=== PATIENT | male | born 1935 | race Caucasian/White ===

== ENCOUNTER → 2016-06-14 | Outpatient (CLI) | payer MEDICARE ==
--- NOTE | 2016-06-14 15:26 | CT ---
EXAMINATION TYPE: CT chest w con DATE OF EXAM: 06/14/2016 2:55 PM COMPARISON: CT chest March 08, 2016 HISTORY: Recheck RUL lung tumor s/p radiation. CT DLP: 657.00 mGycm. Automated Exposure Control for Dose Reduction was Utilized. TECHNIQUE: CT scan of the thorax is performed following with IV Contrast, patient injected with 80 m L of Visipaque 320. FINDINGS: LUNGS: Moderate underlying emphysematous changes redemonstrated. 8 mm Scarlike opacity right lung ape x is seen and felt stable with increasing surrounding reticulation suspected fibrosis may be product of treatment. No new parenchymal nodule or mass is identified in either lung. A 3 mm nodular opacity left lower lobe on axial image 47 is unchanged from prior study image 48. A 6 x 5 mm nodular opacity right lateral lung base on axial image 50 is stable. No pleural effusion or pneumothorax is seen bila terally. Tracheobronchial tree is patent. MEDIASTINUM: There are no new greater than 1 cm hilar or mediastinal lymph nodes. Slightly prominent but subcentimeter paratracheal and subcarinal lymph nodes are stable. No pericardial effusion is see n. There is persistent cardiomegaly with mild to moderate biatrial dilatation. Coronary artery calci fication is redemonstrated. OTHER: Small degree of bilateral gynecomastia is noted. Moderate size hiatal hernia is redemonstrated . There is partial visualization of multiple cystic lesions in the bilateral kidneys with dominant ex ophytic cyst upper pole level posteriorly right kidney redemonstrated. Hydronephrosis versus central right renal cyst is stable. There is moderate to severe mixed plaque in the aortic arch and descendin g aorta. IMPRESSION: Stable scarlike nodule right lung apex with new surrounding fibrotic change. No new mass or adenopathy noted.
== END ==
LOC: RADCTMAIN 12:56
PROVIDERS: ATTEND Radiology Radiation Oncology
DX: D49.1 Neoplasm of unspecified behavior of respiratory system (principal); Z88.6 Allergy status to analgesic agent; Z88.5 Allergy status to narcotic agent
CPT/HCPCS: 82565; 84520; 71260; 36415; Q9967

== ENCOUNTER 2016-07-10 20:30 | Emergency (ER) | payer MEDICARE ==
[2016-07-10 20:39] VITALS: PULSE 60; RESP 18
--- NOTE | 2016-07-10 21:38 | ED ---
General Adult HPI - General Source: patient, family, RN notes reviewed Mode of arrival: ambulatory Limitations: no limitations <Noé Zhou - Last Filed: 07/10/16 22:01> <Kofi Beavers - Last Filed: 07/11/16 09:02> - General Chief complaint: Eye Problems Stated complaint: eye issues-has Macular degeneration Time Seen by Provider: 07/10/16 21:11 - History of Present Illness Initial comments: Patient is an 81-year-old male with significant past medical history for macular degeneration, who presents emergency room today with chief complaint of increased redness irritation and pain to the right eye. He states he noticed some symptoms yesterday and has gotten worse today. at bedside also stating that she's noticed increased redness today. Patient does admit some irritation and pain locally. States does have history of macular degeneration does have very little vision out of the right eye. Patient states is been no visual change. He does admit irritation locally. He denies any other complaints. Patient denies any recent fever, chills, shortness of breath, chest pain, back pain, abdominal pain, nausea or vomiting, numbness or tingling, dysuria or hematuria, constipation or diarrhea, headaches or visual changes, or any other complaints. (Noé Zhou) - Related Data Home Medications Medication Instructions Recorded Confirmed Atorvastatin [Lipitor] 10 mg PO DAILY 04/21/14 07/10/16 Cyanocobalamin [Vitamin B-12] 1,000 mcg SQ QMONTH 04/21/14 07/10/16 Donepezil [Aricept] 10 mg PO DAILY 04/21/14 07/10/16 Ergocalciferol [Vitamin D2 50,000 unit PO Q30D 04/21/14 07/10/16 (DRISDOL)] Ezetimibe [Zetia] 10 mg PO DAILY 04/21/14 07/10/16 Fenofibrate Nanocrystallized 48 mg PO DAILY 04/21/14 07/10/16 [Fenofibrate] Fluticasone/Salmeterol [Advair 1 inhalation PO BID 04/21/14 07/10/16 250-50 Diskus] Furosemide [Lasix] 20 mg PO DIRECTED 04/21/14 07/10/16 Lansoprazole [Prevacid] 15 mg PO DAILY 04/21/14 07/10/16 Levothyroxine Sodium [Synthroid] 125 mcg PO DAILY 04/21/14 07/10/16 Metoprolol Tartrate [Lopressor] 50 mg PO DAILY 04/21/14 07/10/16 Mometasone Furoate [Nasonex] 17 gm NS DAILY 04/21/14 07/10/16 Pioglitazone [Actos] 30 mg PO DAILY 04/21/14 07/10/16 Sertraline [Zoloft] 50 mg PO DAILY 04/21/14 07/10/16 Tamsulosin [Flomax] 0.8 mg PO DAILY 04/21/14 07/10/16 Valsartan [Diovan] 160 mg PO DAILY 04/21/14 07/10/16 amLODIPine [Norvasc] 10 mg PO DAILY 04/21/14 07/10/16 hydrALAZINE HCL 100 mg PO BID 04/21/14 07/10/16 Previous Rx's Medication Instructions Recorded Meclizine [Antivert] 25 mg PO TID #20 tab 04/21/14 Tobramycin 0.3% Ophth Soln [Tobrex 1 - 2 drop BOTH EYES QID 7 Days 07/10/16 0.3% Ophth Soln] Allergies Allergy/AdvReac Type Severity Reaction Status Date / Time aspirin Allergy Unknown Verified 07/10/16 20:38 codeine Allergy Unknown Verified 07/10/16 20:38 Review of Systems ROS Other: All systems not noted in ROS Statement are negative. <Noé Zhou - Last Filed: 07/10/16 22:01> ROS Other: All systems not noted in ROS Statement are negative. <Kofi Beavers - Last Filed: 07/11/16 09:02> ROS Statement: Those systems with pertinent positive or pertinent negative responses have been documented in the HPI. Past Medical History Past Medical History: Diabetes Mellitus, Hyperlipidemia, Hypertension, Thyroid Disorder Additional Past Medical History / Comment(s): macular degeneration History of Any Multi-Drug Resistant Organisms: None Reported Past Surgical History: Heart Catheterization With Stent, Hernia Repair Past Psychological History: No Psychological Hx Reported Smoking Status: Former smoker Past Alcohol Use History: None Reported Past Drug Use History: None Reported <Noé Zhou - Last Filed: 07/10/16 22:01> General Exam Limitations: no limitations <Noé Zhou - Last Filed: 07/10/16 22:01> <NimeshKofi - Last Filed: 07/11/16 09:02> - General Exam Comments Initial Comments: General: The patient is awake and alert, in no distress, and does not appear acutely ill. Eye: Pupils are equal, round and reactive to light, extra-ocular movements are intact. No nystagmus. Increased redness irritation to the right conjunctiva. Left conjunctiva clear. Ocular pressure 27 on the right 9 on the left. Ears, nose, mouth and throat: There are moist mucous membranes and no oral lesions. Neck: The neck is supple, there is no tenderness or JVD. Cardiovascular: There is a regular rate and rhythm. No murmur, rub or gallop is appreciated. Respiratory: Lungs are clear to auscultation, respirations are non-labored, breath sounds are equal. No wheezes, stridor, rales, or rhonchi. Musculoskeletal: Normal ROM, no tenderness. Strength 5/5. Sensation intact. Pulses equal bilaterally 2+. Neurological: A&O x 3. CN II-XII intact, There are no obvious motor or sensory deficits. Coordination appears grossly intact. Speech is normal. Skin: Skin is warm and dry and no rashes or lesions are noted. Psychiatric: Cooperative, appropriate mood & affect, normal judgment. (Noé Zhou) Medical Decision Making <Noé Zhou - Last Filed: 07/10/16 22:01> <Kofi Beavers - Last Filed: 07/11/16 09:02> - Medical Decision Making Patient's right eye was stained and checked underneath Way lamp showed no discharge or lesions. No sign of foreign body. No corneal abrasion. No corneal ulcer. Patient did have some relief with proparacaine drops stating this made her feel better. Patient's pressure was checked here the emergency room 27. Is currently on Xalantan to treat eye pressure. Patient seen in conjunction with attending Dr Beavers. Case discussed with teacher specialist nutritional services director Dr. Mark. Patient will be started on antibiotic drops and advised follow- up with teacher specialist over the next 1-2 days. Advised return here to emergency room if symptoms increase worsen or for concerns. (Noé Zhou) I saw this patient in conjunction with the physician assistant district attorney. I performed independent history and physical exam. Agree with case management. (Kofi Beavers) Disposition Time of Disposition: 22:04 <Noé Zhou - Last Filed: 07/10/16 22:01> <Kofi Beavers - Last Filed: 07/11/16 09:02> Clinical Impression: Conjunctivitis Disposition: HOME SELF-CARE Condition: Good Instructions: Conjunctivitis (ED) Additional Instructions: Please use antibiotic drops as prescribed and follow-up with teacher specialist in the next 2 days as discussed. Please return to emergency room if any symptoms increase or worsen or for any other concerns. Prescriptions: Tobramycin 0.3% Ophth Soln [Tobrex 0.3% Ophth Soln] 1 - 2 drop BOTH EYES QID 7 Days Referrals: Scotty Kimball DO [Primary Care Provider] - 1-2 days
[2016-07-10] MEDS ORDERED: PROPARACAINE 0.5% OPHTH DROPS 15 ML BTL RIGHT EYE STA (21:40)
[2016-07-10 22:50] VITALS: BP 160/70; TEMP 98
== END 2016-07-10 22:50 | disposition home or self-care (01) ==
LOC: EC 20:30
DX: H10.9 Unspecified conjunctivitis (principal); H35.30 Unspecified macular degeneration; I10 Essential (primary) hypertension; E78.5 Hyperlipidemia, unspecified; Z95.5 Presence of coronary angioplasty implant and graft; Z87.891 Personal history of nicotine dependence; Z79.51 Long term (current) use of inhaled steroids; Z79.899 Other long term (current) drug therapy; E07.9 Disorder of thyroid, unspecified; Z88.5 Allergy status to narcotic agent; Z88.6 Allergy status to analgesic agent
CPT/HCPCS: 99283

== ENCOUNTER → 2016-09-17 | Outpatient (CLI) | payer MEDICARE ==
--- NOTE | 2016-09-17 13:33 | CT ---
EXAMINATION TYPE: CT chest wo con DATE OF EXAM: 09/17/2016 COMPARISON: Prior chest CTs June 14, 2016 and March 08, 2016 HISTORY: RUL lobe cancer CT DLP: 380.00 mGycm. Automated Exposure Control for Dose Reduction was Utilized. TECHNIQUE: CT scan of the thorax is performed without IV contrast. IV contrast could not be given du e to diminished renal function. FINDINGS: LUNGS: Moderate underlying emphysematous change is redemonstrated. Scarlike opacity right lung apex i s redemonstrated. This is difficult to accurately measure due to surrounding reticulation in the regu lar soft tissue, it is felt slightly more prominent measuring 1.3 x 0.9 cm on axial image 9 prior exa ms. A 3 mm subpleural nodule left lower lobe posteriorly on axial image 45 is unchanged from prior st udy. A 7 x 4 mm nodular opacity lateral right lung base on axial image 42 is stable from prior. There is stable 5 x 5 mm groundglass nodule anteriorly subpleural level right midlung on axial image 30. N o new nodules or masses are clearly seen. Dependent atelectatic changes both lower lungs is present. No pleural effusion or pneumothorax is seen bilaterally. MEDIASTINUM: Lack of IV contrast is noted to limit evaluation for mediastinal and especially hilar ad enopathy. There are no definitive greater than 1 cm hilar or mediastinal lymph nodes. No significan t pericardial effusion is seen. Cardiomegaly is redemonstrated. Three-vessel coronary artery calcific ation is redemonstrated which is noted marker for coronary artery disease. OTHER: Small degree of bilateral gynecomastia is redemonstrated. There is stable moderate size hiatal hernia. Dependent density consistent with small gallstones in gallbladder is redemonstrated. There a re multiple cysts scattered throughout both kidneys with large cyst partially imaged and right kidney . Hydronephrosis versus large central right renal cyst is stable. An inferior level of right adrenal gland there is nonspecific 2.6 x 2.5 cm right hypodense retroperitoneal mass stable in retrospect fro m prior exams in which adrenal metastatic lesion is not entirely excluded. There is moderate to sever e multilevel spurring in the spine redemonstrated. Exaggerated thoracic kyphosis is seen. IMPRESSION: Scarlike opacity right lung apex is stable or perhaps slightly more prominent versus prio r exam, neoplastic etiology is suspected based on history. Cannot exclude inferior posterior limb rig ht adrenal metastatic lesion. Correlate with outside PET/CT or imaging, consider PET/CT follow-up if there is no such outside study.
== END | disposition home or self-care (01) ==
LOC: RADCTMAIN 11:19
PROVIDERS: ATTEND Radiology Radiation Oncology
DX: C34.11 Malignant neoplasm of upper lobe, right bronchus or lung (principal)
CPT/HCPCS: 71250; 82565; 84520

== ENCOUNTER 2016-11-07 16:33 | Emergency (ER) | payer BC, MEDICARE ==
[2016-11-07 16:46] VITALS: RESP 18
[2016-11-07] MEDS ORDERED: SODIUM CHLORIDE 0.9% 1,000 ML IV STA (17:09)
--- NOTE | 2016-11-07 17:21 | ED ---
General Adult HPI - General Chief complaint: Recheck/Abnormal Lab/Rx Stated complaint: Brusing on Arms Time Seen by Provider: 11/07/16 16:55 Source: family, RN notes reviewed Mode of arrival: ambulatory Limitations: altered mental status - History of Present Illness Initial comments: Patient's an 81-year-old male who presents emergency room today with a chief complaint of some bruising to the upper extremities. He does admit that he noticed some bruises to the back of the right hand and leg left forearm today. Denies any specific injury or trauma. Does admit that he takes a daily baby aspirin. Denies any other blood thinners. Patient denies any other complaints. Further questioning patient does admit that he's had some episodes of feeling dizzy. He states he last for just a few seconds. He states that been ongoing over the last few months. Patient denies any other complaints or symptoms. She denies any dizziness or lightheadedness at this time. Patient denies any recent fever, chills, shortness of breath, chest pain, abdominal pain , nausea or vomiting, numbness or tingling, dysuria or hematuria, constipation or diarrhea, headaches or visual changes, or any other complaints. - Related Data Home Medications Medication Instructions Recorded Confirmed Atorvastatin [Lipitor] 10 mg PO DAILY 04/21/14 11/07/16 Ergocalciferol [Vitamin D2 50,000 unit PO Q14D 04/21/14 11/07/16 (DRISDOL)] Fluticasone/Salmeterol [Advair 1 puff INHALATION RT-BID 04/21/14 11/07/16 250-50 Diskus] Furosemide [Lasix] 20 mg PO MOWEFR 04/21/14 11/07/16 Levothyroxine Sodium [Synthroid] 125 mcg PO MOTUWETHFR 04/21/14 11/07/16 Metoprolol Tartrate [Lopressor] 50 mg PO DAILY 04/21/14 11/07/16 Sertraline [Zoloft] 50 mg PO DAILY 04/21/14 11/07/16 Tamsulosin [Flomax] 0.4 mg PO BID 04/21/14 11/07/16 amLODIPine [Norvasc] 10 mg PO DAILY 04/21/14 11/07/16 hydrALAZINE HCL 50 mg PO TID 04/21/14 11/07/16 Aspirin EC [Ecotrin Low Dose] 81 mg PO HS 11/07/16 11/07/16 Brimonidine Tartrate [Alphagan P 1 drops BOTH EYES BID 11/07/16 11/07/16 0.15% Ophth Soln] Lansoprazole [Prevacid] 30 mg PO DAILY 11/07/16 11/07/16 Latanoprost [Xalatan 0.005%] 1 drop RIGHT EYE HS 11/07/16 11/07/16 Allergies Allergy/AdvReac Type Severity Reaction Status Date / Time aspirin AdvReac Nausea Verified 11/07/16 17:55 codeine AdvReac Nausea & Verified 11/07/16 17:55 Vomiting Review of Systems ROS Statement: Those systems with pertinent positive or pertinent negative responses have been documented in the HPI. ROS Other: All systems not noted in ROS Statement are negative. Past Medical History Past Medical History: Diabetes Mellitus, Hyperlipidemia, Hypertension, Thyroid Disorder Additional Past Medical History / Comment(s): macular degeneration History of Any Multi-Drug Resistant Organisms: None Reported Past Surgical History: Heart Catheterization With Stent, Hernia Repair Past Psychological History: No Psychological Hx Reported Smoking Status: Former smoker Past Alcohol Use History: None Reported Past Drug Use History: None Reported General Exam - General Exam Comments Initial Comments: General: The patient is awake and alert, in no distress, and does not appear acutely ill. Eye: Pupils are equal, round and reactive to light, extra-ocular movements are intact. No nystagmus. There is normal conjunctiva bilaterally. No signs of icterus. Ears, nose, mouth and throat: There are moist mucous membranes and no oral lesions. Neck: The neck is supple, there is no tenderness or JVD. Cardiovascular: There is a regular rate and rhythm. No murmur, rub or gallop is appreciated. Respiratory: Lungs are clear to auscultation, respirations are non-labored, breath sounds are equal. No wheezes, stridor, rales, or rhonchi. Gastrointestinal: Soft, non-distended, non-tender abdomen without masses or organomegaly noted. There is no rebound or guarding present. No CVA tenderness. Bowel sounds are unremarkable. Musculoskeletal: Normal ROM, no tenderness. Strength 5/5. Sensation intact. Pulses equal bilaterally 2+. Neurological: A&O x 3. CN II-XII intact, There are no obvious motor or sensory deficits. Coordination appears grossly intact. Speech is normal. Skin: Skin is warm and dry and no rashes or lesions are noted. Psychiatric: Cooperative, appropriate mood & affect, normal judgment. Limitations: altered mental status Course Vital Signs 11/07/16 16:44 Temperature 97.5 F L Pulse Rate 57 L Respiratory 18 Rate Blood Pressure 149/62 O2 Sat by Pulse 98 Oximetry Medical Decision Making - Medical Decision Making Patient reexamined at this time shows no signs of distress. Patient's kidney function slightly elevated here in the emergency room and shows similar on recent labs. Patient's remaining labs are unremarkable. Case discussed with attending physician Dr. Granado. Patient was given 500 mL bolus here the emergency room. Advised to increase his oral fluids. Advised to follow-up with family doctor. Patient feeling well here the emergency room asymptomatic. Patient will be discharged home - Lab Data Result diagrams: 11/07/16 17:15 11/07/16 17:15 Lab Results 11/07/16 11/07/16 11/07/16 Range/Units 17:15 17:15 17:15 WBC 6.2 (3.8-10.6) k/uL RBC 4.25 L (4.30-5.90) m/uL Hgb 13.0 (13.0-17.5) gm/dL Hct 38.8 L (39.0-53.0) % MCV 91.4 (80.0-100.0) fL MCH 30.5 (25.0-35.0) pg MCHC 33.4 (31.0-37.0) g/dL RDW 14.5 (11.5-15.5) % Plt Count 188 (150-450) k/uL Neutrophils % 69 % Lymphocytes % 16 % Monocytes % 10 % Eosinophils % 2 % Basophils % 1 % Neutrophils # 4.3 (1.3-7.7) k/uL Lymphocytes # 1.0 (1.0-4.8) k/uL Monocytes # 0.6 (0-1.0) k/uL Eosinophils # 0.2 (0-0.7) k/uL Basophils # 0.0 (0-0.2) k/uL PT 10.0 (9.0-12.0) sec INR 1.0 (<1.2) APTT 22.8 (22.0-30.0) sec Sodium 139 (137-145) mmol/L Potassium 4.2 (3.5-5.1) mmol/L Chloride 108 H (98-107) mmol/L Carbon Dioxide 21 L (22-30) mmol/L Anion Gap 10 mmol/L BUN 36 H (9-20) mg/dL Creatinine 1.72 H (0.66-1.25) mg/dL Est GFR (MDRD) Af Amer 46 (>60 ml/min/1.73 sqM) Est GFR (MDRD) Non-Af 38 (>60 ml/min/1.73 sqM) Glucose 101 H (74-99) mg/dL Calcium 8.5 (8.4-10.2) mg/dL Total Bilirubin 0.4 (0.2-1.3) mg/dL AST 23 (17-59) U/L ALT 31 (21-72) U/L Alkaline Phosphatase 103 (38-126) U/L Total Protein 5.9 L (6.3-8.2) g/dL Albumin 3.6 (3.5-5.0) g/dL Disposition Clinical Impression: Lightheaded, Arm bruise Disposition: HOME SELF-CARE Condition: Good Instructions: Lightheadedness (ED) Additional Instructions: Please increase oral fluids as discussed. Please follow family doctor over the next 2 days. Please return to emergency room if any symptoms increase or worsen or for any other concerns. Referrals: Scotty Kimball DO [Primary Care Provider] - 1-2 days Time of Disposition: 18:21
[2016-11-07 17:33] LABS: Basophils % (A) 1 %; CH 31.4; CHCM 34.6; Eosinophils # (A) 0.2 k/uL (0-0.7); Eosinophils % (A) 2 %; HCT 38.8 % (39.0-53.0); Luc # (Auto) 0.16; Luc % (Auto) 3; Lymphocytes % (A) 16 %; MCH 30.5 pg (25.0-35.0); MCHC 33.4 g/dL (31.0-37.0); MCV 91.4 fL (80.0-100.0); Mean Platelet Volume 7.7; Monocytes # (A) 0.6 k/uL (0-1.0); Monocytes % (A) 10 %; Neutrophils # (A) 4.3 k/uL (1.3-7.7); Neutrophils % (A) 69 %; RBC 4.25 m/uL (4.30-5.90); RDW 14.5 % (11.5-15.5); WBC 6.2 k/uL (3.8-10.6); WBC (Perox) 6.28
[2016-11-07 17:36] LABS: Partial Thromboplastin Time 22.8 sec (22.0-30.0)
[2016-11-07 17:38] LABS: Calcium 8.5 mg/dL (8.4-10.2); Potassium 4.2 mmol/L (3.5-5.1); Total Bilirubin 0.4 mg/dL (0.2-1.3); Total Protein 5.9 g/dL (6.3-8.2)
[2016-11-07] MEDS ORDERED: SODIUM CHLORIDE 0.9% 500 ML IV STA (18:13)
[2016-11-07 18:57] VITALS: BP 157/75; PULSE 54; TEMP 97.3
== END 2016-11-07 19:12 | disposition home or self-care (01) ==
LOC: EC 16:33
DX: S60.211A Contusion of right wrist, initial encounter (principal); S80.11XA Contusion of right lower leg, initial encounter; S50.12XA Contusion of left forearm, initial encounter; R42 Dizziness and giddiness; E78.5 Hyperlipidemia, unspecified; E07.9 Disorder of thyroid, unspecified; I10 Essential (primary) hypertension; Z87.891 Personal history of nicotine dependence; Z79.51 Long term (current) use of inhaled steroids; Z79.82 Long term (current) use of aspirin; Z79.899 Other long term (current) drug therapy; Z88.5 Allergy status to narcotic agent; Z88.6 Allergy status to analgesic agent
CPT/HCPCS: 36415; 80053; 85025; 85610; 85730; 99283

== ENCOUNTER → 2017-01-24 | Outpatient (CLI) | payer MEDICARE ==
--- NOTE | 2017-01-24 13:46 | CT ---
EXAMINATION TYPE: CT chest wo con DATE OF EXAM: 01/24/2017 COMPARISON: 09/17/2016 HISTORY: Patient has no complaints at time of service. Follow up study for history of lung CA. CT DLP: 605 mGycm. Automated Exposure Control for Dose Reduction was Utilized. TECHNIQUE: CT scan of the thorax is performed without IV contrast. FINDINGS: LUNGS: Moderate underlying emphysematous change is redemonstrated. Scarlike opacity right lung apex i s redemonstrated. This is difficult to accurately measure due to surrounding reticulation in the regu lar soft tissue, it is felt slightly stable measuring 1.3 x 0.9 cm. A 3 mm subpleural nodule left low er lobe posteriorly is unchanged from prior study. A 7 x 4 mm nodular opacity lateral right lung base is stable from prior. There is stable 5 x 5 mm giancarlo undglass nodule anteriorly subpleural level right midlung. Subpleural nodularity in the right upper l obe inferiorly along the anterior margin is stable. 4 mm nodule left lower lobe retrospectively stabl e there are multiple left lower lobe nodules measuring 4 mm or less which are retrospectively stable some of which appear to be subpleural. Vague nodularity in the right middle lobe on axial image 40 an d anteriorly on axial image 34 within the right upper lobe are nondescript in appearance but stable. No new nodules or masses are clearly seen. Dependent atelectatic changes both lower lungs is present. No pleural effusion or pneumothorax is seen bilaterally. MEDIASTINUM: Lack of IV contrast is noted to limit evaluation for mediastinal and especially hilar ad enopathy. There are no definitive greater than 1 cm hilar or mediastinal lymph nodes. No significant pericardial effusion is seen. Cardiomegaly is redemonstrated. Three-vessel coronary artery calcificat ion is redemonstrated which is noted marker for coronary artery disease. OTHER: Small degree of bilateral gynecomastia is redemonstrated. There is stable moderate size hiatal hernia. Dependent density consistent with small gallstones in gallbladder is redemonstrated. There a re multiple cysts scattered throughout both kidneys with large cyst partially imaged and right kidney . Hydronephrosis versus large central right renal cyst is stable. An inferior level of right adrenal gland there is nonspecific 2.6 x 2.5 cm right hypodense retroperitoneal mass stable in retrospect fro m prior exams in which adrenal metastatic lesion is not entirely excluded. There is moderate to sever e multilevel spurring in the spine redemonstrated. Exaggerated thoracic kyphosis is seen. Cholelithia sis stable. There is a hiatal hernia. IMPRESSION: 1. Stable areas of nodularity involving the lungs unchanged with no new areas of nodularity or adenop athy. 2. Multiple renal masses some of which are hyperdense and may represent hemorrhagic cyst. Other etiol ogies not excluded. Findings are stable. 3. Stable right adrenal nodule unchanged from prior exam. 4. Cholelithiasis
== END | disposition home or self-care (01) ==
LOC: RADCTMAIN 13:00
PROVIDERS: ATTEND Radiology Radiation Oncology
DX: C34.11 Malignant neoplasm of upper lobe, right bronchus or lung (principal); E27.8 Other specified disorders of adrenal gland; K80.20 Calculus of gallbladder without cholecystitis without obstruction; Z88.5 Allergy status to narcotic agent
CPT/HCPCS: 71250

== ENCOUNTER 2017-06-08 17:35 | Emergency (ER) | payer MEDICARE ==
[2017-06-08 17:49] VITALS: RESP 18
--- NOTE | 2017-06-08 18:17 | ED ---
Male Urogenital HPI - General Chief complaint: Urogenital Stated complaint: Urinary retention Time Seen by Provider: 06/08/17 17:41 Source: EMS, RN notes reviewed, old records reviewed Mode of arrival: EMS Limitations: altered mental status - History of Present Illness Initial comments: This patient is a pleasant 81-year-old male with history of dementia presents emergency Department with his after being transferred from [facility]. Patient was sent and due to urinary retention. He is being treated at this time for urinary tract infection. Patient has history of BPH.Patient denies any recent fever, chills, shortness of breath, chest pain, back pain, abdominal pain, nausea vomiting, numbness or tingling, dysuria or hematuria, constipation or diarrhea, headaches or visual changes, or any other current symptoms - Related Data Home Medications Medication Instructions Recorded Confirmed Atorvastatin [Lipitor] 10 mg PO DAILY 04/21/14 06/08/17 Ergocalciferol [Vitamin D2 50,000 unit PO Q15D 04/21/14 06/08/17 (DRISDOL)] Fluticasone/Salmeterol [Advair 1 puff INHALATION RT-BID 04/21/14 06/08/17 250-50 Diskus] Metoprolol Tartrate [Lopressor] 50 mg PO DAILY 04/21/14 06/08/17 Sertraline [Zoloft] 50 mg PO DAILY 04/21/14 06/08/17 Tamsulosin [Flomax] 0.4 mg PO HS 04/21/14 06/08/17 amLODIPine [Norvasc] 10 mg PO DAILY 04/21/14 06/08/17 Aspirin EC [Ecotrin Low Dose] 81 mg PO DAILY@1700 11/07/16 06/08/17 Lansoprazole [Prevacid] 30 mg PO HS 11/07/16 06/08/17 Latanoprost [Xalatan 0.005%] 1 drop BOTH EYES DAILY 11/07/16 06/08/17 Acetaminophen-Codeine 300-30mg 0.5 tab PO Q4H PRN 06/08/17 06/08/17 [Tylenol #3] Amoxicillin 500 mg PO TID 06/08/17 06/08/17 Bisacodyl [Dulcolax] 10 mg RECTAL DAILY PRN 06/08/17 06/08/17 Docusate [Colace] 100 mg PO BID@0800,1700 06/08/17 06/08/17 Enoxaparin Sodium [Lovenox] 30 mg SQ DAILY 06/08/17 06/08/17 Gabapentin [Neurontin] 200 mg PO HS 06/08/17 06/08/17 Glucerna Shake 1 can PO BID-W/MEALS 06/08/17 06/08/17 Lidocaine [Lidoderm 5% Patch] 1 patch TRANSDERM DAILY 06/08/17 06/08/17 Magnesium Hydroxide [Milk of 2,400 mg PO DAILY PRN 06/08/17 06/08/17 Magnesia] Na Phos,M-B/Na Phos,Di-Ba [Fleet 133 ml RECTAL ONCE PRN 06/08/17 06/08/17 Adult] busPIRone HCl [Buspar] 10 mg PO BID PRN 06/08/17 06/08/17 hydrALAZINE HCL 75 mg PO BID 06/08/17 06/08/17 traMADol HCL [Ultram] 100 mg PO Q4HR PRN 06/08/17 06/08/17 Previous Rx's Medication Instructions Recorded Ciprofloxacin HCl [Cipro] 500 mg PO Q12HR 10 Days tab 06/08/17 Mupirocin 2% Oint [Bactroban 2% 1 applic TOPICAL TID #1 tube 06/08/17 Oint] Allergies Allergy/AdvReac Type Severity Reaction Status Date / Time codeine AdvReac Nausea & Verified 06/08/17 17:54 Vomiting Review of Systems ROS Statement: Those systems with pertinent positive or pertinent negative responses have been documented in the HPI. ROS Other: All systems not noted in ROS Statement are negative. Past Medical History Past Medical History: Diabetes Mellitus, Hyperlipidemia, Hypertension, Thyroid Disorder Additional Past Medical History / Comment(s): macular degeneration History of Any Multi-Drug Resistant Organisms: None Reported Past Surgical History: Heart Catheterization With Stent, Hernia Repair Past Psychological History: No Psychological Hx Reported Smoking Status: Former smoker Past Alcohol Use History: None Reported Past Drug Use History: None Reported General Exam - General Exam Comments Initial Comments: This patient is a 81-year-old male. Pleasant. No acute distress. Patient is hard of hearing and has poor visual acuity. Y states is chronic. He is suffering from dementia. Patient's reports that this is baseline status. Limitations: altered mental status General appearance: alert, in no apparent distress Eye exam: Present: normal appearance, PERRL, EOMI. Absent: scleral icterus, conjunctival injection, periorbital swelling ENT exam: Present: normal exam, mucous membranes moist Neck exam: Present: normal inspection. Absent: tenderness, meningismus, lymphadenopathy Respiratory exam: Present: normal lung sounds bilaterally. Absent: respiratory distress, wheezes, rales, rhonchi, stridor Cardiovascular Exam: Present: regular rate, normal rhythm, normal heart sounds. Absent: systolic murmur, diastolic murmur, rubs, gallop, clicks GI/Abdominal exam: Present: soft, tenderness (suprapubic tenderness, mild distension), normal bowel sounds. Absent: distended, guarding, rebound, rigid exam: Present: other (Patient has edema of the foreskin. It is retractable.) . Absent: normal inspection, testicular tenderness, urethral discharge Extremities exam: Present: normal inspection, full ROM, normal capillary refill. Absent: tenderness, pedal edema, joint swelling, calf tenderness Back exam: Present: normal inspection, full ROM Neurological exam: Present: alert, oriented X3, CN II-XII intact Psychiatric exam: Present: normal affect, normal mood Skin exam: Present: warm, dry, intact, normal color. Absent: rash Course Vital Signs 06/08/17 06/08/17 17:40 19:41 Temperature 97.3 F L 98.0 F Pulse Rate 57 L 59 L Respiratory 18 18 Rate Blood Pressure 145/71 160/77 O2 Sat by Pulse 94 L 94 L Oximetry Medical Decision Making - Medical Decision Making 81-year-old female presents emergency department today chief complaint of urinary retention. Patient was sent here for extended care facility after they were not able to obtain a new urinary catheter initiation. He has history of BPH. Patient was given a 14-[place] coud catheter. And urine output completed. We drained approximately 500 mL of fluid. Urine analysis was obtained. He does have red blood cells and white blood cells. We'll send this for culture. We'll start the patient on Cipro for UTI.. Patient's reports that he is been treated for a UTI but does not know the exact antibiotic. I discussed I'll write him for this and they can determine of will be appropriate back it more would facility. They also state that he has a follow-up appointment with urology on Tuesday. He does have some area of swelling around the foreskin, I will treat the patient for some paraphimosis inflammation with mupirocin cream. I discussed that they need to keep the appointment with urologist. Patient's understands treatment plan. Patient has been cooperative. He does suffer from some significant dementia. He has no other complaints at this time. Patient will be transported back to [facility] care facility due to immobilization and dementia. - Lab Data Lab Results 06/08/17 Range/Units 18:15 Urine Color Dark Brown Urine Appearance Cloudy (Clear) Urine pH 6.0 (5.0-8.0) Ur Specific [place] 1.016 (1.001-1.035) Urine Protein 2+ H (Negative) Urine Glucose (UA) Negative (Negative) Urine Ketones Negative (Negative) Urine Blood Moderate H (Negative) Urine Nitrite Positive (Negative) Urine Bilirubin 1+ H (Negative) Urine Urobilinogen 3.0 (<2.0) mg/dL Ur Leukocyte Esterase Moderate H (Negative) Urine RBC >182 H (0-5) /hpf Urine WBC 37 H (0-5) /hpf Urine Bacteria Occasional H (None) /hpf Hyaline Casts 4 H (0-2) /lpf Urine Mucus Rare H (None) /hpf Disposition Clinical Impression: Posthitis, Urinary retention, UTI (urinary tract infection) Disposition: HOME SELF-CARE Condition: Good Instructions: Urinary Tract Infection in Men (ED) Additional Instructions: Patient advised to follow-up with primary care provider. Return to the emergency department if any alarming signs or symptoms occur. Prescriptions: Ciprofloxacin HCl [Cipro] 500 mg PO Q12HR 10 Days tab Mupirocin 2% Oint [Bactroban 2% Oint] 1 applic TOPICAL TID #1 tube Referrals: Neo Baez MD [Primary Care Provider] - 1-2 days Time of Disposition: 19:23
[2017-06-08 19:09] LABS: Appearance,Urine Cloudy (Clear); Bacteria,Urine Occasional /hpf; Bilirubin,Urine 1+ (Negative); Blood,Urine Moderate (Negative); Color,Urine Dark Brown; Glucose,Urine (UA) Negative (Negative); Hyaline Casts,Urine 4 /lpf (0-2); Ketones,Urine Negative (Negative); Leukocyte Esterase,Urine Moderate (Negative); Mucus,Urine Rare /hpf; Protein,Urine 2+ (Negative); RBC,Urine >182 /hpf (0-5); Specific Gravity,Urine 1.016 (1.001-1.035); WBC,Urine 37 /hpf (0-5)
[2017-06-08] MEDS ORDERED: CIPROFLOXACIN HCL 250 MG TAB PO STA (19:21)
[2017-06-08 19:43] VITALS: BP 160/77; PULSE 59; TEMP 98
== END 2017-06-08 21:10 | disposition home or self-care (01) ==
LOC: EC 17:35
DX: N47.7 Other inflammatory diseases of prepuce (principal); N39.0 Urinary tract infection, site not specified; R33.9 Retention of urine, unspecified; N40.0 Benign prostatic hyperplasia without lower urinary tract symptoms; E11.9 Type 2 diabetes mellitus without complications; E78.5 Hyperlipidemia, unspecified; I10 Essential (primary) hypertension; E07.9 Disorder of thyroid, unspecified; Z87.891 Personal history of nicotine dependence; Z79.51 Long term (current) use of inhaled steroids; Z79.82 Long term (current) use of aspirin; Z79.899 Other long term (current) drug therapy; Z88.5 Allergy status to narcotic agent
CPT/HCPCS: 51702; 51798; 81001; 87086; 99284

== ENCOUNTER 2017-06-12 20:24 | Emergency (ER) | payer MEDICARE ==
[2017-06-12 20:51] VITALS: TEMP 97.6
[2017-06-12] MEDS ORDERED: MORPHINE SULFATE 4 MG/ML SYRINGE IVP STA (20:54)
[2017-06-12 21:40] LABS: Anisocytosis Slight; Basophils % (A) 0 %; Eosinophils # (A) 0.1 k/uL (0-0.7); Eosinophils % (A) 1 %; HCT 32.1 % (39.0-53.0); HGB 10.2 gm/dL (13.0-17.5); Lymphocytes # (A) 0.9 k/uL (1.0-4.8); Lymphocytes % (A) 8 %; MCHC 31.8 g/dL (31.0-37.0); MCV 88.1 fL (80.0-100.0); Monocytes # (A) 0.5 k/uL (0-1.0); Monocytes % (A) 5 %; Neutrophils # (A) 10.1 k/uL (1.3-7.7); Neutrophils % (A) 86 %; Platelet Count 287 k/uL (150-450); RBC 3.64 m/uL (4.30-5.90); RDW 16.1 % (11.5-15.5); WBC 11.8 k/uL (3.8-10.6)
--- NOTE | 2017-06-12 21:47 | ED ---
Abdominal Pain HPI - General Chief Complaint: Abdominal Pain Stated Complaint: urine retention Time Seen by Provider: 06/12/17 20:46 Source: patient, EMS Mode of arrival: EMS Limitations: no limitations - History of Present Illness Initial Comments: 80 years old male with a history of for benign prostate hypertrophy, according to patient and his he never had a prostate cancer no prostate surgery he never had a radiation or chemotherapy for prostate problems he has a history of urinary retention he had a Strange catheter and Strange catheter was not draining well at the half-way they changed the Strange with the try to reposition the though there were able to insert the Strange but he didn't drain, after that there was quite swelling of the genitals and numb he has greater than 1 L in his bladder and now is not able to void the appointment with the Dr. Roy tomorrow - Related Data Home Medications Medication Instructions Recorded Confirmed Atorvastatin [Lipitor] 10 mg PO DAILY@0804/21/14 06/12/17 Ergocalciferol [Vitamin D2 50,000 unit PO Q15D 04/21/14 06/12/17 (DRISDOL)] Fluticasone/Salmeterol [Advair 1 puff INHALATION RT-BID@08,209904/21/1406/12 250-50 Diskus] Metoprolol Tartrate [Lopressor] 50 mg PO DAILY@79904/21/14 06/12/17 Sertraline [Zoloft] 50 mg PO DAILY@79904/21/14 06/12/17 Tamsulosin [Flomax] 0.4 mg PO HS@209904/21/14 06/12/17 amLODIPine [Norvasc] 10 mg PO DAILY@79904/21/14 06/12/17 Aspirin EC [Ecotrin Low Dose] 81 mg PO DAILY@17011/07/16 06/12/17 Lansoprazole [Prevacid] 30 mg PO HS@209911/07/16 06/12/17 Latanoprost [Xalatan 0.005%] 1 drop BOTH EYES DAILY@79911/07/16 06/12/17 Acetaminophen-Codeine 300-30mg 0.5 tab PO Q4H PRN 06/08/17 06/12/17 [Tylenol #3] Amoxicillin 500 mg PO TID@0800,1400,199906/08/17 06/12/17 Bisacodyl [Dulcolax] 10 mg RECTAL DAILY PRN 06/08/17 06/12/17 Docusate [Colace] 100 mg PO BID@0800,1700 06/08/17 06/12/17 Enoxaparin Sodium [Lovenox] 30 mg SQ DAILY@0800 06/08/17 06/12/17 Gabapentin [Neurontin] 200 mg PO HS@209906/08/17 06/12/17 Glucerna Shake 1 can PO BID@0800,1700 06/08/17 06/12/17 Lidocaine [Lidoderm 5% Patch] 1 patch TRANSDERM DAILY 06/08/17 06/12/17 Magnesium Hydroxide [Milk of 2,400 mg PO DAILY PRN 06/08/17 06/12/17 Magnesia] Na Phos,M-B/Na Phos,Di-Ba [Fleet 133 ml RECTAL ONCE PRN 06/08/17 06/12/17 Adult] busPIRone HCl [Buspar] 10 mg PO BID PRN 06/08/17 06/12/17 hydrALAZINE HCL 75 mg PO BID@0800,209906/08/17 06/12/17 traMADol HCL [Ultram] 100 mg PO Q4HR PRN 06/08/17 06/12/17 Allergies Allergy/AdvReac Type Severity Reaction Status Date / Time codeine AdvReac Nausea & Verified 06/12/17 20:57 Vomiting Review of Systems ROS Statement: Those systems with pertinent positive or pertinent negative responses have been documented in the HPI. ROS Other: All systems not noted in ROS Statement are negative. Past Medical History Past Medical History: Diabetes Mellitus, Hyperlipidemia, Hypertension, Thyroid Disorder Additional Past Medical History / Comment(s): macular degeneration History of Any Multi-Drug Resistant Organisms: None Reported Past Surgical History: Heart Catheterization With Stent, Hernia Repair Past Psychological History: No Psychological Hx Reported Smoking Status: Former smoker Past Alcohol Use History: None Reported Past Drug Use History: None Reported General Exam - General Exam Comments Initial Comments: General: The patient is awake and alert, in severe distress because of the pain Skin: Skin is warm and dry and no rashes or lesions are noted. Eye: Pupils are equal, round and reactive to light, extra-ocular movements are intact; there is normal conjunctiva bilaterally. Ears, nose, mouth and throat: There are moist mucous membranes and no oral lesions. Neck: The neck is supple, there is no tenderness Cardiovascular: There is a regular rate and rhythm. No murmur, rub or gallop is appreciated. Respiratory: To auscultation bilateral, no wheezing no rhonchi no distress respiratory drew noticed Gastrointestinal: Soft, non-tender in the upper abdomen but he is tender over the lower abdomen, better seems distended and obvious Back: There is no tenderness to palpation in the midline. There is no obvious deformity. Musculoskeletal: Normal ROM, no tenderness, There is no pedal edema. There is no calf tenderness or swelling. No cords were appreciated. Neurological: CN II-XII intact, Cranial nerves III through XII are intact. There are no obvious motor or sensory deficits. Coordination appears grossly intact. Speech is normal. Psychiatric: Cooperative, appropriate mood & affect, normal judgment. Limitations: no limitations Course Vital Signs 06/12/17 20:46 Temperature 97.6 F Pulse Rate 61 Respiratory 18 Rate Blood Pressure 134/60 O2 Sat by Pulse 97 Oximetry [place] possibility of a ureteral injury, call Dr. Meade that came and agreed to come in and will arrange the cystoscopy cart for him Dr. Meade came in he put the Strange back in with the help of a scope, patient will follow-up with urology per their instructions Medical Decision Making - Lab Data Result diagrams: 06/12/17 21:30 06/12/17 21:30 Lab Results 06/12/17 06/12/17 Range/Units 21:30 21:30 WBC 11.8 H (3.8-10.6) k/uL RBC 3.64 L (4.30-5.90) m/uL Hgb 10.2 L (13.0-17.5) gm/dL Hct 32.1 L (39.0-53.0) % MCV 88.1 (80.0-100.0) fL MCH 28.0 (25.0-35.0) pg MCHC 31.8 (31.0-37.0) g/dL RDW 16.1 H (11.5-15.5) % Plt Count 287 (150-450) k/uL Neutrophils % 86 % Lymphocytes % 8 % Monocytes % 5 % Eosinophils % 1 % Basophils % 0 % Neutrophils # 10.1 H (1.3-7.7) k/uL Lymphocytes # 0.9 L (1.0-4.8) k/uL Monocytes # 0.5 (0-1.0) k/uL Eosinophils # 0.1 (0-0.7) k/uL Basophils # 0.0 (0-0.2) k/uL Anisocytosis Slight Sodium 132 L (137-145) mmol/L Potassium 4.8 (3.5-5.1) mmol/L Chloride 104 (98-107) mmol/L Carbon Dioxide 22 (22-30) mmol/L Anion Gap 6 mmol/L BUN 30 H (9-20) mg/dL Creatinine 2.10 H (0.66-1.25) mg/dL Est GFR (MDRD) Af Amer 37 (>60 ml/min/1.73 sqM) Est GFR (MDRD) Non-Af 30 (>60 ml/min/1.73 sqM) Glucose 127 H (74-99) mg/dL Calcium 8.6 (8.4-10.2) mg/dL Total Bilirubin 0.5 (0.2-1.3) mg/dL AST 21 (17-59) U/L ALT 21 (21-72) U/L Alkaline Phosphatase 99 (38-126) U/L Total Protein 5.0 L (6.3-8.2) g/dL Albumin 2.7 L (3.5-5.0) g/dL Amylase 61 (30-110) U/L Lipase 164 (23-300) U/L Disposition Clinical Impression: Urinary retention Disposition: HOME SELF-CARE Condition: Good Referrals: Neo Baez MD [Primary Care Provider] - 1-2 days
[2017-06-12 21:49] LABS: Albumin 2.7 g/dL (3.5-5.0); Calcium 8.6 mg/dL (8.4-10.2); Potassium 4.8 mmol/L (3.5-5.1); Total Bilirubin 0.5 mg/dL (0.2-1.3)
[2017-06-12] MEDS ORDERED: MORPHINE SULFATE 4 MG/ML SYRINGE IVP ONE (22:04)
--- NOTE | 2017-06-12 23:24 | P.GSCN ---
History of Present Illness Consult date: 06/12/17 Reason for Consult: Urinary retention and inability to insert catheter History of present illness: The patient is an 81-year-old male who fractured his left femur on 05/06/2017. He was treated at [facility] in [facility] apparently with an intramedullary janessa. A catheter was inserted at that time and the patient apparently has been unable to void since then. The catheter was changed in the [facility] emergency room on 06/08. The patient was transferred from his skilled nursing this evening apparently because he had poor urine output and his catheter was exchanged and only minimal urine drained. In addition to this the patient had paraphimosis from previous attempts at placement of a catheter. When the patient came to the emergency room this evening he was bladder scanned and reportedly had 1000 mL in his bladder. I was asked see the patient for the purpose of catheter placement as an attempt was made to insert a catheter by the nurses and this was unsuccessful. According to the patient's he usually voids every 1-2 hours during the day and several times at night. He has no previous history of urinary retention. He has had recent diarrhea and has not been eating well although reportedly he has been taking fluids. Review of Systems - Constitutional Denies fever - Cardiovascular Denies shortness of breath - Gastrointestinal Reports diarrhea, Reports nausea - Genitourinary Reports as per HPI Past Medical History Past Medical History: Diabetes Mellitus, Hyperlipidemia, Hypertension, Thyroid Disorder Additional Past Medical History / Comment(s): macular degeneration History of Any Multi-Drug Resistant Organisms: None Reported Past Surgical History: Heart Catheterization With Stent, Hernia Repair Additional Past Surgical History / Comment(s): Fixation of fractured left femur Past Psychological History: No Psychological Hx Reported Smoking Status: Former smoker Past Alcohol Use History: None Reported Past Drug Use History: None Reported Medications and Allergies Home Medications Medication Instructions Recorded Confirmed Type Atorvastatin [Lipitor] 10 mg PO DAILY@0800 04/21/14 06/12/17 History Ergocalciferol [Vitamin D2 50,000 unit PO Q15D 04/21/14 06/12/17 History (DRISDOL)] Fluticasone/Salmeterol [Advair 1 puff INHALATION RT-BID@0800,2100 04/21/1406/12 History 250-50 Diskus] Metoprolol Tartrate [Lopressor] 50 mg PO DAILY@0800 04/21/14 06/12/17 History Sertraline [Zoloft] 50 mg PO DAILY@79904/21/14 06/12/17 History Tamsulosin [Flomax] 0.4 mg PO HS@209904/21/14 06/12/17 History amLODIPine [Norvasc] 10 mg PO DAILY@0804/21/14 06/12/17 History Aspirin EC [Ecotrin Low Dose] 81 mg PO DAILY@169911/07/16 06/12/17 History Lansoprazole [Prevacid] 30 mg PO HS@209911/07/16 06/12/17 History Latanoprost [Xalatan 0.005%] 1 drop BOTH EYES DAILY@79911/07/16 06/12/17 History Acetaminophen-Codeine 300-30mg 0.5 tab PO Q4H PRN 06/08/17 06/12/17 History [Tylenol #3] Amoxicillin 500 mg PO TID@0800,1400,199906/08/17 06/12/17 History Bisacodyl [Dulcolax] 10 mg RECTAL DAILY PRN 06/08/17 06/12/17 History Docusate [Colace] 100 mg PO BID@0800,169906/08/17 06/12/17 History Enoxaparin Sodium [Lovenox] 30 mg SQ DAILY@79906/08/17 06/12/17 History Gabapentin [Neurontin] 200 mg PO HS@209906/08/17 06/12/17 History Glucerna Shake 1 can PO BID@0800,169906/08/17 06/12/17 History Lidocaine [Lidoderm 5% Patch] 1 patch TRANSDERM DAILY 06/08/17 06/12/17 History Magnesium Hydroxide [Milk of 2,400 mg PO DAILY PRN 06/08/17 06/12/17 History Magnesia] Na Phos,M-B/Na Phos,Di-Ba [Fleet 133 ml RECTAL ONCE PRN 06/08/17 06/12/17 History Adult] busPIRone HCl [Buspar] 10 mg PO BID PRN 06/08/17 06/12/17 History hydrALAZINE HCL 75 mg PO BID@0800,209906/08/17 06/12/17 History traMADol HCL [Ultram] 100 mg PO Q4HR PRN 06/08/17 06/12/17 History Allergies Allergy/AdvReac Type Severity Reaction Status Date / Time codeine AdvReac Nausea & Verified 06/12/17 20:57 Vomiting Surgical - Exam Vital Signs Temp Pulse Resp BP Pulse Ox 97.6 F 61 18 134/60 97 06/12/17 20:46 06/12/17 20:46 06/12/17 20:46 06/12/17 20:46 06/12/17 20:46 - General moderate distress, obese - Respiratory normal respiratory effort - Abdomen Abdomen: no masses, distended Hernia: none - Genitourinary testicles non-tender, other (The penis is uncircumcised and had been retracted behind the glans causing paraphimosis. The paraphimosis was reduced and the glans and urethral meatus appeared normal. There was no blood at the urethral meatus.) - Rectum Rectum: normal sphincter tone, other (Prostate is 1-2+ enlarged and benign in consistency) Results - Labs 06/12/17 21:30 06/12/17 21:30 Abnormal Lab Results - Last 24 Hours (Table) 06/12/17 06/12/17 Range/Units 21:30 21:30 WBC 11.8 H (3.8-10.6) k/uL RBC 3.64 L (4.30-5.90) m/uL Hgb 10.2 L (13.0-17.5) gm/dL Hct 32.1 L (39.0-53.0) % RDW 16.1 H (11.5-15.5) % Neutrophils # 10.1 H (1.3-7.7) k/uL Lymphocytes # 0.9 L (1.0-4.8) k/uL Sodium 132 L (137-145) mmol/L BUN 30 H (9-20) mg/dL Creatinine 2.10 H (0.66-1.25) mg/dL Glucose 127 H (74-99) mg/dL Total Protein 5.0 L (6.3-8.2) g/dL Albumin 2.7 L (3.5-5.0) g/dL Diabetes panel 06/12/17 Range/Units 21:30 Sodium 132 L (137-145) mmol/L Potassium 4.8 (3.5-5.1) mmol/L Chloride 104 (98-107) mmol/L Carbon Dioxide 22 (22-30) mmol/L BUN 30 H (9-20) mg/dL Creatinine 2.10 H (0.66-1.25) mg/dL Glucose 127 H (74-99) mg/dL Calcium 8.6 (8.4-10.2) mg/dL AST 21 (17-59) U/L ALT 21 (21-72) U/L Alkaline Phosphatase 99 (38-126) U/L Total Protein 5.0 L (6.3-8.2) g/dL Albumin 2.7 L (3.5-5.0) g/dL Calcium panel 06/12/17 Range/Units 21:30 Calcium 8.6 (8.4-10.2) mg/dL Albumin 2.7 L (3.5-5.0) g/dL Pituitary panel 06/12/17 Range/Units 21:30 Sodium 132 L (137-145) mmol/L Potassium 4.8 (3.5-5.1) mmol/L Chloride 104 (98-107) mmol/L Carbon Dioxide 22 (22-30) mmol/L BUN 30 H (9-20) mg/dL Creatinine 2.10 H (0.66-1.25) mg/dL Glucose 127 H (74-99) mg/dL Calcium 8.6 (8.4-10.2) mg/dL Adrenal panel 06/12/17 Range/Units 21:30 Sodium 132 L (137-145) mmol/L Potassium 4.8 (3.5-5.1) mmol/L Chloride 104 (98-107) mmol/L Carbon Dioxide 22 (22-30) mmol/L BUN 30 H (9-20) mg/dL Creatinine 2.10 H (0.66-1.25) mg/dL Glucose 127 H (74-99) mg/dL Calcium 8.6 (8.4-10.2) mg/dL Total Bilirubin 0.5 (0.2-1.3) mg/dL AST 21 (17-59) U/L ALT 21 (21-72) U/L Alkaline Phosphatase 99 (38-126) U/L Total Protein 5.0 L (6.3-8.2) g/dL Albumin 2.7 L (3.5-5.0) g/dL Assessment and Plan (1) Urinary retention Narrative/Plan: Urinary retention with paraphimosis-Following my examination I passed a 16- [place]raini coud catheter without difficulty into the bladder and the catheter would easily irrigate into the bladder but no drainage would return. I then passed a 20-Bahraini coud catheter into the bladder and had the same problem. Following this I performed cystoscopy and there did not appear to be any trauma to the urethra. Urine present within the bladder was clear. The 20-[place]i coud catheter was then passed over a Glidewire which was passed through the cystoscope and approximately 150 mL of concentrated urine drained. I repeated the bladder scan and there did not appear to be any remaining urine present within the bladder. My final impression is that this patient most likely had only a small amount of urine present within his bladder and the original bladder scan was incorrect. The catheter was left to drainage. He did have an appointment to see Dr. Gallegos in my office later this week. Current Visit: Yes Status: Acute Code(s): R33.9 - RETENTION OF URINE, UNSPECIFIED SNOMED Code(s): 563909236 Time with Patient: Greater than 30
--- NOTE | 2017-06-12 23:30 | P.OP ---
Date of Procedure: 06/12/17 Preoperative Diagnosis: Urinary retention and inability to insert catheter Postoperative Diagnosis: Relatively normal urethra with no visible trauma. Reduced urine output- possibly secondary to recent diarrhea. Procedure(s) Performed: Cystoscopy Estimated Blood Loss (ml): 0 Pathology: none sent Condition: stable Disposition: same day Indications for Procedure: Patient is an 81-year-old male who was transferred from a senior living because he apparently had no urine output after his catheter was changed earlier today. It was unclear whether the patient was in urinary retention or the patient was oliguric. A bladder scan performed when he initially came to the emergency room reportedly showed 1000 mL. Several attempts were made to insert a catheter but virtually no urine drained from the bladder. Cystoscopy was planned due to the uncertainty as to whether the catheters were actually in the bladder. Description of Procedure: The patient was placed supine on his emergency room bed. The penis was prepped with Betadine solution and draped in a sterile fashion. The 16-Malagasy flexible cystoscope was passed through the urethra under direct vision. Anterior urethra was free of inflammatory lesion tumor and stricture. Prostatic urethra showed evidence of moderate lateral lobe enlargement. No visible trauma was present within the urethra. The bladder was examined and a moderate amount of urine was present within it but the urine was relatively clear. A 0.035 straight Glidewire was then advanced through the cystoscope and into the bladder. The cystoscope was withdrawn leaving the Glidewire in place. The 20- Malagasy coud catheter was modified with a slit at its tip and advanced over the Glidewire and into the bladder. Approximately 150 mL of concentrated urine drained. Patient tolerated procedure well. Bladder scan was performed after placement of the catheter and showed less than 30 mL within the bladder.
[2017-06-13 00:19] VITALS: BP 158/75; PULSE 80; RESP 16
== END 2017-06-13 00:17 | disposition home or self-care (01) ==
LOC: EC 20:24
DX: R33.9 Retention of urine, unspecified (principal); E78.5 Hyperlipidemia, unspecified; I10 Essential (primary) hypertension; E66.9 Obesity, unspecified; Z87.891 Personal history of nicotine dependence; Z79.51 Long term (current) use of inhaled steroids; Z79.82 Long term (current) use of aspirin; Z79.899 Other long term (current) drug therapy; Z88.5 Allergy status to narcotic agent; Z68.32 Body mass index [BMI] 32.0-32.9, adult
CPT/HCPCS: 51798; 36415; 80053; 82150; 83690; 85025; 99285; 96374; 51702; J2270

== ENCOUNTER 2017-06-14 13:12 | Inpatient (IN) | payer MEDICARE ==
--- NOTE | 2017-06-14 14:19 | ED ---
General Adult HPI - General Chief complaint: Abdominal Pain Stated complaint: Abd.pain Time Seen by Provider: 06/14/17 13:20 Source: patient, family, EMS, RN notes reviewed, old records reviewed Mode of arrival: EMS Limitations: altered mental status - History of Present Illness Initial comments: Chief complaint and history of present illness this is an 81-year-old male here with family. The patient has been in a local nursing facility after being discharged from the hospital after having had a janessa placed in his left femur after a fall approximately one month ago. The patient has always had difficulty urinating. More recently the patient has had Strange catheters placed and replaced. Patient was in emergency room 2 nights ago and the urologist placed a catheter after doing a cystoscopy. His impression was minimal retention at the time. He was sent emergency room today by the nursing staff because of abdominal discomfort and again what appeared to be urinary retention. Bladder scan done upon arrival to emergency room showed 680 ML's of urine in the bladder. The urologist's report of his cystoscopy was left lobe of the prostate appeared to be enlarged. He had minimal to no difficulty placing a coud tipped catheter which is been draining. While in emergency room the patient will complain of chest discomfort. Which was given mild palpation of the anterior chest wall be created the pain per the patient. - Related Data Home Medications Medication Instructions Recorded Confirmed Atorvastatin [Lipitor] 10 mg PO DAILY@79904/21/14 06/14/17 Fluticasone/Salmeterol [Advair 1 puff INHALATION RT-BID@0800,209904/21/1406/14 250-50 Diskus] Metoprolol Tartrate [Lopressor] 50 mg PO DAILY@79904/21/14 06/14/17 Sertraline [Zoloft] 50 mg PO DAILY@79904/21/14 06/14/17 Tamsulosin [Flomax] 0.4 mg PO HS@209904/21/14 06/14/17 amLODIPine [Norvasc] 10 mg PO DAILY@79904/21/14 06/14/17 Aspirin EC [Ecotrin Low Dose] 81 mg PO DAILY@17011/07/16 06/14/17 Lansoprazole [Prevacid] 30 mg PO HS@209911/07/16 06/14/17 Latanoprost [Xalatan 0.005%] 1 drop BOTH EYES DAILY@0800 11/07/16 06/14/17 Acetaminophen-Codeine 300-30mg 0.5 tab PO Q4H PRN 06/08/17 06/14/17 [Tylenol #3] Amoxicillin 500 mg PO TID@0800,1400,199906/08/17 06/14/17 Bisacodyl [Dulcolax] 10 mg RECTAL DAILY PRN 06/08/17 06/14/17 Docusate [Colace] 100 mg PO BID@0800,1700 06/08/17 06/14/17 Gabapentin [Neurontin] 200 mg PO HS@209906/08/17 06/14/17 Glucerna Shake 1 can PO BID@0800,1700 06/08/17 06/14/17 Lidocaine [Lidoderm 5% Patch] 1 patch TRANSDERM DAILY@0800 06/08/17 06/14/17 Magnesium Hydroxide [Milk of 2,400 mg PO DAILY PRN 06/08/17 06/14/17 Magnesia] Na Phos,M-B/Na Phos,Di-Ba [Fleet 133 ml RECTAL ONCE PRN 06/08/17 06/14/17 Adult] hydrALAZINE HCL 75 mg PO BID@0800,209906/08/17 06/14/17 traMADol HCL [Ultram] 100 mg PO Q4HR PRN 06/08/17 06/14/17 Finasteride [Proscar] 5 mg PO DAILY 06/14/17 06/14/17 Allergies Allergy/AdvReac Type Severity Reaction Status Date / Time codeine AdvReac Nausea & Verified 06/14/17 13:28 Vomiting Review of Systems ROS Statement: Those systems with pertinent positive or pertinent negative responses have been documented in the HPI. review of systems. No apparent headache family reports patient does not see well. This caused him to stumble and fall approximately one month ago resulting in a fractured femur. The patient has had difficulty urinating and has had catheters placed and replaced for this problem. Currently with a catheter. Family reports the patient had diarrhea yesterday and abraded large normal bowel movement today. Nurses feels of the patient's mildly distended. Family states that is always a little distended but possibly slightly more today. The patient complains discomfort of the Strange catheter at the meatus of his penis. He also had paraphimosis 2 days ago which was reduced by Dr. segundo 2 days ago and is normal at this time. the patient was also seen in the correction by Dr. Roy yesterday. His notes were sent here, the patient's on amoxicillin and the catheter was functioning normally yesterday. past medical history significant for coronary artery disease, previous [place], hypertension, peripheral vascular disease, diabetes mellitus, vitamin D deficiency, hyperlipidemia, chronic constipation, GERD, BPH, chronic renal disease stage III, secondary to hypertensive nephrosclerosis. Recurrent UTIs, renal cyst, cataracts, macular degeneration COPD. Patient also has a history of lung cancer with previous treatment and thyroid cancer. Past surgeries cardiac cath, heart stents, femoral bypass, abdominal hernia repair, appendectomy, hemorrhoidectomy, TURP 2012, cataract surgery bilateral, thyroid surgery total thyroidectomy. He's had back surgery, bilateral hip replacements and left femur janessa placed approximate 6 weeks ago. Family history diabetes, high blood pressure. No current use of alcohol or cigarettes. ALLERGIES codeine. ROS Other: All systems not noted in ROS Statement are negative. Past Medical History Past Medical History: Diabetes Mellitus, Hyperlipidemia, Hypertension, Thyroid Disorder Additional Past Medical History / Comment(s): macular degeneration History of Any Multi-Drug Resistant Organisms: None Reported Past Surgical History: Heart Catheterization With Stent, Hernia Repair Additional Past Surgical History / Comment(s): Fixation of fractured left femur Past Psychological History: No Psychological Hx Reported Smoking Status: Former smoker Past Alcohol Use History: None Reported Past Drug Use History: None Reported General Exam - General Exam Comments Initial Comments: General: The patient is awake and alert, heart appearing. Complaining of chest heaviness which is reproducible. An abdominal pain as well as pain to his penis. [facility] sent emergency room because of these complaints plus decreased urine output. The patient does have indwelling Strange catheter placed by urologist 2 days ago and rechecked her urologist yesterday. Vital signs temperature 97.3 pulse 51 respiratory rate 20 pulse ox 95% on 2 L. 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 Ears, nose, mouth and throat: There are moist mucous membranes and no oral lesions. Neck: The neck is supple, Cardiovascular: There is a regular rate and rhythm. No murmur, rub or gallop is appreciated.during examination patient complains of chest discomfort has also been was sitting on him. Even mild palpation of anterior chest wall 3 crit the pain that the patient seemed to be complaining of. Denies any recent injury. Respiratory: Lungs are clear to auscultation, respirations are non-labored, breath sounds are equal. No wheezes, stridor, rales, or rhonchi. Gastrointestinal: nursing staff felt the patient's abdomen was mildly distended family states is normally distended may be slightly more now. Bladder scan was performed showing retained urine at approximate 680 ML's area he does have an indwelling Strange catheter which appears to be working. Palpation of the abdomen causes mild discomfort. No organomegaly appreciated. Fair amount of tympanitic gas appreciated. Active bowel sounds. Family states the patient had a large amount of loose stool yesterday and per family and nursing staff at a large good bowel movement normal this morning. Back: currently no complaints of back pain. Musculoskeletal: recent i.e. in the past 6 weeks, janessa placed the left femur and another hospital because of a fall .left heel is covered with a bandage for ulcer on the heel per family. Neurological: neurologically grossly intact, and not ambulating because of his recent surgery. Skin: Skin is warm and dry and no rashes or lesions are noted. Limitations: altered mental status Course Vital Signs 06/14/17 06/14/17 13:14 14:19 Temperature 97.3 F L Pulse Rate 51 L 52 L Respiratory 20 20 Rate Blood Pressure 126/59 133/65 O2 Sat by Pulse 95 98 Oximetry Medical Decision Making - Medical Decision Making Medical decision making; this is a 1-year-old male sent emergency room from nursing facility because increased abdominal bloating decreased urine output. The patient has a Strange catheter which showed 680 ML's urine in the bladder. nurse tried to irrigate the catheter she would put 50 or 60 ML's in and then slowly get 20 out. While in emergency room the patient's put out only 40 ML's over past several hours. Patient also complaining of chest discomfort which is reproducible. Labs show white count 9.9 hemoglobin 9.4 hematocrit 28.6 with a INR 1.0. Potassium 5.9 BUN 40 creatinine 2.1 GFR 28. Amylase lipase normal limits. Plasma lactic acid normal at 0.7. Urine no signs of leuk esterase or nitrite. By does have 14 reds 6 whites. Currently on amoxicillin. troponin 0.013 CK-MB 2.7. Chest x-ray was done and reviewed by radiologist his impression is #1 cardiomegaly, COPD and left basilar atelectasis favored over infiltrates. #2 upper mediastinal prominence stable dating back to multiple exams felt to be related to tortuous vasculature. #3 subsegmental chronic appearing consolidations are particularly should within the medial margin of the right upper lobe. As read by Dr. Palmer X-ray of the abdomen was done and reviewed radiologist his impression is lung bases are clear. Heart may be enlarged, size may be exaggerated by technique. There is no evident bowel obstruction or pneumoperitoneum. Gas filled loops of small and large bowel are noted. Postop changes noted to the hips. There are vascular calcifications within the pelvis. Impression; no acute abnormalities are evident. Follow-up is indicated. As read by Dr. Sanchez case discussed with Dr. Paulino. Patient be admitted her service with consultation from nephrology and urology. - Lab Data Result diagrams: 06/14/17 14:17 06/14/17 14:17 Lab Results 06/14/17 06/14/17 06/14/17 Range/Units 14:17 14:17 14:17 WBC 9.9 (3.8-10.6) k/uL RBC 3.28 L (4.30-5.90) m/uL Hgb 9.4 L (13.0-17.5) gm/dL Hct 28.6 L (39.0-53.0) % MCV 87.3 (80.0-100.0) fL MCH 28.6 (25.0-35.0) pg MCHC 32.7 (31.0-37.0) g/dL RDW 16.1 H (11.5-15.5) % Plt Count 263 (150-450) k/uL Neutrophils % 85 % Lymphocytes % 8 % Monocytes % 4 % Eosinophils % 2 % Basophils % 0 % Neutrophils # 8.4 H (1.3-7.7) k/uL Lymphocytes # 0.8 L (1.0-4.8) k/uL Monocytes # 0.4 (0-1.0) k/uL Eosinophils # 0.2 (0-0.7) k/uL Basophils # 0.0 (0-0.2) k/uL Anisocytosis Slight PT (9.0-12.0) sec INR (<1.2) APTT (22.0-30.0) sec Sodium 133 L (137-145) mmol/L Potassium 5.9 H (3.5-5.1) mmol/L Chloride 105 (98-107) mmol/L Carbon Dioxide 21 L (22-30) mmol/L Anion Gap 7 mmol/L BUN 40 H (9-20) mg/dL Creatinine 2.10 H (0.66-1.25) mg/dL Est GFR (CKD-EPI)AfAm 33 (>60 ml/min/1.73 sqM) Est GFR (CKD-EPI)NonAf 28 (>60 ml/min/1.73 sqM) Glucose 96 (74-99) mg/dL Plasma Lactic Acid Arian (0.7-2.0) mmol/L Calcium 8.0 L (8.4-10.2) mg/dL Total Bilirubin 0.9 (0.2-1.3) mg/dL AST 44 (17-59) U/L ALT 15 L (21-72) U/L Alkaline Phosphatase 75 (38-126) U/L Total Creatine Kinase 77 (55-170) U/L CK-MB (CK-2) 2.7 H* (0.0-2.4) ng/mL CK-MB (CK-2) Rel Index 3.5 Troponin I 0.013 (0.000-0.034) ng/mL Total Protein 5.4 L (6.3-8.2) g/dL Albumin 2.6 L (3.5-5.0) g/dL Amylase 38 (30-110) U/L Lipase 70 (23-300) U/L Urine Color Urine Appearance (Clear) Urine pH (5.0-8.0) Ur Specific Holloway (1.001-1.035) Urine Protein (Negative) Urine Glucose (UA) (Negative) Urine Ketones (Negative) Urine Blood (Negative) Urine Nitrite (Negative) Urine Bilirubin (Negative) Urine Urobilinogen (<2.0) mg/dL Ur Leukocyte Esterase (Negative) Urine RBC (0-5) /hpf Urine WBC (0-5) /hpf Ur Squamous Epith Cells (0-4) /hpf Urine Bacteria (None) /hpf Hyaline Casts (0-2) /lpf Urine Mucus (None) /hpf 06/14/17 06/14/17 06/14/17 Range/Units 14:17 14:17 14:30 WBC (3.8-10.6) k/uL RBC (4.30-5.90) m/uL Hgb (13.0-17.5) gm/dL Hct (39.0-53.0) % MCV (80.0-100.0) fL MCH (25.0-35.0) pg MCHC (31.0-37.0) g/dL RDW (11.5-15.5) % Plt Count (150-450) k/uL Neutrophils % % Lymphocytes % % Monocytes % % Eosinophils % % Basophils % % Neutrophils # (1.3-7.7) k/uL Lymphocytes # (1.0-4.8) k/uL Monocytes # (0-1.0) k/uL Eosinophils # (0-0.7) k/uL Basophils # (0-0.2) k/uL Anisocytosis PT 10.2 (9.0-12.0) sec INR 1.0 (<1.2) APTT 24.3 (22.0-30.0) sec Sodium (137-145) mmol/L Potassium (3.5-5.1) mmol/L Chloride (98-107) mmol/L Carbon Dioxide (22-30) mmol/L Anion Gap mmol/L BUN (9-20) mg/dL Creatinine (0.66-1.25) mg/dL Est GFR (CKD-EPI)AfAm (>60 ml/min/1.73 sqM) Est GFR (CKD-EPI)NonAf (>60 ml/min/1.73 sqM) Glucose (74-99) mg/dL Plasma Lactic Acid Arian 0.7 (0.7-2.0) mmol/L Calcium (8.4-10.2) mg/dL Total Bilirubin (0.2-1.3) mg/dL AST (17-59) U/L ALT (21-72) U/L Alkaline Phosphatase (38-126) U/L Total Creatine Kinase (55-170) U/L CK-MB (CK-2) (0.0-2.4) ng/mL CK-MB (CK-2) Rel Index Troponin I (0.000-0.034) ng/mL Total Protein (6.3-8.2) g/dL Albumin (3.5-5.0) g/dL Amylase (30-110) U/L Lipase (23-300) U/L Urine Color Yellow Urine Appearance Clear (Clear) Urine pH 5.5 (5.0-8.0) Ur Specific Holloway 1.016 (1.001-1.035) Urine Protein 1+ H (Negative) Urine Glucose (UA) Negative (Negative) Urine Ketones Negative (Negative) Urine Blood Negative (Negative) Urine Nitrite Negative (Negative) Urine Bilirubin Negative (Negative) Urine Urobilinogen <2.0 (<2.0) mg/dL Ur Leukocyte Esterase Small H (Negative) Urine RBC 14 H (0-5) /hpf Urine WBC 6 H (0-5) /hpf Ur Squamous Epith Cells <1 (0-4) /hpf Urine Bacteria Rare H (None) /hpf Hyaline Casts 3 H (0-2) /lpf Urine Mucus Rare H (None) /hpf Disposition Clinical Impression: Chronic renal failure, Atypical chest pain, Acute urinary retention Disposition: ADMITTED IP TO THIS [facility] Condition: Serious Referrals: Neo Baez MD [Primary Care Provider] - 1-2 days
[2017-06-14 14:30] LABS: Anisocytosis Slight; Basophils % (A) 0 %; Eosinophils # (A) 0.2 k/uL (0-0.7); Eosinophils % (A) 2 %; HCT 28.6 % (39.0-53.0); HGB 9.4 gm/dL (13.0-17.5); Lymphocytes # (A) 0.8 k/uL (1.0-4.8); Lymphocytes % (A) 8 %; MCH 28.6 pg (25.0-35.0); MCHC 32.7 g/dL (31.0-37.0); MCV 87.3 fL (80.0-100.0); Mean Platelet Volume 7.8; Monocytes # (A) 0.4 k/uL (0-1.0); Monocytes % (A) 4 %; Neutrophils # (A) 8.4 k/uL (1.3-7.7); Neutrophils % (A) 85 %; Platelet Count 263 k/uL (150-450); RBC 3.28 m/uL (4.30-5.90); RDW 16.1 % (11.5-15.5); WBC 9.9 k/uL (3.8-10.6)
[2017-06-14 14:38] LABS: Partial Thromboplastin Time 24.3 sec (22.0-30.0); Prothrombin Time 10.2 sec (9.0-12.0)
[2017-06-14 14:40] LABS: Appearance,Urine Clear (Clear); Bacteria,Urine Rare /hpf; Bilirubin,Urine Negative (Negative); Blood,Urine Negative (Negative); Color,Urine Yellow; Glucose,Urine (UA) Negative (Negative); Hyaline Casts,Urine 3 /lpf (0-2); Ketones,Urine Negative (Negative); Leukocyte Esterase,Urine Small (Negative); Mucus,Urine Rare /hpf; Nitrite,Urine Negative (Negative); PH, Urine 5.5 (5.0-8.0); Protein,Urine 1+ (Negative); RBC,Urine 14 /hpf (0-5); Specific Gravity,Urine 1.016 (1.001-1.035); Squamous Epithelial Cell,Urine <1 /hpf (0-4); Urobilinogen,Urine <2.0 mg/dL (<2.0); WBC,Urine 6 /hpf (0-5)
[2017-06-14 14:50] LABS: Albumin 2.6 g/dL (3.5-5.0); Total Bilirubin 0.9 mg/dL (0.2-1.3); Total Protein 5.4 g/dL (6.3-8.2)
[2017-06-14 14:51] LABS: Potassium 5.9 mmol/L (3.5-5.1)
--- NOTE | 2017-06-14 15:11 | XR ---
EXAMINATION TYPE: XR chest 2V DATE OF EXAM: 06/14/2017 COMPARISON: 04/21/2014 TECHNIQUE: PA and lateral views submitted. HISTORY: Shortness of breath FINDINGS: Bilateral pleural effusions are seen. Hypertrophic and degenerative change of the spine. There is pro minence of the upper mediastinum. Underlying COPD and chronic interstitial lung disease suspected. Matson bsegmental changes left lung base most typical of atelectasis. Sclerotic lesion involving the right humerus. IMPRESSION: 1. Cardiomegaly, COPD and left basilar atelectasis favored over infiltrate. 2. Upper mediastinal prominence stable dating back to multiple exams felt to be related to tortuous v asculature. 3. Subsegmental chronic appearing consolidation or reticulation within the medial margin of the right upper lobe.
[2017-06-14 15:15] LABS: Creatine Kinase MB 2.7 ng/mL (0.0-2.4); Troponin I 0.013 ng/mL (0.000-0.034)
--- NOTE | 2017-06-14 15:15 | XR ---
2 view abdomen HISTORY: Pain, distention, constipation 2 views the abdomen submitted. No comparisons Lung bases are clear. Heart may be enlarged, size may be exaggerated by technique. There is no eviden t bowel obstruction or pneumoperitoneum. Gas-filled loops of small and large bowel are noted. Postop change noted to the hips. There are vascular calcifications within the pelvis. IMPRESSION: No acute abnormalities evident. Follow-up as indicated.
[2017-06-14] MEDS ORDERED: NALOXONE 0.4 MG/ML 1 ML VIAL IV PRN (17:05)
[2017-06-14] MEDS ORDERED: ACETAMINOPHEN TAB 325 MG TAB PO PRN (17:05)
[2017-06-14] MEDS ORDERED: BISACODYL 10 MG SUPP RECTAL PRN (17:13)
[2017-06-14] MEDS ORDERED: MAGNESIUM HYDROXIDE 2,400 MG/10 ML CUP PO PRN (17:13)
[2017-06-14 18:31] LABS: Glucose,Whole Blood 102 mg/dL (75-99)
[2017-06-14] MEDS: SYMBICORT 80-4.5 MCG INHALER INHALATION SCH (20:10)
[2017-06-14 20:32] LABS: Creatine Kinase 80 U/L (55-170)
[2017-06-14 20:46] LABS: Troponin I <0.012 ng/mL (0.000-0.034)
[2017-06-14 21:14] LABS: Creatine Kinase MB 3.3 ng/mL (0.0-2.4)
[2017-06-14 21:26] LABS: Glucose,Whole Blood 115 mg/dL (75-99)
[2017-06-14] MEDS: traMADol 50 MG TAB PO PRN (22:54)
[2017-06-14] MEDS: GABAPENTIN 100 MG CAP PO SCH (22:54)
[2017-06-14] MEDS: TAMSULOSIN 0.4 MG CAP.ER.24H PO SCH (22:54)
[2017-06-14] MEDS: AMOXICILLIN 500 MG CAP PO SCH (22:54)
[2017-06-14] MEDS: hydrALAZINE HCL 25 MG TAB PO SCH (22:54)
[2017-06-14] MEDS: SODIUM CHLORIDE 0.9% 1,000 ML IV SCH (22:55)
[2017-06-15 03:00] LABS: Anisocytosis Slight; Basophils % (A) 0 %; Eosinophils # (A) 0.2 k/uL (0-0.7); Eosinophils % (A) 3 %; HCT 28.1 % (39.0-53.0); HGB 8.7 gm/dL (13.0-17.5); Hypochromasia Slight; Lymphocytes # (A) 0.8 k/uL (1.0-4.8); Lymphocytes % (A) 12 %; MCH 27.8 pg (25.0-35.0); MCHC 31.1 g/dL (31.0-37.0); MCV 89.3 fL (80.0-100.0); Mean Platelet Volume 7.7; Monocytes # (A) 0.3 k/uL (0-1.0); Monocytes % (A) 4 %; Neutrophils # (A) 5.6 k/uL (1.3-7.7); Neutrophils % (A) 80 %; Platelet Count 248 k/uL (150-450); RBC 3.14 m/uL (4.30-5.90); WBC 7.1 k/uL (3.8-10.6)
[2017-06-15 03:07] LABS: Albumin 2.4 g/dL (3.5-5.0); Calcium 7.9 mg/dL (8.4-10.2); Potassium 4.1 mmol/L (3.5-5.1); Total Bilirubin 0.4 mg/dL (0.2-1.3); Total Protein 4.6 g/dL (6.3-8.2)
[2017-06-15 03:21] LABS: Creatine Kinase 76 U/L (55-170)
[2017-06-15 03:34] LABS: Troponin I <0.012 ng/mL (0.000-0.034)
[2017-06-15 03:35] LABS: Creatine Kinase MB 3.3 ng/mL (0.0-2.4)
[2017-06-15 05:53] LABS: Glucose,Whole Blood 99 mg/dL (75-99)
[2017-06-15] MEDS: SODIUM CHLORIDE 0.9% 1,000 ML IV SCH ×2 (06:32→20:34)
--- NOTE | 2017-06-15 07:17 | P.GSCN ---
History of Present Illness Consult date: 06/15/17 History of present illness: The patient's an 81-year-old gentleman transferred from the senior living because of altered mental status and abdominal discomfort. The patient sustained a left femur fracture approximately month ago and has been recuperating after surgery in the senior living. He was in the hospital last week for apparent urine retention. He was seen by and there is a question of urine retention. He had a catheter in. Dr. Tellez ended up doing cystoscopy and did not find the liter of urine retention that was outlined on the bladder scan. After seemed to be doing just fine but again apparently the senior living was wondering whether there were difficulties again. He is seen in the emergency room and scan for large amount of urine appeared there was draining urine out of the catheter however. He did well overnight. He made over 500 mL a urine that is clear. He does not have any significant abdominal discomfort. He does have gaseous distention. Review of Systems ROS unobtainable: due to mental status Past Medical History Past Medical History: Cancer, COPD, Diabetes Mellitus, Eye Disorder, GERD/Reflux , Hearing Disorder / Deafness, Hyperlipidemia, Hypertension, Memory Impairment, Myocardial Infarction (GA), Osteoarthritis (OA), Prostate Disorder, Renal Disease, Skin Disorder, Thyroid Disorder Additional Past Medical History / Comment(s): macular degeneration, thyroid cancer, lung cancer with radiation, left heel ulcer Last Myocardial Infarction Date:: unknown History of Any Multi-Drug Resistant Organisms: None Reported Past Surgical History: Back Surgery, Heart Catheterization With Stent, Hernia Repair, Orthopedic Surgery Additional Past Surgical History / Comment(s): Fixation of fractured left femur , b/l hip replacement Past Anesthesia/Blood Transfusion Reactions: No Reported Reaction Date of Last Stent Placement:: unknown Past Psychological History: No Psychological Hx Reported Smoking Status: Former smoker Past Alcohol Use History: None Reported Past Drug Use History: None Reported - Past Family History Father Family Medical History: Myocardial Infarction (GA) Mother Family Medical History: Cancer Medications and Allergies Home Medications Medication Instructions Recorded Confirmed Type Atorvastatin [Lipitor] 10 mg PO DAILY@0800 04/21/14 06/14/17 History Fluticasone/Salmeterol [Advair 1 puff INHALATION RT-BID@0800,2100 04/21/1406/14 History 250-50 Diskus] Metoprolol Tartrate [Lopressor] 50 mg PO DAILY@0804/21/14 06/14/17 History Sertraline [Zoloft] 50 mg PO DAILY@79904/21/14 06/14/17 History Tamsulosin [Flomax] 0.4 mg PO HS@209904/21/14 06/14/17 History amLODIPine [Norvasc] 10 mg PO DAILY@79904/21/14 06/14/17 History Aspirin EC [Ecotrin Low Dose] 81 mg PO DAILY@169911/07/16 06/14/17 History Lansoprazole [Prevacid] 30 mg PO HS@209911/07/16 06/14/17 History Latanoprost [Xalatan 0.005%] 1 drop BOTH EYES DAILY@79911/07/16 06/14/17 History Acetaminophen-Codeine 300-30mg 0.5 tab PO Q4H PRN 06/08/17 06/14/17 History [Tylenol #3] Amoxicillin 500 mg PO TID@0800,1400,199906/08/17 06/14/17 History Bisacodyl [Dulcolax] 10 mg RECTAL DAILY PRN 06/08/17 06/14/17 History Docusate [Colace] 100 mg PO BID@0800,169906/08/17 06/14/17 History Gabapentin [Neurontin] 200 mg PO HS@209906/08/17 06/14/17 History Glucerna Shake 1 can PO BID@0800,0 06/08/17 06/14/17 History Lidocaine [Lidoderm 5% Patch] 1 patch TRANSDERM DAILY@79906/08/17 06/14/17 History Magnesium Hydroxide [Milk of 2,400 mg PO DAILY PRN 06/08/17 06/14/17 History Magnesia] Na Phos,M-B/Na Phos,Di-Ba [Fleet 133 ml RECTAL ONCE PRN 06/08/17 06/14/17 History Adult] hydrALAZINE HCL 75 mg PO BID@0800,209906/08/17 06/14/17 History traMADol HCL [Ultram] 100 mg PO Q4HR PRN 06/08/17 06/14/17 History Finasteride [Proscar] 5 mg PO DAILY 06/14/17 06/14/17 History Allergies Allergy/AdvReac Type Severity Reaction Status Date / Time codeine AdvReac Nausea & Verified 06/14/17 13:28 Vomiting Surgical - Exam Vital Signs Temp Pulse Resp BP Pulse Ox 97.3 F L 51 L 20 126/59 95 06/14/17 13:14 06/14/17 13:14 06/14/17 13:14 06/14/17 13:14 06/14/17 13:14 - General well developed, well nourished, no distress - Eyes PERRL - ENT no hearing loss - Neck trachea midline - Respiratory normal expansion, normal respiratory effort - Cardiovascular Rhythm: regular - Abdomen Abdomen slightly distended but percusses consistent with some gaseous distention. The suprapubic region does not appear to be distended. There is an indwelling catheter clear urine. - Genitourinary Indwelling catheter will uncircumcised penis normal testes and scrotum - Neurologic memory loss Results - Labs 06/15/17 02:40 06/15/17 02:40 Abnormal Lab Results - Last 24 Hours (Table) 06/14/17 06/14/17 06/14/17 Range/Units 14:17 14:17 14:17 RBC 3.28 L (4.30-5.90) m/uL Hgb 9.4 L (13.0-17.5) gm/dL Hct 28.6 L (39.0-53.0) % RDW 16.1 H (11.5-15.5) % Neutrophils # 8.4 H (1.3-7.7) k/uL Lymphocytes # 0.8 L (1.0-4.8) k/uL Sodium 133 L (137-145) mmol/L Potassium 5.9 H (3.5-5.1) mmol/L Carbon Dioxide 21 L (22-30) mmol/L BUN 40 H (9-20) mg/dL Creatinine 2.10 H (0.66-1.25) mg/dL POC Glucose (mg/dL) (75-99) mg/dL Calcium 8.0 L (8.4-10.2) mg/dL ALT 15 L (21-72) U/L CK-MB (CK-2) 2.7 H* (0.0-2.4) ng/mL Total Protein 5.4 L (6.3-8.2) g/dL Albumin 2.6 L (3.5-5.0) g/dL Urine Protein (Negative) Ur Leukocyte Esterase (Negative) Urine RBC (0-5) /hpf Urine WBC (0-5) /hpf Urine Bacteria (None) /hpf Hyaline Casts (0-2) /lpf Urine Mucus (None) /hpf 06/14/17 06/14/17 06/14/17 Range/Units 14:30 18:22 20:06 RBC (4.30-5.90) m/uL Hgb (13.0-17.5) gm/dL Hct (39.0-53.0) % RDW (11.5-15.5) % Neutrophils # (1.3-7.7) k/uL Lymphocytes # (1.0-4.8) k/uL Sodium (137-145) mmol/L Potassium (3.5-5.1) mmol/L Carbon Dioxide (22-30) mmol/L BUN (9-20) mg/dL Creatinine (0.66-1.25) mg/dL POC Glucose (mg/dL) 102 H (75-99) mg/dL Calcium (8.4-10.2) mg/dL ALT (21-72) U/L CK-MB (CK-2) 3.3 H* (0.0-2.4) ng/mL Total Protein (6.3-8.2) g/dL Albumin (3.5-5.0) g/dL Urine Protein 1+ H (Negative) Ur Leukocyte Esterase Small H (Negative) Urine RBC 14 H (0-5) /hpf Urine WBC 6 H (0-5) /hpf Urine Bacteria Rare H (None) /hpf Hyaline Casts 3 H (0-2) /lpf Urine Mucus Rare H (None) /hpf 06/14/17 06/15/17 06/15/17 Range/Units 21:24 02:40 02:40 RBC 3.14 L (4.30-5.90) m/uL Hgb 8.7 L (13.0-17.5) gm/dL Hct 28.1 L (39.0-53.0) % RDW 16.0 H (11.5-15.5) % Neutrophils # (1.3-7.7) k/uL Lymphocytes # 0.8 L (1.0-4.8) k/uL Sodium (137-145) mmol/L Potassium (3.5-5.1) mmol/L Carbon Dioxide (22-30) mmol/L BUN (9-20) mg/dL Creatinine (0.66-1.25) mg/dL POC Glucose (mg/dL) 115 H (75-99) mg/dL Calcium (8.4-10.2) mg/dL ALT (21-72) U/L CK-MB (CK-2) 3.3 H* (0.0-2.4) ng/mL Total Protein (6.3-8.2) g/dL Albumin (3.5-5.0) g/dL Urine Protein (Negative) Ur Leukocyte Esterase (Negative) Urine RBC (0-5) /hpf Urine WBC (0-5) /hpf Urine Bacteria (None) /hpf Hyaline Casts (0-2) /lpf Urine Mucus (None) /hpf 06/15/17 Range/Units 02:40 RBC (4.30-5.90) m/uL Hgb (13.0-17.5) gm/dL Hct (39.0-53.0) % RDW (11.5-15.5) % Neutrophils # (1.3-7.7) k/uL Lymphocytes # (1.0-4.8) k/uL Sodium 136 L (137-145) mmol/L Potassium (3.5-5.1) mmol/L Carbon Dioxide 21 L (22-30) mmol/L BUN 34 H (9-20) mg/dL Creatinine 2.00 H (0.66-1.25) mg/dL POC Glucose (mg/dL) (75-99) mg/dL Calcium 7.9 L (8.4-10.2) mg/dL ALT (21-72) U/L CK-MB (CK-2) (0.0-2.4) ng/mL Total Protein 4.6 L (6.3-8.2) g/dL Albumin 2.4 L (3.5-5.0) g/dL Urine Protein (Negative) Ur Leukocyte Esterase (Negative) Urine RBC (0-5) /hpf Urine WBC (0-5) /hpf Urine Bacteria (None) /hpf Hyaline Casts (0-2) /lpf Urine Mucus (None) /hpf Microbiology - Last 24 Hours (Table) 06/14/17 14:30 Urine Culture - Preliminary Urine,Catheterized Diabetes panel 06/14/17 06/15/17 Range/Units 14:17 02:40 Sodium 133 L 136 L (137-145) mmol/L Potassium 5.9 H 4.1 (3.5-5.1) mmol/L Chloride 105 106 (98-107) mmol/L Carbon Dioxide 21 L 21 L (22-30) mmol/L BUN 40 H 34 H (9-20) mg/dL Creatinine 2.10 H 2.00 H (0.66-1.25) mg/dL Glucose 96 88 (74-99) mg/dL Calcium 8.0 L 7.9 L (8.4-10.2) mg/dL AST 44 21 (17-59) U/L ALT 15 L 24 (21-72) U/L Alkaline Phosphatase 75 87 (38-126) U/L Total Protein 5.4 L 4.6 L (6.3-8.2) g/dL Albumin 2.6 L 2.4 L (3.5-5.0) g/dL Calcium panel 06/14/17 06/15/17 Range/Units 14:17 02:40 Calcium 8.0 L 7.9 L (8.4-10.2) mg/dL Albumin 2.6 L 2.4 L (3.5-5.0) g/dL Pituitary panel 06/14/17 06/15/17 Range/Units 14:17 02:40 Sodium 133 L 136 L (137-145) mmol/L Potassium 5.9 H 4.1 (3.5-5.1) mmol/L Chloride 105 106 (98-107) mmol/L Carbon Dioxide 21 L 21 L (22-30) mmol/L BUN 40 H 34 H (9-20) mg/dL Creatinine 2.10 H 2.00 H (0.66-1.25) mg/dL Glucose 96 88 (74-99) mg/dL Calcium 8.0 L 7.9 L (8.4-10.2) mg/dL Adrenal panel 06/14/17 06/15/17 Range/Units 14:17 02:40 Sodium 133 L 136 L (137-145) mmol/L Potassium 5.9 H 4.1 (3.5-5.1) mmol/L Chloride 105 106 (98-107) mmol/L Carbon Dioxide 21 L 21 L (22-30) mmol/L BUN 40 H 34 H (9-20) mg/dL Creatinine 2.10 H 2.00 H (0.66-1.25) mg/dL Glucose 96 88 (74-99) mg/dL Calcium 8.0 L 7.9 L (8.4-10.2) mg/dL Total Bilirubin 0.9 0.4 (0.2-1.3) mg/dL AST 44 21 (17-59) U/L ALT 15 L 24 (21-72) U/L Alkaline Phosphatase 75 87 (38-126) U/L Total Protein 5.4 L 4.6 L (6.3-8.2) g/dL Albumin 2.6 L 2.4 L (3.5-5.0) g/dL Assessment and Plan Assessment: Impression: The patient is status post femur fracture in a senior living. There is question whether the catheter is functioning properly. It is draining over 500 mL of clear urine overnight. His bladder does not appear to be distended. I question whether what is being seen on the ultrasound is actual bowel gas Recommendations. I will irrigate the catheter. I will notify Dr. Tellez/tenzin of admission
[2017-06-15] MEDS: SYMBICORT 80-4.5 MCG INHALER INHALATION SCH ×2 (08:45→20:42)
[2017-06-15] MEDS: FINASTERIDE 5 MG TAB PO SCH (09:19)
[2017-06-15] MEDS: PANTOPRAZOLE 40 MG/10 ML VIAL IV SCH (09:19)
[2017-06-15] MEDS: LIDOCAINE 5% PATCH TOPICAL SCH (09:19)
[2017-06-15] MEDS: LATANOPROST 0.005% OPHTH DROPS 2.5 ML BTL BOTH EYES SCH (09:20)
[2017-06-15] MEDS: METOPROLOL TARTRATE 50 MG TAB PO SCH (09:20)
[2017-06-15] MEDS: DOCUSATE 100 MG CAP PO SCH ×2 (09:20→17:26)
[2017-06-15] MEDS: ATORVASTATIN 10 MG TAB PO SCH (09:20)
[2017-06-15] MEDS: hydrALAZINE HCL 25 MG TAB PO SCH (09:20)
[2017-06-15] MEDS: SERTRALINE 50 MG TAB PO SCH (09:20)
[2017-06-15] MEDS: AMOXICILLIN 500 MG CAP PO SCH (09:21)
[2017-06-15] MEDS ORDERED: NA PHOS,M-B/NA PHOS,DI-BA 133 ML ENEMA RECTAL PRN (10:53)
[2017-06-15] MEDS ORDERED: VANCOMYCIN IV PER PHARMACY 1 EACH MISC MISCELLANE PRN (10:56)
[2017-06-15] MEDS ORDERED: VANCOMYCIN 1,750 MG in SODIUM CHLORIDE 0.9% 250 ML IVPB STA (10:59)
[2017-06-15] MEDS ORDERED: NA PHOS,M-B/NA PHOS,DI-BA 133 ML ENEMA RECTAL ONE (11:00)
[2017-06-15 11:27] LABS: Glucose,Whole Blood 119 mg/dL (75-99)
[2017-06-15] MEDS: traMADol 50 MG TAB PO PRN ×2 (12:16→22:18)
--- NOTE | 2017-06-15 12:49 | P.PN ---
Progress Note - Text Dr Tellez had problems with irrigation He couldnt explain the issue of large "pvr" and normal cysto I will order a ct scan to see if there are any obvious issues in the pelvis
--- NOTE | 2017-06-15 12:54 | XR ---
EXAMINATION TYPE: XR foot complete LT DATE OF EXAM: 06/15/2017 COMPARISON: NONE HISTORY: Heel ulcer TECHNIQUE: Three-view left foot FINDINGS: Hammertoes are evident. Distal interphalangeal joint spaces are narrowed. Calcaneal heel sp urs are present. There is soft tissue abnormality along the posterior heel. The adjacent calcaneus appears normal with out cortical erosion. Vascular calcification is noted. IMPRESSION: 1. Soft tissue abnormality posterior heel. 2. No radiographic changes to suggest osteomyelitis.
--- NOTE | 2017-06-15 13:59 | CT ---
EXAMINATION TYPE: CT abdomen pelvis wo con DATE OF EXAM: 06/15/2017 COMPARISON: NONE HISTORY: 81-year-old male Acute Urinary Retention CT DLP: 1400 mGycm. Automated exposure control for dose reduction was used. TECHNIQUE: Contiguous axial scanning of the abdomen and pelvis without IV contrast. Coronal and sagit margot reconstructions performed. FINDINGS: Heart normal size with trace basilar pericardial effusion. Moderate size hiatal hernia. There is some irregularity at the GE junction, axial image 13 which prob ably relates to mucosal redundancy but should be correlated clinically as to the need for direct visu alization. Small right pleural effusion and trace left effusion. Cholelithiasis and mildly hydropic gallbladder measuring 4.7 cm wide. No surrounding inflammatory erica nge. Noncontrast appearance of the liver, left adrenal gland, spleen with hilar splenule, pancreas shows n o gross abnormal body. Numerous left-sided renal cysts varying density. No hydronephrosis on the left. Extensive cystic changes involving the right kidney similar to the partially visualized portions of t he right kidney on 01/24/2017 CT chest. On the right, very large renal cysts are present, largest extending from the lower pole measuring up to 18.7 cm. Upper pole cyst measures up to 14.1 cm. Central cysts measure up to 8.9 cm. Unable to clearly identify the right ureter. A dilated mid to distal right ureter is not identified t makenna there is limitation in assessment due to artifact from patient's bilateral total hip arthroplas ties. Moderate arthroscopic calcifications throughout the abdominal aorta and iliac arteries.. No dilated small bowel, free fluid, or free air. Moderate stool within the right hemicolon. In addition, there is moderate circumferential wall thicke whitley of the distal sigmoid and rectum with surrounding moderate inflammatory fat stranding and tiny f oci of adjacent extraluminal air, refer to axial image 63. Scattered tiny foci of free air present al jamie the left side of the omentum. Presacral edema is noted. No abscess formation. There is mild left-sided diverticulosis but the inflammation does not appear to be centered along the diverticular change. Strange catheter is present decompressing the bladder. Metal hardware artifact limits visualization. Bones: Bilateral total hip arthroplasties. Degenerative changes throughout the lumbar spine with grad e 1 anterolisthesis of L5-S1. Grade 1 retrolisthesis at L1-L2. IMPRESSION: 1. Colitis involving the distal sigmoid and rectum with moderate edematous wall thickening and surrou nding inflammatory edema. Small foci of free air are present along the inflamed segment with addition al tiny foci of free air in the left omentum suggesting secondary perforation. 2. Correlate for ischemic, infectious, or inflammatory causes of colitis. 3. Very large renal cysts on the right measuring up to 18.7 cm. 4. Bladder decompressed by Strange catheter. Visualization is limited due to metal hardware artifact fr om the patient's hip replacements. 5. Cholelithiasis and mildly hydropic gallbladder. Findings probably related to fasting state; if the re is right upper quadrant pain or concern for early acute cholecystitis, follow-up ultrasound or HID A scan. 6. Moderate-sized hiatal hernia. There is some irregularity of the GE junction suspected to be on the basis of mucosal redundancy. If indicated, direct visualization can be performed. Critical findings called to nurse Vasquez on 6SEL at 1:55 PM.
[2017-06-15] MEDS: COLLAGENASE 250 UNIT/GM OINTMENT 30 GM TUBE TOPICAL SCH (14:00)
[2017-06-15] MEDS ORDERED: LEVOFLOXACIN 750MG-D5W PMX 750 MG in DEXTROSE/WATER 1 150ML.BAG IVPB SCH (14:30)
--- NOTE | 2017-06-15 14:32 | P.HPIM ---
History of Present Illness H&P Date: 06/15/17 Chief Complaint: abdominal pain 81 years old male patient of Dr. Baez with past medical history of cancer status post thyroidectomy history of lung cancer status post radiation, history of COPD, diabetes, hyperlipidemia, hypertension, osteoarthritis, chronic kidney disease stage III presents in with altered mental status, abdominal discomfort for the past 2 days. Patient fractured his left femur status post intramedullary janessa on 05/06/2017 he was treated at [facility] at [facility]. Strange catheter was placed during that admission for urinary retention and patient was discharged to detention. Patient continues to have problems with his Strange catheter including decreased urine output with urine retention cough more than a liter outlined on bladder scan despite having a Strange catheter. Patient was seen by who performed a cystoscopy with no urine output despite showing a liter on the bladder scan. Patient was sent to the ER from detention yesterday with complaints of abdominal discomfort associated with possible urinary retention as bladder scan did show more than 600. In the bladder in spite of having a Strange catheter in. Patient was examined by Dr. Solis this morning who felt the patient's catheter is functioning properly as detailed 5 mg the left ear. Overnight. On my evaluation this morning patient is hard of hearing, does document increased abdominal pain associated with pain in his left heel. Patient denies any fever , chills, change in bowel habits.he does feel constipated and had no bowel movement for the past 3 days . CBC suggestive WBC of 7.1, hemoglobin 8.7, creatinine 2.0, BUN/creatinine 34 which is patient's baseline, troponin 2 negative, increased CRP 139. Urinalysis suggestive of 1+ urine protein, leukocyte esterase, history of 14, WBC 6 with some hyaline cast. 4. Congestive soft tissue component to the posterior heel but no radial graphic changes suggestive of osteomyelitis. Significant findings also included hammertoes, osteoarthritis changes with calcaneal heel spurs. CT abdomen was positivefor acute colitis including the distal sigmoid and rectum with quadriplegia status wall thickening and surrounding his elevated d-dimer. Small foci of free air present along the inferior segment with free air in the left omentum suggesting secondary perforation. Large renal cyst present in the right. Cholelithiasis present. Moderate sized hiatal hernia. stat consult for surgery is placed. Patient initiated on levofloxacin adjusted to renal dosing along with Flagyl. Patient has high CRP concerning for left heel cellulitis, patient initiated on vancomycin. Dulcolax suppository ordered. Review of Systems Constitutional: Denies chills, Denies fever, Denies lethargy, Denies malaise, Denies poor appetite, Denies weakness, Denies weight loss Eyes: denies decreased vision, denies diplopia, denies discharge, denies pain Ears: decreased hearing Ears, nose, mouth and throat: Denies dental pain, Denies headache, Denies nasal discharge, Denies nose pain Cardiovascular: Endorses chest pain, endorses decreased exercise tolerance, Denies edema, Denies high blood pressure, Denies irregular heart beat, Denies palpitations, Denies paroxysmal nocturnal dyspnea, Denies rapid heart beat, Denies shortness of breath Respiratory: Denies congestion, Denies cough, Denies cough with sputum, Denies dyspnea, Denies home oxygen, Denies wheezing Gastrointestinal: Endorses abdominal pain, endorses change in bowel habits. Denies coffee ground emesis, Denies early satiety, Denies excessive gas, Denies heartburn, Denies hematemesis, Denies hematochezia, Denies loss of appetite, Denies nausea, Denies vomiting Genitourinary: Denies dysuria, Denies flank pain, Denies kidney stones, Denies menorrhagia, Denies urgency, Denies urinary frequency Musculoskeletal: Denies gait dysfunction, Denies limitation of motion, Denies morning stiffness, Denies muscle cramps endorses pain in the left heel Integumentary: Denies rash, Denies wounds, Denies brittle nails, Denies change in hair/nails, Denies darkening of skin Neurological: Denies balance difficulties, Denies change in speech, Denies double vision, Denies gait dysfunction, Denies loss of vision, Denies motor disturbance, Denies numbness, Denies paralysis, Denies paresthesias, Denies seizures Psychiatric: Denies anxiety, Denies depression Endocrine: Denies excessive sweating, Denies excessive thirst, Denies high blood sugars, Denies palpitations Hematologic/Lymphatic: Denies easy bruising, Denies lymphadenopathy Past Medical History Past Medical History: Cancer, COPD, Eye Disorder, GERD/Reflux, Hearing Disorder / Deafness, Hyperlipidemia, Hypertension, Memory Impairment, Myocardial Infarction (CO), Osteoarthritis (OA), Prostate Disorder, Renal Disease, Skin Disorder, Thyroid Disorder Additional Past Medical History / Comment(s): macular degeneration, thyroid cancer, lung cancer with radiation, left heel ulcer Last Myocardial Infarction Date:: unknown History of Any Multi-Drug Resistant Organisms: None Reported Past Surgical History: Back Surgery, Heart Catheterization With Stent, Hernia Repair, Orthopedic Surgery Additional Past Surgical History / Comment(s): Fixation of fractured left femur , b/l hip replacement Past Anesthesia/Blood Transfusion Reactions: No Reported Reaction Date of Last Stent Placement:: unknown Past Psychological History: No Psychological Hx Reported Smoking Status: Former smoker Past Alcohol Use History: None Reported Past Drug Use History: None Reported - Past Family History Father Family Medical History: Myocardial Infarction (CO) Mother Family Medical History: Cancer Medications and Allergies Home Medications Medication Instructions Recorded Confirmed Type Atorvastatin [Lipitor] 10 mg PO DAILY@0804/21/14 06/14/17 History Fluticasone/Salmeterol [Advair 1 puff INHALATION RT-BID@0800,209904/21/1406/14 History 250-50 Diskus] Metoprolol Tartrate [Lopressor] 50 mg PO DAILY@0804/21/14 06/14/17 History Sertraline [Zoloft] 50 mg PO DAILY@0804/21/14 06/14/17 History Tamsulosin [Flomax] 0.4 mg PO HS@209904/21/14 06/14/17 History amLODIPine [Norvasc] 10 mg PO DAILY@0804/21/14 06/14/17 History Aspirin EC [Ecotrin Low Dose] 81 mg PO DAILY@1700 11/07/16 06/14/17 History Lansoprazole [Prevacid] 30 mg PO HS@209911/07/16 06/14/17 History Latanoprost [Xalatan 0.005%] 1 drop BOTH EYES DAILY@79911/07/16 06/14/17 History Acetaminophen-Codeine 300-30mg 0.5 tab PO Q4H PRN 06/08/17 06/14/17 History [Tylenol #3] Amoxicillin 500 mg PO TID@0800,1400,2000 06/08/17 06/14/17 History Bisacodyl [Dulcolax] 10 mg RECTAL DAILY PRN 06/08/17 06/14/17 History Docusate [Colace] 100 mg PO BID@0800,1700 06/08/17 06/14/17 History Gabapentin [Neurontin] 200 mg PO HS@2100 06/08/17 06/14/17 History Glucerna Shake 1 can PO BID@0800,1700 06/08/17 06/14/17 History Lidocaine [Lidoderm 5% Patch] 1 patch TRANSDERM DAILY@0800 06/08/17 06/14/17 History Magnesium Hydroxide [Milk of 2,400 mg PO DAILY PRN 06/08/17 06/14/17 History Magnesia] Na Phos,M-B/Na Phos,Di-Ba [Fleet 133 ml RECTAL ONCE PRN 06/08/17 06/14/17 History Adult] hydrALAZINE HCL 75 mg PO BID@0800,2100 06/08/17 06/14/17 History traMADol HCL [Ultram] 100 mg PO Q4HR PRN 06/08/17 06/14/17 History Finasteride [Proscar] 5 mg PO DAILY 06/14/17 06/14/17 History Allergies Allergy/AdvReac Type Severity Reaction Status Date / Time codeine AdvReac Nausea & Verified 06/14/17 13:28 Vomiting Physical Exam Vitals: Vital Signs Temp Pulse Pulse Resp BP BP Pulse Ox 06/15/17 11:59 96.8 F L 58 L 20 119/56 92 L 06/15/17 08:00 97 F L 82 20 114/63 94 L 06/15/17 04:00 97.8 F 62 18 112/58 92 L 06/15/17 03:58 20 06/15/17 00:00 97.8 F 61 18 125/58 93 L 06/14/17 18:24 97.9 F 59 L 20 163/72 96 06/14/17 17:50 98.0 F 57 L 16 129/60 93 L 06/14/17 17:16 58 L 20 146/65 95 06/14/17 14:19 52 L 20 133/65 98 Intake and Output 06/14/17 06/15/17 06/15/17 22:59 06:59 14:59 Intake Total 560 240 Output Total 500 Balance 60 240 Intake: IV 560 Sodium Chloride 0.9% 1, 560 000 ml @ 80 mls/hr IV . [id number] [facility] Rx#:[id number] Oral 240 Output: Urine 500 Uretheral (Strange) 500 Other: Voiding Method Indwelling Catheter Indwelling Catheter Weight 87.997 kg 85.5 kg 85.5 kg Patient Weight 06/16/17 06:59 Weight 85.5 kg - Constitutional General appearance: cooperative, patient in moderate acute distress, - EENT Eyes: anicteric sclerae, PERRLA, normal appearance ENT: Hard of hearing - Neck Neck: no lymphadenopathy, normal ROM, no other, no rigidity, no stridor, no thyromegaly - Respiratory Respiratory: bilateral: CTA, negative: diminished, dullness, rales, rhonchi - Cardiovascular Rhythm: regular Heart sounds: normal: S1, S2 Abnormal Heart Sounds: no systolic murmur, no diastolic murmur, no rub, no S3 Gallop, no S4 Gallop, no click, no other - Gastrointestinal General gastrointestinal: normal bowel sounds, soft, distended abdomen normal bowel sounds heard. Tender to palpate in the lower quadrant. - Integumentary Integumentary: no rash, left leg ulcer with purulent drainage with surrounding erythema or any inflammation around 5 cm to 2 cm in size. - Neurologic Neurologic: CNII-XII intact - Musculoskeletal Musculoskeletal: strength equal bilaterally - Psychiatric Psychiatric: A&O x's 3, appropriate affect Results CBC & Chem 7: 06/15/17 02:40 06/15/17 02:40 Labs: Abnormal Lab Results - Last 24 Hours (Table) 06/14/17 06/14/17 06/14/17 Range/Units 14:17 14:17 14:17 RBC 3.28 L (4.30-5.90) m/uL Hgb 9.4 L (13.0-17.5) gm/dL Hct 28.6 L (39.0-53.0) % RDW 16.1 H (11.5-15.5) % Neutrophils # 8.4 H (1.3-7.7) k/uL Lymphocytes # 0.8 L (1.0-4.8) k/uL ESR (0-15) mm/hr Sodium 133 L (137-145) mmol/L Potassium 5.9 H (3.5-5.1) mmol/L Carbon Dioxide 21 L (22-30) mmol/L BUN 40 H (9-20) mg/dL Creatinine 2.10 H (0.66-1.25) mg/dL POC Glucose (mg/dL) (75-99) mg/dL Calcium 8.0 L (8.4-10.2) mg/dL ALT 15 L (21-72) U/L CK-MB (CK-2) 2.7 H* (0.0-2.4) ng/mL C-Reactive Protein (<10.0) mg/L Total Protein 5.4 L (6.3-8.2) g/dL Albumin 2.6 L (3.5-5.0) g/dL Urine Protein (Negative) Ur Leukocyte Esterase (Negative) Urine RBC (0-5) /hpf Urine WBC (0-5) /hpf Urine Bacteria (None) /hpf Hyaline Casts (0-2) /lpf Urine Mucus (None) /hpf 06/14/17 06/14/17 06/14/17 Range/Units 14:30 18:22 20:06 RBC (4.30-5.90) m/uL Hgb (13.0-17.5) gm/dL Hct (39.0-53.0) % RDW (11.5-15.5) % Neutrophils # (1.3-7.7) k/uL Lymphocytes # (1.0-4.8) k/uL ESR (0-15) mm/hr Sodium (137-145) mmol/L Potassium (3.5-5.1) mmol/L Carbon Dioxide (22-30) mmol/L BUN (9-20) mg/dL Creatinine (0.66-1.25) mg/dL POC Glucose (mg/dL) 102 H (75-99) mg/dL Calcium (8.4-10.2) mg/dL ALT (21-72) U/L CK-MB (CK-2) 3.3 H* (0.0-2.4) ng/mL C-Reactive Protein (<10.0) mg/L Total Protein (6.3-8.2) g/dL Albumin (3.5-5.0) g/dL Urine Protein 1+ H (Negative) Ur Leukocyte Esterase Small H (Negative) Urine RBC 14 H (0-5) /hpf Urine WBC 6 H (0-5) /hpf Urine Bacteria Rare H (None) /hpf Hyaline Casts 3 H (0-2) /lpf Urine Mucus Rare H (None) /hpf 06/14/17 06/15/17 06/15/17 Range/Units 21:24 02:40 02:40 RBC 3.14 L (4.30-5.90) m/uL Hgb 8.7 L (13.0-17.5) gm/dL Hct 28.1 L (39.0-53.0) % RDW 16.0 H (11.5-15.5) % Neutrophils # (1.3-7.7) k/uL Lymphocytes # 0.8 L (1.0-4.8) k/uL ESR (0-15) mm/hr Sodium (137-145) mmol/L Potassium (3.5-5.1) mmol/L Carbon Dioxide (22-30) mmol/L BUN (9-20) mg/dL Creatinine (0.66-1.25) mg/dL POC Glucose (mg/dL) 115 H (75-99) mg/dL Calcium (8.4-10.2) mg/dL ALT (21-72) U/L CK-MB (CK-2) 3.3 H* (0.0-2.4) ng/mL C-Reactive Protein (<10.0) mg/L Total Protein (6.3-8.2) g/dL Albumin (3.5-5.0) g/dL Urine Protein (Negative) Ur Leukocyte Esterase (Negative) Urine RBC (0-5) /hpf Urine WBC (0-5) /hpf Urine Bacteria (None) /hpf Hyaline Casts (0-2) /lpf Urine Mucus (None) /hpf 06/15/17 06/15/17 06/15/17 Range/Units 02:40 02:40 02:40 RBC (4.30-5.90) m/uL Hgb (13.0-17.5) gm/dL Hct (39.0-53.0) % RDW (11.5-15.5) % Neutrophils # (1.3-7.7) k/uL Lymphocytes # (1.0-4.8) k/uL ESR 22 H (0-15) mm/hr Sodium 136 L (137-145) mmol/L Potassium (3.5-5.1) mmol/L Carbon Dioxide 21 L (22-30) mmol/L BUN 34 H (9-20) mg/dL Creatinine 2.00 H (0.66-1.25) mg/dL POC Glucose (mg/dL) (75-99) mg/dL Calcium 7.9 L (8.4-10.2) mg/dL ALT (21-72) U/L CK-MB (CK-2) (0.0-2.4) ng/mL C-Reactive Protein 139.9 H (<10.0) mg/L Total Protein 4.6 L (6.3-8.2) g/dL Albumin 2.4 L (3.5-5.0) g/dL Urine Protein (Negative) Ur Leukocyte Esterase (Negative) Urine RBC (0-5) /hpf Urine WBC (0-5) /hpf Urine Bacteria (None) /hpf Hyaline Casts (0-2) /lpf Urine Mucus (None) /hpf 06/15/17 Range/Units 11:21 RBC (4.30-5.90) m/uL Hgb (13.0-17.5) gm/dL Hct (39.0-53.0) % RDW (11.5-15.5) % Neutrophils # (1.3-7.7) k/uL Lymphocytes # (1.0-4.8) k/uL ESR (0-15) mm/hr Sodium (137-145) mmol/L Potassium (3.5-5.1) mmol/L Carbon Dioxide (22-30) mmol/L BUN (9-20) mg/dL Creatinine (0.66-1.25) mg/dL POC Glucose (mg/dL) 119 H (75-99) mg/dL Calcium (8.4-10.2) mg/dL ALT (21-72) U/L CK-MB (CK-2) (0.0-2.4) ng/mL C-Reactive Protein (<10.0) mg/L Total Protein (6.3-8.2) g/dL Albumin (3.5-5.0) g/dL Urine Protein (Negative) Ur Leukocyte Esterase (Negative) Urine RBC (0-5) /hpf Urine WBC (0-5) /hpf Urine Bacteria (None) /hpf Hyaline Casts (0-2) /lpf Urine Mucus (None) /hpf Microbiology - Last 24 Hours (Table) 06/14/17 14:30 Urine Culture - Preliminary Urine,Catheterized Thrombosis Risk Factor Assmnt - DVT/VTE Prophylaxis DVT/VTE Prophylaxis: Mechanical Prophylaxis ordered - Choose All That Apply Any of the Below Risk Factors Present?: Yes Each Factor Represents 1 point: Abnormal pulmonary function (COPD) Each Risk Factor Represents 2 Points: Major surgery, Patient confined to bed Each Risk Factor Represents 3 Points: Age 75 years or older Each Risk Factor Represents 5 Points: Hip, pelvis, or leg fracture (< 1 month) Thrombosis Risk Factor Assessment Total Risk Factor Score: 13 Thrombosis Risk Factor Assessment Level: High Risk Assessment and Plan Plan: #1 acute abdominal pain secondary to left-sided colitis, with possible perforation . Continue levofloxacin and Flagyl. Continue IV fluids at 80 mL per hour. Lactic acid ordered. Surgery consult placed, pending evaluation . Patient condition is guarded. Dulcolax suppository given. Ordered for fleet edema given. #2 left heel ulcers concern for cellulitis Feet is negative for osteomyelitis but does suggest posterior spell. She'll. There is concern for infection. Elevated CRP 139.[address] Laws consulted. Patient initiated on vancomycin #3 urinary retention. Continue Strange catheter. It is possible that bladder scan was reporting bowel gas as urine. #4 history of thyroid cancer status post thyroidectomy patient is not on levothyroxine. TSH ordered #5 lung cancer status post radiation, stable. Not requiring any oxygen at this point #6 acute kidney injury likely prerenal on chronic kidney disease stage III baseline creatinine 2. Patient appears dehydrated. Continue fluids. Nephrology consulted #7 history of hyperlipidemia #8 history of hypertension continue hydralazine 75 twice a day, Norvasc 10 mg daily #9 history of myocardial infarction status post cardiac stent not known what year. Patient is unable to provide any history. Hold aspirin for possible surgery. Continue atorvastatin 10 mg daily, metoprolol 50 mg daily #10 COPD continue Advair 1 puff twice a day. Continue Duoneb as neneded #11 GERD/reflux with hiatal hernia moderate size continue lansoprazole 30 mg daily at bedtime #12 acute chest pain troponin [address] or T-wave changes on the EKG. CK slightly elevated stop echo ordered. #13 DVT prophylaxis continue SCDs. Hold heparin #14 GI prophylaxis continue lansoprazole 30 mg daily #15 patient is a full code
--- NOTE | 2017-06-15 15:06 | CONS ---
CONSULTATION DATE OF CONSULTATION: 06/15/2017 HISTORY OF PRESENT ILLNESS: Patient is an 81-year-old male who was admitted to the hospital with complaints of abdominal pain. The patient was recently hospitalized after a fall and had left femur surgery. He was found to have significant urine retention and currently has an indwelling Strange catheter. The patient has been evaluated by Urology. The serum creatinine on admission was 2.0 mg/dL. It is about the same at 2.1 mg/dL. It is about the same today. Review of previous labs shows a creatinine of about 1.7 and 1.8 mg/dL in September of 2016. Currently, patient is also maintained on IV fluids at 80 mL an hour. He denies any chest pain, no shortness of breath. No nausea or vomiting. Patient denies use of any nonsteroidal anti-inflammatory agents and his blood pressures have not been significantly low, although systolic has been around 112-119 mmHg. PAST MEDICAL HISTORY: Type 2 diabetes, hyperlipidemia, hypertension, hypothyroidism, coronary artery disease with history of cardiac catheterization and coronary stent placement, history of fall, looks like the patient also has chronic kidney disease and issues with urine retention after his recent surgery. Surgical history cardiac catheterization, hernia repair, lung cancer, thyroid cancer, macular degeneration. SOCIAL HISTORY: Patient is a former smoker. No history of drug abuse or alcohol abuse. PAST SURGICAL HISTORY: We have thyroidectomy, bilateral hip arthroplasties. On examination, patient is currently comfortable. He is awake. He is not in any acute distress. Blood pressure is 119/56, heart rate 58 per minute. He is afebrile. Examination of the, heart S1, S2. Examination of the lungs, bilateral breath sounds are heard. Abdomen is soft, nontender, nondistended. Examination of the lower extremities shows no significant edema. 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 Patient moving all 4 extremities. LABS: Show sodium 136, potassium 4.1, BUN 34, serum creatinine 2.0, hemoglobin 8.7 g/dL. ASSESSMENT: 1. Chronic kidney disease, NKF stage III with baseline creatinine about 1.7 to 1.8 mg/dL most likely secondary to nephrosclerosis. Abdominal CAT scan shows large renal cyst, particularly in the right kidney; however, there are bilateral renal cysts. 2. Anemia with no active bleeding noted. Rule out iron deficiency. 3. Rule out diabetic nephropathy. Patient is currently not on any medications for diabetes. His blood sugars have not been elevated. PLAN: Continue IV fluids. Continue indwelling Strange catheter. Repeat labs in a.m. Consult General Surgery regarding the abdominal CT findings, possible perforation and colitis. Continue with the Proscar as well. Thank you for this consultation. Will continue to follow the patient with you during his hospitalization. MMODL / IJN: [id number] /
[2017-06-15 16:04] LABS: T4, Free (Free Thyroxine) <0.07 ng/dL (0.78-2.19)
[2017-06-15] MEDS: metroNIDAZOLE-NS PMX 500 MG in SALINE 1 100ML.BAG IVPB SCH (16:38)
[2017-06-15 16:52] LABS: Glucose,Whole Blood 117 mg/dL (75-99)
[2017-06-15] MEDS ORDERED: NON-FORMULARY DRUG (Glucerna Shake 1 CAN) PO SCH (17:00)
[2017-06-15] MEDS: ASPIRIN 81 MG PO SCH (17:26)
--- NOTE | 2017-06-15 17:38 | ECHOF ---
Referral Reason:chest pain MEASUREMENTS -------- HEIGHT: 165.1 cm WEIGHT: 85.3 kg BP: 119/56 RVIDd: 3.7 cm (< 3.3) IVSd: 1.2 cm (0.6 - 1.1) LVIDd: 5.6 cm (3.9 - 5.3) LVPWd: 1.2 cm (0.6 - 1.1) IVSs: 1.4 cm LVIDs: 2.7 cm LVPWs: 1.5 cm LAESV Index (A-L): 28.91 ml/m Ao Diam: 3.4 cm (2.0 - 3.7) AV Cusp: 2.1 cm (1.5 - 2.6) LA Diam: 3.7 cm (2.7 - 3.8) EPSS: 0.4 cm MV E Jai: 0.73 m/s MV DecT: 321 ms MV A Jai: 0.87 m/s MV E/A Ratio: 0.84 RAP: 5.00 mmHg RVSP: 24.25 mmHg MV EF SLOPE: 123.53 mm/s (70 - 150) MV EXCURSION: 1.99 cm (> 18.000) FINDINGS -------- Resting bradycardia (HR<60bpm). This was a technically adequate study. The left ventricular size is normal. There is mild concentric left ventricular hypertrophy. Overa ll left ventricular systolic function is normal with, an EF between 55 - 60 %. The right ventricle is mildly enlarged. Normal LA size by volume 22+/-6 ml/m2. The right atrium is normal in size. There is mild aortic valve sclerosis. Trace to mild aortic regurgitation. There is no evidence of aortic stenosis. The mitral valve leaflets are mildly thickened. There is trace to mild mitral regurgitation. Trace tricuspid regurgitation present. Right ventricular systolic pressure is normal at < 35 mmHg. There is no evidence of pulmonary hypertension. The pulmonic valve was not well visualized. The aortic root size is normal. Normal inferior vena cava with normal inspiratory collapse consistent with estimated right atrial pre ssure of 5 mmHg. There is no pericardial effusion. CONCLUSIONS -------- 1. Resting bradycardia (HR<60bpm). 2. This was a technically adequate study. 3. The left ventricular size is normal. 4. There is mild concentric left ventricular hypertrophy. 5. Overall left ventricular systolic function is normal with, an EF between 55 - 60 %. 6. The right ventricle is mildly enlarged. 7. Normal LA size by volume 22+/-6 ml/m2. 8. There is mild aortic valve sclerosis. 9. Trace to mild aortic regurgitation. 10. The mitral valve leaflets are mildly thickened. 11. There is trace to mild mitral regurgitation. 12. Trace tricuspid regurgitation present. 13. Right ventricular systolic pressure is normal at < 35 mmHg. 14. There is no evidence of pulmonary hypertension. 15. The pulmonic valve was not well visualized. 16. The aortic root size is normal. 17. There is no pericardial effusion. CHECKOUT SUPERVISOR: Branden Carson RDCS
[2017-06-15] MEDS ORDERED: BISACODYL 10 MG SUPP RECTAL STA (17:45)
[2017-06-15 20:21] LABS: Iron Saturation 7.26 (15.00-50.00)
[2017-06-15 20:56] LABS: Glucose,Whole Blood 107 mg/dL (75-99)
[2017-06-15] MEDS ORDERED: NON-FORMULARY DRUG (Lansoprazole [Prevacid] 30 MG) PO SCH (21:00)
[2017-06-15] MEDS: cefTRIAXone IN SWFI 2,000 MG/20 ML SYRINGE IVP SCH (22:40)
--- NOTE | 2017-06-15 23:49 | CONS ---
CONSULTATION DATE OF SERVICE: 06/15/2017 REASON FOR CONSULTATION: 1. Left heel pressure ulcer and cellulitis. 2. Colitis with perforation. HISTORY OF PRESENT ILLNESS: The patient is an 81-year-old male with a past medical history significant for left femoral fracture, status post operative repair about a month ago. The patient apparently seemed to have a problem with urine retention, for which a Strange catheter was been placed, and the patient has been undergoing rehabilitation at a local intermediate. Apparently the patient seemed to have some problem with abdominal pain with concern about possible urinary retention, for which the patient was evaluated at this facility on 06/12/2017. The patient did have a Strange catheter replaced and did have cystoscopy and was subsequently transferred back to the intermediate. However, the patient seemed to be complaining of more abdominal pain more recently in the lower abdominal area. Unfortunately he is unable to quantify it any further. He had a bladder scan done at the intermediate that showed high residual. Subsequently the patient was sent back to the [facility] ER for further evaluation of the same. The patient was evaluated by Dr. Solis, who ordered bladder irrigation; apparently it could not be irrigated properly. Hence a CT of abdomen and pelvis was ordered which did reveal that the bladder was collapsed with the catheter in, with the additional finding of moderate circumferential wall thickening of the distal sigmoid and rectum with surrounding moderate inflammatory fat stranding and tiny foci of adjacent extraluminal air with concern about perforated bowel but no abscess formation. Patient was started on Levaquin and Flagyl. In addition, patient was noted to have a painful sore to his left heel area with slough tissue and concern about possible cellulitis. He was started on vancomycin. Infectious Disease was consulted for further recommendations regarding antibiotic therapy. Most of this information has been obtained from review of the chart, as the patient himself is not a very good historian. He does complain of pain in his left heel area; however, for how long he was unable to tell me and was not able to quantify it any further. He did have some dry dressing applied to the heel and a heel protector. No nausea or vomiting has been noticed. No high-grade fever. His white count was not elevated. He did have x-rays of the left foot that did show some soft tissue swelling but no evidence of any bony changes. Both of these x-rays and the CT were reviewed with radiologist Dr. Lafleur. REVIEW OF SYSTEMS: Review of systems could not be reliably obtained, though the positive points have been mentioned in the HPI. PAST MEDICAL HISTORY: 1. COPD. 2. Hypertension. 3. Hyperlipidemia. 4. Coronary artery disease. 5. Osteoarthritis .. 6. Benign prostatic hypertrophy. 7. Renal insufficiency. 8. Hypothyroidism. 9. Left hip fracture. PAST SURGICAL HISTORY: 1. PTCA with stent placement. 2. Hernia repair. 3. Back surgery. 4. Left hip fracture repair. 5. Bilateral hip replacement. SOCIAL HISTORY: Remote history of smoking. No drinking or drug use. Currently a intermediate resident. FAMILY HISTORY: Father with history of [place]. Mother with history of cancer. ALLERGIES: CODEINE. CURRENT MEDICATIONS: 1. Tylenol. 2. Norvasc. 3. Aspirin. 4. Lipitor. 5. Dulcolax. 6. Symbicort. 7. Levaquin. 8. Proscar. 9. Neurontin. 10.Hydralazine. 11.Lidocaine. 12.Milk of magnesia. 13.Lopressor. 14.Flagyl. 15.Narcan. 16.Protonix. 17.Zoloft. 18.Flomax. 19.Ultram. 20.Vancomycin, Pharmacy to dose. PHYSICAL EXAMINATION: Blood pressure 112/67 with a pulse of 60, temperature of 98. He is 91% on 2 L nasal cannula. General description is an elderly male lying in bed in no distress. No tachypnea or accessory muscle of respiration use. HEENT examination shows slight pallor. No scleral icterus. Oral mucosa membrane is dry. No pharyngeal erythema or thrush. NECK: Trachea is central. No thyromegaly. LUNGS: Unlabored breathing. Clear to auscultation anteriorly. No wheeze or crackle. HEART: S1, S2. Regular rate and rhythm. ABDOMEN: Soft. He is tender in the lower quadrant area. There is no guarding or rigidity. No organomegaly. EXTREMITIES: No edema of feet. Examination of the left heel shows he did have a stage III pressure ulcer with slough tissue at the base. There was no surrounding swelling or redness or any foul-smelling drainage. Neurologically patient is awake, alert, oriented x2. Orientation could not be determined. No signs of meningeal irritation. LABS: Hemoglobin 8.7, white count of 7.1. BUN of 34, creatinine 2.0. Electrolytes have been normal. Lactic acid is 1.1. Urine with small leukocyte esterases with 6 WBCs. Cultures are currently pending. DIAGNOSTIC IMPRESSION AND PLAN: 1. Patient with left heel pressure ulcer, stage III, with slough tissue at the base but no significant surrounding cellulitis. Clinically doubt significant infection of the left heel. Would recommend local wound care. The patient did have borderline kidney function and a high risk of nephrotoxicity from vancomycin. Hence this should be avoided at all costs, especially when I do not see specific need for it. 2. Patient with likely sigmoid diverticulitis with microperforation but no drainable abscess. The likely organism Gram-negative both aerobes and anaerobes. PLAN: 1. Discontinue the vancomycin. 2. Recommend local wound care to the left heel with Santyl followed by moist dressing along with a heel protector, with the dressing to be changed daily. 3. Will keep the patient on Flagyl 500 mg IV q.8 hours and will add Rocephin 2 grams daily to cover for the Gram-negative anaerobes and discontinue Levaquin. 4. Depending upon his clinical response as well as cultures, will adjust the medication further if needed. Thank you for this consultation. Will follow this patient along with you. MMODL / IJN: [id number] /
[2017-06-16] MEDS: metroNIDAZOLE-NS PMX 500 MG in SALINE 1 100ML.BAG IVPB SCH ×4 (00:17→23:07)
[2017-06-16] MEDS: GABAPENTIN 100 MG CAP PO SCH ×2 (00:22→20:45)
[2017-06-16] MEDS: TAMSULOSIN 0.4 MG CAP.ER.24H PO SCH ×2 (00:23→20:45)
[2017-06-16] MEDS: hydrALAZINE HCL 25 MG TAB PO SCH ×3 (00:23→20:45)
[2017-06-16 05:46] LABS: Glucose,Whole Blood 86 mg/dL (75-99)
[2017-06-16] MEDS: SODIUM CHLORIDE 0.9% 1,000 ML IV SCH (06:49)
[2017-06-16] MEDS: SYMBICORT 80-4.5 MCG INHALER INHALATION SCH ×2 (08:16→20:15)
[2017-06-16] MEDS: cefTRIAXone IN SWFI 2,000 MG/20 ML SYRINGE IVP SCH (08:21)
[2017-06-16] MEDS: LIDOCAINE 5% PATCH TOPICAL SCH (08:21)
[2017-06-16] MEDS: PANTOPRAZOLE 40 MG/10 ML VIAL IV SCH (08:22)
[2017-06-16] MEDS: FINASTERIDE 5 MG TAB PO SCH (09:01)
[2017-06-16] MEDS: ATORVASTATIN 10 MG TAB PO SCH (09:02)
[2017-06-16] MEDS: traMADol 50 MG TAB PO PRN (09:02)
[2017-06-16] MEDS: METOPROLOL TARTRATE 50 MG TAB PO SCH (09:02)
[2017-06-16] MEDS: SERTRALINE 50 MG TAB PO SCH (09:02)
[2017-06-16] MEDS: amLODIPine 10 MG TAB PO SCH (09:02)
[2017-06-16] MEDS: DOCUSATE 100 MG CAP PO SCH ×2 (09:03→16:33)
[2017-06-16] MEDS: LATANOPROST 0.005% OPHTH DROPS 2.5 ML BTL BOTH EYES SCH (09:03)
[2017-06-16] MEDS: MORPHINE SULFATE 4 MG/ML SYRINGE IVP PRN ×3 (09:17→17:26)
[2017-06-16 11:53] LABS: Glucose,Whole Blood 94 mg/dL (75-99)
--- NOTE | 2017-06-16 11:55 | P.PN ---
Subjective 81 years old male patient of Dr. Baez with past medical history of cancer status post thyroidectomy history of lung cancer status post radiation, history of COPD, diabetes, hyperlipidemia, hypertension, osteoarthritis, chronic kidney disease stage III presents in with altered mental status, abdominal discomfort for the past 2 days. Patient fractured his left femur status post intramedullary janessa on 05/06/2017 he was treated at [facility]. Strange catheter was placed during that admission for urinary retention and patient was discharged to senior care. Patient continues to have problems with his Strange catheter including decreased urine output with urine retention cough more than a liter outlined on bladder scan despite having a Strange catheter. Patient was seen by who performed a cystoscopy with no urine output despite showing a liter on the bladder scan. Patient was sent to the ER from senior care yesterday with complaints of abdominal discomfort associated with possible urinary retention as bladder scan did show more than 600. In the bladder in spite of having a Strange catheter in. Patient was examined by Dr. Solis this morning who felt the patient's catheter is functioning properly as detailed 5 mg the left ear. Overnight. On my evaluation this morning patient is hard of hearing, does document increased abdominal pain associated with pain in his left heel. Patient denies any fever , chills, change in bowel habits.he does feel constipated and had no bowel movement for the past 3 days . CBC suggestive WBC of 7.1, hemoglobin 8.7, creatinine 2.0, BUN/creatinine 34 which is patient's baseline, troponin 2 negative, increased CRP 139. Urinalysis suggestive of 1+ urine protein, leukocyte esterase, history of 14, WBC 6 with some hyaline cast. 4. Congestive soft tissue component to the posterior heel but no radial graphic changes suggestive of osteomyelitis. Significant findings also included hammertoes, osteoarthritis changes with calcaneal heel spurs. CT abdomen was positivefor acute colitis including the distal sigmoid and rectum with quadriplegia status wall thickening and surrounding his elevated d-dimer. Small foci of free air present along the inferior segment with free air in the left omentum suggesting secondary perforation. Large renal cyst present in the right. Cholelithiasis present. Moderate sized hiatal hernia. stat consult for surgery is placed. Patient initiated on levofloxacin adjusted to renal dosing along with Flagyl. Patient has high CRP concerning for left heel cellulitis, patient initiated on vancomycin. Dulcolax suppository ordered. 06/16 Today the patient was seen and evaluated. Patient noted to have a large ulcer on the left heel, surgery and infectious disease is on consult. Infectious disease recommends local wound care with Santyl followed by moist dressings along with heel protector. Patient will continue Flagyl and Rocephin added, Levaquin and vancomycin discontinued. X-ray did not suggest osteomyelitis. Patient plans a lot of heel pain, Morphine ordered for pain control. Patient did have an echocardiogram, shows mild left ventricular hypertrophy, ejection fraction between 55-60%, mild aortic regurgitation and mild aortic valve sclerosis. TSH >100, free T4 < 0.07, patient was started on Synthroid 100 Mcg. Nephrology is on consult for CKD stage III, Cr remains stable at 2.0, recommends to continue with IV fluids. Objective - Vital Signs Vital signs: Vital Signs Temp 98.1 F 06/16/17 03:36 Pulse 61 06/16/17 03:36 Resp 18 06/16/17 03:36 BP 136/63 06/16/17 03:36 Pulse Ox 91 L 06/16/17 03:36 Intake & Output 06/15/17 06/16/17 06/16/17 18:59 06:59 18:59 Intake Total 1370 980 0 Output Total 250 300 Balance 1120 680 0 Weight 85.5 kg 88.5 kg Intake: IV 640 980 Sodium Chloride 0.9% 1, 640 880 000 ml @ 80 mls/hr IV . [id number] ZAIDA Rx#:[id number] metroNIDAZOLE-NS PMX 500 100 mg In Saline 1 100ml.bag @ 100 mls/hr IVPB Q8HR ZAIDA Rx#:[id number] Intake, IV Titration 250 Amount Vancomycin 1,500 mg In 250 Sodium Chloride 0.9% 250 ml @ 125 mls/hr IVPB Q48H ZAIDA Rx#:[id number] Oral 480 0 Output: Urine 250 300 Uretheral (Strange) 300 Other: Voiding Method Indwelling Catheter Indwelling Catheter - Exam - Constitutional General appearance: cooperative, no acute distress - EENT Eyes: anicteric sclerae, PERRLA, normal appearance ENT: Hard of hearing - Neck Neck: no lymphadenopathy, normal ROM, no other, no rigidity, no stridor, no thyromegaly - Respiratory Respiratory: bilateral: CTA, negative: diminished, dullness, rales, rhonchi - Cardiovascular Rhythm: regular Heart sounds: normal: S1, S2 Abnormal Heart Sounds: no systolic murmur, no diastolic murmur, no rub, no S3 Gallop, no S4 Gallop, no click, no other - Gastrointestinal General gastrointestinal: normal bowel sounds, soft, distended abdomen normal bowel sounds heard. Tender to palpate in the lower quadrant. - Integumentary Integumentary: no rash, left leg ulcer with purulent drainage with surrounding erythema or any inflammation around 5 cm to 2 cm in size. - Neurologic Neurologic: CNII-XII intact - Musculoskeletal Musculoskeletal: strength equal bilaterally - Psychiatric Psychiatric: A&O x's 3, appropriate affect - Labs CBC & Chem 7: 06/15/17 02:40 06/15/17 02:40 Labs: Abnormal Lab Results - Last 24 Hours (Table) 06/15/17 06/15/17 06/15/17 Range/Units 02:40 02:40 11:21 ESR 22 H (0-15) mm/hr POC Glucose (mg/dL) 119 H (75-99) mg/dL Iron (65-175) ug/dL Iron Saturation (15.00-50.00) C-Reactive Protein 139.9 H (<10.0) mg/L TSH (0.465-4.680) mIU/L Free T4 (0.78-2.19) ng/dL 06/15/17 06/15/17 06/15/17 Range/Units 14:25 14:25 16:44 ESR (0-15) mm/hr POC Glucose (mg/dL) 117 H (75-99) mg/dL Iron 17 L (65-175) ug/dL Iron Saturation 7.26 L (15.00-50.00) C-Reactive Protein (<10.0) mg/L TSH >100.000 H (0.465-4.680) mIU/L Free T4 <0.07 L (0.78-2.19) ng/dL 06/15/17 Range/Units 20:44 ESR (0-15) mm/hr POC Glucose (mg/dL) 107 H (75-99) mg/dL Iron (65-175) ug/dL Iron Saturation (15.00-50.00) C-Reactive Protein (<10.0) mg/L TSH (0.465-4.680) mIU/L Free T4 (0.78-2.19) ng/dL Microbiology - Last 24 Hours (Table) 06/14/17 14:30 Urine Culture - Final Urine,Catheterized Assessment and Plan Plan: #1 acute abdominal pain secondary to left-sided colitis, with possible perforation. Continue Flagyl and Rocephin. Surgery is on consult. Patient condition is guarded. Dulcolax suppository given. Ordered for fleet edema given. #2 left heel ulcers concern for cellulitis. X-ray is negative for osteomyelitis. Elevated CRP 139.9 130. Infectious disease is on consult, recommends discontinuing vancomycin and Levaquin, continue Flagyl and Rocephin, continue with local wound care with Santyl followed by moist dressings. #3 urinary retention. Continue Strange catheter. It is possible that bladder scan was reporting bowel gas as urine. Urology is on consult. #4 history of thyroid cancer status post thyroidectomy. TSH > 100, free T4 <0.07 , started on Synthroid 100mcg. #5 lung cancer status post radiation, stable. Not requiring any oxygen at this point #6 acute kidney injury likely prerenal on chronic kidney disease stage III baseline creatinine 2. Patient appears dehydrated. Continue fluids. Nephrology consulted #7 history of hyperlipidemia. On atorvastatin 10 mg #8 history of hypertension continue hydralazine 75 twice a day, Norvasc 10 mg daily #9 history of myocardial infarction status post cardiac stent not known what year. Patient is unable to provide any history. On ASA, continue atorvastatin 10 mg daily, metoprolol 50 mg daily #10 COPD continue Advair 1 puff twice a day. Continue Duoneb as neneded #11 GERD/reflux with hiatal hernia moderate size continue lansoprazole 30 mg daily at bedtime #12 acute chest pain troponin [address] or T-wave changes on the EKG. CK slightly elevated. Echocardiogram shows ejection fraction between 55- 60%. #13 DVT prophylaxis continue SCDs. Hold heparin #14 GI prophylaxis continue lansoprazole 30 mg daily #15 patient is a full code The above impression and plan of care have been discussed and directed by signing physician. Nanette Khan nurse practitioner acting as scribe for signing physician.
[2017-06-16] MEDS: DEXTROSE 5%-0.9% NACL 1,000 ML IV SCH ×2 (11:56→23:06)
[2017-06-16] MEDS ORDERED: VANCOMYCIN 1,500 MG in SODIUM CHLORIDE 0.9% 250 ML IVPB SCH (12:00)
[2017-06-16] MEDS ORDERED: KETOROLAC 30 MG/ML 1 ML VIAL IVP SCH (12:00)
--- NOTE | 2017-06-16 14:08 | PN ---
PROGRESS NOTE The patient is seen for followup for acute kidney injury and chronic kidney disease. He currently has an indwelling Strange catheter. The patient is maintained on IV fluids at 80 mL an hour. His creatinine is about the same staying at about 2 mg/dL for the last couple of days. Previous creatinine was 1.8-1.7 mg/dL. PHYSICAL EXAMINATION: On examination today, blood pressure is 120/59, heart rate 55 per minute. He is afebrile. Examination of the heart. S1, S2. Examination lungs: Decreased breath sounds at bases. Abdomen is soft, nontender. Examination lower extremities shows no significant edema. The left foot is currently wrapped. LABS: Show potassium of 4.1 and serum creatinine 2.0 from yesterday. We do not have labs today. TSH was more than 100. His T4 less than 0.07. ASSESSMENT: 1. Acute kidney injury secondary to urine retention, possibly prerenal component as well. The patient is maintained on IV fluids. We will check a renal profile again. Continue with the IV fluids for now. Avoid any nephrotoxic agents. 2. Chronic kidney disease, NKF stage IIIB to IV with previous creatinine at 1.7-1.8 mg/dL as of September of 2016 secondary to nephrosclerosis and diabetic nephropathy. 3. Severe hypothyroidism, started on supplementation and. 4. Left heel ulcer, maintained on antibiotics, being followed by ID. 5. Microperforation noted on CAT scan, clinically, not with acute abdomen. Patient will be evaluated by General Surgery. PLAN: Repeat labs. Continue with IV fluids. Continue with indwelling Strange catheter. Continue with the Flomax and avoid NSAIDs. Encourage increased oral intake. MMODL / IJN: [id number] /
[2017-06-16] MEDS: COLLAGENASE 250 UNIT/GM OINTMENT 30 GM TUBE TOPICAL SCH (15:33)
[2017-06-16 16:11] LABS: Glucose,Whole Blood 99 mg/dL (75-99)
[2017-06-16] MEDS: ASPIRIN 81 MG PO SCH (16:33)
--- NOTE | 2017-06-16 18:25 | P.GSCN ---
History of Present Illness Consult date: 06/16/17 Reason for Consult: Colitis History of present illness: 81-year-old male presents hospitalized with abdominal pain, nausea vomiting, left heel pressure ulcer. Complaining only of pain in the left foot currently. Very hungry at this time. Strange catheter placement seemed to improve the patient's abdominal pain. He has had recent problems per the family with constipation. No recent colonoscopy. No history of colitis or inflammatory bowel disease. No history of colon cancer in the family. CAT scan was obtained yesterday because of his admitting complaints abdominal discomfort even though his pain had for the most part resolved by then and also to evaluate the bladder and whether it was fully emptied by the Strange catheter. Surprisingly the CAT scan showed a segment of distal sigmoid colon or proximal rectum where there was wall thickening and some small foci of air in the fat surrounding the colon. Patient currently on Levaquin and Flagyl. Infectious disease is following this patient. Review of Systems The patient denies any acute changes in vision or hearing, no dysphagia or odynophagia, no chest pain or shortness of breath, no dysuria or hematuria, no headache, no runny nose, no rectal bleeding or melena, no unexplained weight loss Past Medical History Past Medical History: Cancer, COPD, Eye Disorder, GERD/Reflux, Hearing Disorder / Deafness, Hyperlipidemia, Hypertension, Memory Impairment, Myocardial Infarction ([place]), Osteoarthritis ([place]), Prostate Disorder, Renal Disease, Skin Disorder, Thyroid Disorder Additional Past Medical History / Comment(s): macular degeneration, thyroid cancer, lung cancer with radiation, left heel ulcer Last Myocardial Infarction Date:: unknown History of Any Multi-Drug Resistant Organisms: None Reported Past Surgical History: Back Surgery, Heart Catheterization With Stent, Hernia Repair, Orthopedic Surgery Additional Past Surgical History / Comment(s): Fixation of fractured left femur , b/l hip replacement Past Anesthesia/Blood Transfusion Reactions: No Reported Reaction Date of Last Stent Placement:: unknown Past Psychological History: No Psychological Hx Reported Smoking Status: Former smoker Past Alcohol Use History: None Reported Past Drug Use History: None Reported - Past Family History Father Family Medical History: Myocardial Infarction ([place]) Mother Family Medical History: Cancer Medications and Allergies Home Medications Medication Instructions Recorded Confirmed Type Atorvastatin [Lipitor] 10 mg PO DAILY@0800 04/21/14 06/14/17 History Fluticasone/Salmeterol [Advair 1 puff INHALATION RT-BID@0800,209904/21/1406/14 History 250-50 Diskus] Metoprolol Tartrate [Lopressor] 50 mg PO DAILY@0804/21/14 06/14/17 History Sertraline [Zoloft] 50 mg PO DAILY@0804/21/14 06/14/17 History Tamsulosin [Flomax] 0.4 mg PO HS@209904/21/14 06/14/17 History amLODIPine [Norvasc] 10 mg PO DAILY@0804/21/14 06/14/17 History Aspirin EC [Ecotrin Low Dose] 81 mg PO DAILY@169911/07/16 06/14/17 History Lansoprazole [Prevacid] 30 mg PO HS@209911/07/16 06/14/17 History Latanoprost [Xalatan 0.005%] 1 drop BOTH EYES DAILY@79911/07/16 06/14/17 History Acetaminophen-Codeine 300-30mg 0.5 tab PO Q4H PRN 06/08/17 06/14/17 History [Tylenol #3] Amoxicillin 500 mg PO TID@0800,1400,199906/08/17 06/14/17 History Bisacodyl [Dulcolax] 10 mg RECTAL DAILY PRN 06/08/17 06/14/17 History Docusate [Colace] 100 mg PO BID@0800,169906/08/17 06/14/17 History Gabapentin [Neurontin] 200 mg PO HS@209906/08/17 06/14/17 History Glucerna Shake 1 can PO BID@0800,0 06/08/17 06/14/17 History Lidocaine [Lidoderm 5% Patch] 1 patch TRANSDERM DAILY@79906/08/17 06/14/17 History Magnesium Hydroxide [Milk of 2,400 mg PO DAILY PRN 06/08/17 06/14/17 History Magnesia] Na Phos,M-B/Na Phos,Di-Ba [Fleet 133 ml RECTAL ONCE PRN 06/08/17 06/14/17 History Adult] hydrALAZINE HCL 75 mg PO BID@0800,209906/08/17 06/14/17 History traMADol HCL [Ultram] 100 mg PO Q4HR PRN 06/08/17 06/14/17 History Finasteride [Proscar] 5 mg PO DAILY 06/14/17 06/14/17 History Allergies Allergy/AdvReac Type Severity Reaction Status Date / Time codeine AdvReac Nausea & Verified 06/14/17 13:28 Vomiting Surgical - Exam Vital Signs Temp Pulse Resp BP Pulse Ox 97.3 F L 51 L 20 126/59 95 06/14/17 13:14 06/14/17 13:14 06/14/17 13:14 06/14/17 13:14 06/14/17 13:14 Physical exam: General: Well-developed, well-nourished HEENT: Normocephalic, sclerae nonicteric Abdomen: Nontender, nondistended Extremities: Mild edema, left foot ulcer Neuro: Alert and oriented, hard of hearing and poor vision Results - Labs 06/15/17 02:40 06/15/17 02:40 Abnormal Lab Results - Last 24 Hours (Table) 06/15/17 06/15/17 Range/Units 14:25 20:44 POC Glucose (mg/dL) 107 H (75-99) mg/dL Iron 17 L (65-175) ug/dL Iron Saturation 7.26 L (15.00-50.00) Microbiology - Last 24 Hours (Table) 06/14/17 14:30 Urine Culture - Final Urine,Catheterized Assessment and Plan (1) Colitis presumed to be due to infection Narrative/Plan: Patient with evidence of colitis and associated microperforation. Abdominal exam benign. Continue antibiotics. Gradually resume diet. Will follow. Current Visit: Yes Status: Acute Code(s): K52.9 - NONINFECTIVE GASTROENTERITIS AND COLITIS, UNSPECIFIED SNOMED Code(s): 93853039
[2017-06-16 20:51] LABS: Glucose,Whole Blood 101 mg/dL (75-99)
--- NOTE | 2017-06-16 23:11 | PN ---
PROGRESS NOTE DATE OF SERVICE: 06/16/2017 REASON FOR FOLLOWUP: 1. Left heel pressure ulcer, stage III. No cellulitis. 2. Perforated bowel, likely diverticulitis. INTERVAL HISTORY: The patient is afebrile. He is breathing comfortably. His abdominal pain seems to have slightly improved. No nausea, vomiting or any diarrhea. Main symptoms remains pain to the left heel area with No chest pain, shortness of breath or cough. PHYSICAL EXAMINATION: Blood pressure 122/48 with a pulse of 58, temperature 96.8. He is 95% on 2 L nasal cannula. General description is an elderly male lying in bed in no distress. RESPIRATORY SYSTEM: Unlabored breathing. Clear to auscultation anteriorly. HEART: S1, S2. Regular rate and rhythm. ABDOMEN: Soft. Minimally distended but to guarding or rigidity. EXTREMITIES: Left heel pressure ulcer, dressed up; no obvious drainage on the dressing. LABS: No new labs have been obtained today. DIAGNOSTIC IMPRESSION AND PLAN: 1. Patient with left heel pressure ulcer, stage III, with slough tissue. No cellulitis. Local wound care with Santyl followed by moist dressing. Keep the area off pressure. 2. Patient with colitis and perforation. Suspicion is likely diverticulitis, less likely ischemic colitis. On Rocephin and Flagyl. That will be continued. Multiple family members present at the bedside. Their questions were answered. MMODL / IJN: [id number] /
[2017-06-17] MEDS: LEVOTHYROXINE 100 MCG TAB PO SCH (06:15)
[2017-06-17] MEDS ORDERED: LEVOTHYROXINE 25 MCG TAB PO SCH (06:30)
[2017-06-17 06:41] LABS: Glucose,Whole Blood 135 mg/dL (75-99)
[2017-06-17 06:49] LABS: Basophils % (A) 1 %; Eosinophils # (A) 0.1 k/uL (0-0.7); Eosinophils % (A) 2 %; HCT 28.6 % (39.0-53.0); Hypochromasia Slight; Lymphocytes # (A) 0.5 k/uL (1.0-4.8); Lymphocytes % (A) 9 %; MCH 28.2 pg (25.0-35.0); MCHC 31.6 g/dL (31.0-37.0); MCV 89.2 fL (80.0-100.0); Mean Platelet Volume 7.3; Monocytes # (A) 0.4 k/uL (0-1.0); Monocytes % (A) 7 %; Neutrophils # (A) 4.7 k/uL (1.3-7.7); Neutrophils % (A) 81 %; Platelet Count 267 k/uL (150-450); RDW 15.7 % (11.5-15.5); WBC 5.8 k/uL (3.8-10.6)
[2017-06-17 06:52] LABS: Calcium 7.7 mg/dL (8.4-10.2); Potassium 3.7 mmol/L (3.5-5.1)
[2017-06-17] MEDS: DOCUSATE 100 MG CAP PO SCH ×2 (08:36→17:26)
[2017-06-17] MEDS: amLODIPine 10 MG TAB PO SCH (08:36)
[2017-06-17] MEDS: hydrALAZINE HCL 25 MG TAB PO SCH ×2 (08:36→20:08)
[2017-06-17] MEDS: ATORVASTATIN 10 MG TAB PO SCH (08:36)
[2017-06-17] MEDS: metroNIDAZOLE-NS PMX 500 MG in SALINE 1 100ML.BAG IVPB SCH ×3 (08:37→23:08)
[2017-06-17] MEDS: METOPROLOL TARTRATE 50 MG TAB PO SCH (08:37)
[2017-06-17] MEDS: LIDOCAINE 5% PATCH TOPICAL SCH (08:37)
[2017-06-17] MEDS: PANTOPRAZOLE 40 MG/10 ML VIAL IV SCH (08:38)
[2017-06-17] MEDS: COLLAGENASE 250 UNIT/GM OINTMENT 30 GM TUBE TOPICAL SCH (08:38)
[2017-06-17] MEDS: FINASTERIDE 5 MG TAB PO SCH (08:38)
[2017-06-17] MEDS: SERTRALINE 50 MG TAB PO SCH (08:38)
[2017-06-17] MEDS: LATANOPROST 0.005% OPHTH DROPS 2.5 ML BTL BOTH EYES SCH (08:41)
[2017-06-17] MEDS: cefTRIAXone IN SWFI 2,000 MG/20 ML SYRINGE IVP SCH (08:42)
[2017-06-17] MEDS: SYMBICORT 80-4.5 MCG INHALER INHALATION SCH ×2 (09:12→19:39)
[2017-06-17 10:25] VITALS: BMI 30.9
[2017-06-17] MEDS: DEXTROSE 5%-0.9% NACL 1,000 ML IV SCH (11:13)
[2017-06-17 11:45] LABS: Glucose,Whole Blood 141 mg/dL (75-99)
--- NOTE | 2017-06-17 14:09 | PN ---
PROGRESS NOTE Patient is seen for followup for acute kidney injury, which was prerenal and an element of urine retention. Patient has an indwelling Strange catheter. He also has IV fluids. His creatinine is down from about 2.1 mg/dL on admission to 1.5 now. He has had good urine output. He had also received a dose of Toradol, which is now discontinued. Patient had evidence of free air on his abdominal CT. He had been evaluated by surgery. No plans for intervention at this time. He does not have an acute abdomen. PHYSICAL EXAMINATION: On examination, blood pressure is 141/78, heart rate 53 per minute. He is afebrile. EXAMINATION OF THE HEART: S1, S2. EXAMINATION OF THE LUNGS: Bilateral breath sounds are heard. Abdomen is soft, nontender. Examination of lower extremities shows no significant edema. Left foot is currently wrapped. [employer] exam is grossly intact. Patient is moving all 4 extremities. LABS: Labs show sodium 136, potassium 3.7, chloride 110, CO2 is 19, BUN 20, serum creatinine 1.5. Hemoglobin 9.0 g/dL. ASSESSMENT: 1. Acute kidney injury prerenal as well as secondary to urine retention, currently with indwelling Strange catheter and maintained on IV fluids. The patient's oral intake is not good and is poor. Therefore, we will continue with the IV fluids for now. Can decrease fluids to about 50 mL an hour. 2. Urine retention, currently with indwelling Strange catheter, maintained on Proscar and Flomax. 3. Chronic kidney disease, NKF stage IIIB to IV with previous creatinine about 1.7 to 1.8 mg/dL as of September of 2016, secondary to nephrosclerosis and diabetic nephropathy. 4. Severe hypothyroidism with a TSH of more than 100, currently started on supplementation. 5. Left heel ulcer, maintained on antibiotics, being followed by ID. 6. Microperforation noted on CAT scan, status post evaluation by General Surgery with no plans for intervention at this time. PLAN: Decrease IV fluids, encourage increased oral intake and repeat labs in a.m. MMODL / IJN: [id number] /
[2017-06-17] MEDS ORDERED: NA PHOS,M-B/NA PHOS,DI-BA 133 ML ENEMA RECTAL ONE (14:38)
--- NOTE | 2017-06-17 14:40 | P.PN ---
Subjective Progress Note Date: 06/17/17 81 years old male patient of Dr. Baez with past medical history of cancer status post thyroidectomy history of lung cancer status post radiation, history of COPD, diabetes, hyperlipidemia, hypertension, osteoarthritis, chronic kidney disease stage III presents in with altered mental status, abdominal discomfort for the past 2 days. Patient fractured his left femur status post intramedullary janessa on 05/06/2017 he was treated at [facility]. Strange catheter was placed during that admission for urinary retention and patient was [facility]. Patient continues to have problems with his Strange catheter including decreased urine output with urine retention cough more than a liter outlined on bladder scan despite having a Strange catheter. Patient was seen by who performed a cystoscopy with no urine output despite showing a liter on the bladder scan. Patient was sent to the ER from jail yesterday with complaints of abdominal discomfort associated with possible urinary retention as bladder scan did show more than 600. In the bladder in spite of having a Strange catheter in. Patient was examined by Dr. Solis this morning who felt the patient's catheter is functioning properly as detailed 5 mg the left ear. Overnight. On my evaluation this morning patient is hard of hearing, does document increased abdominal pain associated with pain in his left heel. Patient denies any fever , chills, change in bowel habits.he does feel constipated and had no bowel movement for the past 3 days . CBC suggestive WBC of 7.1, hemoglobin 8.7, creatinine 2.0, BUN/creatinine 34 which is patient's baseline, troponin 2 negative, increased CRP 139. Urinalysis suggestive of 1+ urine protein, leukocyte esterase, history of 14, WBC 6 with some hyaline cast. 4. Congestive soft tissue component to the posterior heel but no radial graphic changes suggestive of osteomyelitis. Significant findings also included hammertoes, osteoarthritis changes with calcaneal heel spurs. CT abdomen was positivefor acute colitis including the distal sigmoid and rectum with quadriplegia status wall thickening and surrounding his elevated d-dimer. Small foci of free air present along the inferior segment with free air in the left omentum suggesting secondary perforation. Large renal cyst present in the right. Cholelithiasis present. Moderate sized hiatal hernia. stat consult for surgery is placed. Patient initiated on levofloxacin adjusted to renal dosing along with Flagyl. Patient has high CRP concerning for left heel cellulitis, patient initiated on vancomycin. Dulcolax suppository ordered. 06/16 Today the patient was seen and evaluated. Patient noted to have a large ulcer on the left heel, surgery and infectious disease is on consult. Infectious disease recommends local wound care with Santyl followed by moist dressings along with heel protector. Patient will continue Flagyl and Rocephin added, Levaquin and vancomycin discontinued. X-ray did not suggest osteomyelitis. Patient plans a lot of heel pain, Morphine ordered for pain control. Patient did have an echocardiogram, shows mild left ventricular hypertrophy, ejection fraction between 55-60%, mild aortic regurgitation and mild aortic valve sclerosis. TSH >100, free T4 < 0.07, patient was started on Synthroid 100 Mcg. Nephrology is on consult for CKD stage III, Cr remains stable at 2.0, recommends to continue with IV fluids. 06/17 patient examined bedside complains of left lower quadrant abdominal pain. He feels better. Patient is drowsy on examination. Creatinine improved to 1.5 today. Leukocytosis. Glucose staying between 99-140. Continue antibiotics and managed conservatively. Objective - Vital Signs Vital signs: Vital Signs Temp 98.1 F 06/17/17 11:16 Pulse 53 L 06/17/17 11:16 Resp 18 06/17/17 11:16 BP 141/78 06/17/17 11:16 Pulse Ox 94 L 06/17/17 11:16 Intake & Output 06/16/17 06/17/17 06/17/17 18:59 06:59 18:59 Intake Total 480 1000 0 Output Total 550 475 Balance -70 525 0 Weight 84.5 kg 84.5 kg Intake: IV 1000 Dextrose 5%-0.9% NaCl 1, 900 000 ml @ 75 mls/hr IV . [id number] ZAIDA Rx#:[id number] metroNIDAZOLE-NS PMX 500 100 mg In Saline 1 100ml.bag @ 100 mls/hr IVPB Q8HR ZAIDA Rx#:[id number] Oral 480 0 Output: Urine 550 475 Other: Voiding Method Indwelling Catheter Indwelling Catheter Indwelling Catheter # Voids 1 - Exam - Constitutional General appearance: cooperative, no acute distress - EENT Eyes: anicteric sclerae, PERRLA, normal appearance ENT: Hard of hearing - Neck Neck: no lymphadenopathy, normal ROM, no other, no rigidity, no stridor, no thyromegaly - Respiratory Respiratory: bilateral: CTA, negative: diminished, dullness, rales, rhonchi - Cardiovascular Rhythm: regular Heart sounds: normal: S1, S2 Abnormal Heart Sounds: no systolic murmur, no diastolic murmur, no rub, no S3 Gallop, no S4 Gallop, no click, no other - Gastrointestinal General gastrointestinal: normal bowel sounds, soft, distended abdomen normal bowel sounds heard. Tender to palpate in the lower quadrant. - Integumentary Integumentary: no rash, left leg ulcer with purulent drainage with surrounding erythema or any inflammation around 5 cm to 2 cm in size. - Neurologic Neurologic: CNII-XII intact - Musculoskeletal Musculoskeletal: strength equal bilaterally - Psychiatric Psychiatric: A&O x's 3, appropriate affect - Labs CBC & Chem 7: 06/17/17 06:11 06/17/17 06:11 Labs: Abnormal Lab Results - Last 24 Hours (Table) 06/16/17 06/17/17 06/17/17 Range/Units 20:39 06:11 06:11 RBC 3.20 L (4.30-5.90) m/uL Hgb 9.0 L (13.0-17.5) gm/dL Hct 28.6 L (39.0-53.0) % RDW 15.7 H (11.5-15.5) % Lymphocytes # 0.5 L (1.0-4.8) k/uL Sodium 136 L (137-145) mmol/L Chloride 110 H (98-107) mmol/L Carbon Dioxide 19 L (22-30) mmol/L Creatinine 1.50 H (0.66-1.25) mg/dL Glucose 113 H (74-99) mg/dL POC Glucose (mg/dL) 101 H (75-99) mg/dL Calcium 7.7 L (8.4-10.2) mg/dL 06/17/17 06/17/17 Range/Units 06:39 11:41 RBC (4.30-5.90) m/uL Hgb (13.0-17.5) gm/dL Hct (39.0-53.0) % RDW (11.5-15.5) % Lymphocytes # (1.0-4.8) k/uL Sodium (137-145) mmol/L Chloride (98-107) mmol/L Carbon Dioxide (22-30) mmol/L Creatinine (0.66-1.25) mg/dL Glucose (74-99) mg/dL POC Glucose (mg/dL) 135 H 141 H (75-99) mg/dL Calcium (8.4-10.2) mg/dL Assessment and Plan Plan: #1 acute abdominal pain secondary to left-sided colitis, with possible perforation . Continue levofloxacin and Flagyl. Continue IV fluids at 80 mL per hour. Lactic acid ordered. Surgery consult placed, conservative management. regular diet . Patient condition is guarded. Dulcolax suppository given. Ordered for fleet edema given. #2 left heel ulcers stage 3, no cellulitis Feet is negative for osteomyelitis . Elevated CRP 139.[address] alan consulted. #3 urinary retention. Continue Strange catheter. It is possible that bladder scan was reporting bowel gas as urine. #4 history of thyroid cancer status post thyroidectomy patient is not on levothyroxine. TSH ordered #5 lung cancer status post radiation, stable. Not requiring any oxygen at this point #6 acute kidney injury likely prerenal on chronic kidney disease stage III baseline creatinine 2. Creatinine improved today Continue fluids. Nephrology consulted #7 history of hyperlipidemia #8 history of hypertension continue hydralazine 75 twice a day, Norvasc 10 mg daily #9 history of myocardial infarction status post cardiac stent not known what year. Patient is unable to provide any history. Hold aspirin for possible surgery. Continue atorvastatin 10 mg daily, metoprolol 50 mg daily #10 COPD continue Advair 1 puff twice a day. Continue Duoneb as neneded #11 GERD/reflux with hiatal hernia moderate size continue lansoprazole 30 mg daily at bedtime #12 acute chest pain troponin [address] or T-wave changes on the EKG. CK slightly elevated stop echo ordered. #13 DVT prophylaxis continue SCDs. Hold heparin #14 GI prophylaxis continue lansoprazole 30 mg daily #15 patient is a full code
--- NOTE | 2017-06-17 15:17 | XR ---
Abdomen HISTORY: Ileus frontal view of the abdomen submitted on 3 images correlated prior exam 06/14/2017 Patient is status post bilateral hip arthroplasties, surgical clips are present in the right groin. P atient is rotated. There are distended loops of small and large bowel. Lung bases are remarkable for some minimal patchy density at the left lung base. Hiatal hernia noted. No pneumoperitoneum. Degenera tive disc change present within the visualized spine. Vascular calcifications present within the pelv is. Bone mineralization is reduced. IMPRESSION: Findings compatible with patient's history of ileus. Follow-up as indicated. Possible lef t lower lobe atelectasis versus pneumonia, correlate.
[2017-06-17] MEDS: SODIUM FERRIC GLUCONAT-SUCROSE 125 MG in SODIUM CHLORIDE 0.9% 100 ML IVPB SCH (15:31)
[2017-06-17 16:51] LABS: Glucose,Whole Blood 119 mg/dL (75-99)
--- NOTE | 2017-06-17 17:11 | P.PN ---
Subjective Progress Note Date: 06/17/17 Principal diagnosis: Colon Microperforation Patient doing well today. Denies abdominal pain. Is complaining of some right shoulder and left foot pain. Tolerating diet. Abdominal x-rays were ordered presumably for abdominal distention although the patient states this is his normal abdominal size. Abdominal x-rays show ileus without free air. White blood cell count normal. He is afebrile. Objective - Vital Signs Vital signs: Vital Signs Temp 98.1 F 06/17/17 11:16 Pulse 53 L 06/17/17 11:16 Resp 18 06/17/17 11:16 BP 141/78 06/17/17 11:16 Pulse Ox 94 L 06/17/17 11:16 Intake & Output 06/16/17 06/17/17 06/17/17 18:59 06:59 18:59 Intake Total 480 1000 0 Output Total 550 475 Balance -70 525 0 Weight 84.5 kg 84.5 kg Intake: IV 1000 Dextrose 5%-0.9% NaCl 1, 900 000 ml @ 75 mls/hr IV . [id number] ZAIDA Rx#:[id number] metroNIDAZOLE-NS PMX 500 100 mg In Saline 1 100ml.bag @ 100 mls/hr IVPB Q8HR ZAIDA Rx#:[id number] Oral 480 0 Output: Urine 550 475 Other: Voiding Method Indwelling Catheter Indwelling Catheter Indwelling Catheter # Voids 1 - Exam Abdomen: Soft, nondistended, nontender - Labs CBC & Chem 7: 06/17/17 06:11 06/17/17 06:11 Labs: Abnormal Lab Results - Last 24 Hours (Table) 06/16/17 06/17/17 06/17/17 Range/Units 20:39 06:11 06:11 RBC 3.20 L (4.30-5.90) m/uL Hgb 9.0 L (13.0-17.5) gm/dL Hct 28.6 L (39.0-53.0) % RDW 15.7 H (11.5-15.5) % Lymphocytes # 0.5 L (1.0-4.8) k/uL Sodium 136 L (137-145) mmol/L Chloride 110 H (98-107) mmol/L Carbon Dioxide 19 L (22-30) mmol/L Creatinine 1.50 H (0.66-1.25) mg/dL Glucose 113 H (74-99) mg/dL POC Glucose (mg/dL) 101 H (75-99) mg/dL Calcium 7.7 L (8.4-10.2) mg/dL 06/17/17 06/17/17 06/17/17 Range/Units 06:39 11:41 16:49 RBC (4.30-5.90) m/uL Hgb (13.0-17.5) gm/dL Hct (39.0-53.0) % RDW (11.5-15.5) % Lymphocytes # (1.0-4.8) k/uL Sodium (137-145) mmol/L Chloride (98-107) mmol/L Carbon Dioxide (22-30) mmol/L Creatinine (0.66-1.25) mg/dL Glucose (74-99) mg/dL POC Glucose (mg/dL) 135 H 141 H 119 H (75-99) mg/dL Calcium (8.4-10.2) mg/dL Assessment and Plan (1) Colitis presumed to be due to infection Narrative/Plan: Continue antibiotics. Continue low fiber diet. Increase activity level as tolerated. Will follow with you. Current Visit: Yes Status: Acute Code(s): K52.9 - NONINFECTIVE GASTROENTERITIS AND COLITIS, UNSPECIFIED SNOMED Code(s): 08388390
[2017-06-17] MEDS: ASPIRIN 81 MG PO SCH (17:26)
--- NOTE | 2017-06-17 19:57 | PN ---
PROGRESS NOTE DATE OF SERVICE: 06/17/2017 REASON FOR FOLLOW UP: 1. Left heel pressure ulcer. 2. Possible diverticulitis with microperforation. INTERVAL HISTORY: The patient is afebrile. He seems to be more awake and alert, breathing comfortably. Denies having any chest pain or cough. Abdominal pain is currently controlled. No nausea or vomiting. Still has some pain in the left heel area, though no worsening off the pressure. PHYSICAL EXAMINATION: Blood pressure is 141/78 with a pulse of 53, temperature 98.1. He is 94% on 2 L nasal cannula. General description is an elderly male lying in bed in no distress. RESPIRATORY SYSTEM: Unlabored breathing. Clear to auscultation anteriorly. HEART: S1, S2. Regular rate and rhythm. ABDOMEN: Soft. No tenderness. Left heel wound is dressed, with no drainage on the dressing. LABS: Hemoglobin 9 with white count of 5.8. BUN of 20, creatinine 1.50. DIAGNOSTIC IMPRESSION AND PLAN: 1. Patient with a left heel pressure ulcer, stage III, with slough tissue but no cellulitis. Local wound care with Santyl followed by moist dressing. Keep the area off the pressure. 2. Patient with possible diverticulitis with microperforation, for which the patient is continued on Rocephin and Flagyl, watching his kidney function closely. Continue supportive care. MMODL / IJN: [id number] /
[2017-06-17 20:08] LABS: Glucose,Whole Blood 125 mg/dL (75-99)
[2017-06-17] MEDS: GABAPENTIN 100 MG CAP PO SCH (20:08)
[2017-06-17] MEDS: TAMSULOSIN 0.4 MG CAP.ER.24H PO SCH (20:09)
[2017-06-18] MEDS: DEXTROSE 5%-0.9% NACL 1,000 ML IV SCH ×2 (04:41→19:11)
[2017-06-18] MEDS: LEVOTHYROXINE 100 MCG TAB PO SCH (06:19)
[2017-06-18 06:56] LABS: Glucose,Whole Blood 113 mg/dL (75-99)
[2017-06-18] MEDS: SYMBICORT 80-4.5 MCG INHALER INHALATION SCH ×2 (07:45→19:32)
[2017-06-18] MEDS: COLLAGENASE 250 UNIT/GM OINTMENT 30 GM TUBE TOPICAL SCH (09:01)
[2017-06-18] MEDS: amLODIPine 10 MG TAB PO SCH (09:01)
[2017-06-18] MEDS: PANTOPRAZOLE 40 MG/10 ML VIAL IV SCH (09:01)
[2017-06-18] MEDS: ATORVASTATIN 10 MG TAB PO SCH (09:02)
[2017-06-18] MEDS: FINASTERIDE 5 MG TAB PO SCH (09:02)
[2017-06-18] MEDS: DOCUSATE 100 MG CAP PO SCH ×2 (09:02→16:54)
[2017-06-18] MEDS: LIDOCAINE 5% PATCH TOPICAL SCH (09:03)
[2017-06-18] MEDS: LATANOPROST 0.005% OPHTH DROPS 2.5 ML BTL BOTH EYES SCH (09:03)
[2017-06-18] MEDS: hydrALAZINE HCL 25 MG TAB PO SCH ×2 (09:03→20:33)
[2017-06-18] MEDS: METOPROLOL TARTRATE 50 MG TAB PO SCH (09:03)
[2017-06-18] MEDS: metroNIDAZOLE-NS PMX 500 MG in SALINE 1 100ML.BAG IVPB SCH ×3 (09:04→23:48)
[2017-06-18] MEDS: cefTRIAXone IN SWFI 2,000 MG/20 ML SYRINGE IVP SCH (09:04)
[2017-06-18] MEDS: SERTRALINE 50 MG TAB PO SCH (09:04)
--- NOTE | 2017-06-18 11:43 | P.PN ---
Subjective Progress Note Date: 06/18/17 Seen and examined for the follow-up of acute kidney injury. Objective - Vital Signs Vital signs: Vital Signs Temp 99.6 F 06/18/17 07:00 Pulse 77 06/18/17 07:00 Resp 20 06/18/17 07:00 BP 144/75 06/18/17 07:00 Pulse Ox 93 L 06/18/17 07:00 Intake & Output 06/17/17 06/18/17 06/18/17 18:59 06:59 18:59 Intake Total 0 395 Output Total 900 Balance 0 -505 Weight 84.5 kg Intake: IV 395 Dextrose 5%-0.9% NaCl 1, 295 000 ml @ 75 mls/hr IV . [id number] ZAIDA Rx#:[id number] metroNIDAZOLE-NS PMX 500 100 mg In Saline 1 100ml.bag @ 100 mls/hr IVPB Q8HR ZAIDA Rx#:[id number] Oral 0 Output: Urine 900 Other: Voiding Method Indwelling Catheter Indwelling Catheter Indwelling Catheter - Exam Lying in bed no acute distress S1 and S2 heard Lungs clear Strange catheter draining urine No edema - Labs CBC & Chem 7: 06/17/17 06:11 06/17/17 06:11 Labs: Abnormal Lab Results - Last 24 Hours (Table) 06/17/17 06/17/17 06/17/17 Range/Units 11:41 16:49 20:01 POC Glucose (mg/dL) 141 H 119 H 125 H (75-99) mg/dL 06/18/17 Range/Units 06:51 POC Glucose (mg/dL) 113 H (75-99) mg/dL Assessment and Plan Assessment: Impression: #1 acute kidney injury secondary to prerenal process and urinary retention #2 urinary retention status post Strange #3 CK D stage IIIB/4 baseline creatinine about 1.7-1.8 MG per DL secondary to nephrosclerosis sclerosis #4 hypertension with Ckd Recommendations: #1. Stop IV fluids #2 renal functions better than baseline #3 DC Strange catheter check PVRs to monitor for urinary retention.
[2017-06-18 11:44] LABS: Glucose,Whole Blood 124 mg/dL (75-99)
--- NOTE | 2017-06-18 12:08 | P.PN ---
Subjective Progress Note Date: 06/18/17 Patient is a 81-year-old white male who is being treated conservatively for a microperforation of the colon. At this time he denies any abdominal pain. T- max recorded at 99.6. The patient's white blood cell count 5.8 yesterday. The patient is presently on Rocephin and Flagyl. Objective - Vital Signs Vital signs: Vital Signs Temp 99.6 F 06/18/17 07:00 Pulse 77 06/18/17 07:00 Resp 20 06/18/17 07:00 BP 144/75 06/18/17 07:00 Pulse Ox 93 L 06/18/17 07:00 Intake & Output 06/17/17 06/18/17 06/18/17 18:59 06:59 18:59 Intake Total 0 395 Output Total 900 Balance 0 -505 Weight 84.5 kg Intake: IV 395 Dextrose 5%-0.9% NaCl 1, 295 000 ml @ 75 mls/hr IV . [id number] ZAIDA Rx#:[id number] metroNIDAZOLE-NS PMX 500 100 mg In Saline 1 100ml.bag @ 100 mls/hr IVPB Q8HR ZAIDA Rx#:[id number] Oral 0 Output: Urine 900 Other: Voiding Method Indwelling Catheter Indwelling Catheter Indwelling Catheter - Constitutional General appearance: Present: average body habitus - Respiratory Details: Decreased breath sounds at the bases - Cardiovascular Heart sounds: normal: S1, S2 - Gastrointestinal Gastrointestinal Comment(s): no Guarding or rebound General gastrointestinal: Present: normal bowel sounds, soft - Labs CBC & Chem 7: 06/17/17 06:11 06/17/17 06:11 Labs: Abnormal Lab Results - Last 24 Hours (Table) 06/17/17 06/17/17 06/18/17 Range/Units 16:49 20:01 06:51 POC Glucose (mg/dL) 119 H 125 H 113 H (75-99) mg/dL 06/18/17 Range/Units 11:43 POC Glucose (mg/dL) 124 H (75-99) mg/dL Assessment and Plan Assessment: Impression/plan: 1. Microperforation of the colon patient being treated conservatively with antibiotics. At this time patient does not have an acute surgical abdomen 2. May advance diet
[2017-06-18] MEDS: SODIUM FERRIC GLUCONAT-SUCROSE 125 MG in SODIUM CHLORIDE 0.9% 100 ML IVPB SCH (12:36)
[2017-06-18] MEDS: ASPIRIN 81 MG PO SCH (16:54)
[2017-06-18 17:25] LABS: Glucose,Whole Blood 116 mg/dL (75-99)
[2017-06-18] MEDS: TAMSULOSIN 0.4 MG CAP.ER.24H PO SCH (20:33)
[2017-06-18] MEDS: Acetaminophen-Codeine 300-30mg TAB PO PRN (20:33)
[2017-06-18] MEDS: GABAPENTIN 100 MG CAP PO SCH (20:33)
[2017-06-18 20:40] LABS: Glucose,Whole Blood 115 mg/dL (75-99)
[2017-06-19] MEDS: DEXTROSE 5%-0.9% NACL 1,000 ML IV SCH ×2 (06:57→19:59)
[2017-06-19] MEDS: LEVOTHYROXINE 100 MCG TAB PO SCH (06:58)
[2017-06-19 07:06] LABS: Glucose,Whole Blood 102 mg/dL (75-99)
[2017-06-19] MEDS: ATORVASTATIN 10 MG TAB PO SCH (07:55)
[2017-06-19] MEDS: hydrALAZINE HCL 25 MG TAB PO SCH ×2 (07:55→20:07)
[2017-06-19] MEDS: LATANOPROST 0.005% OPHTH DROPS 2.5 ML BTL BOTH EYES SCH (07:55)
[2017-06-19] MEDS: SYMBICORT 80-4.5 MCG INHALER INHALATION SCH ×2 (07:55→21:18)
[2017-06-19] MEDS: DOCUSATE 100 MG CAP PO SCH ×2 (07:55→16:02)
[2017-06-19] MEDS: amLODIPine 10 MG TAB PO SCH (07:55)
[2017-06-19] MEDS: cefTRIAXone IN SWFI 2,000 MG/20 ML SYRINGE IVP SCH (07:56)
[2017-06-19] MEDS: metroNIDAZOLE-NS PMX 500 MG in SALINE 1 100ML.BAG IVPB SCH ×3 (07:56→23:55)
[2017-06-19] MEDS: LIDOCAINE 5% PATCH TOPICAL SCH (07:56)
[2017-06-19] MEDS: SERTRALINE 50 MG TAB PO SCH (07:56)
[2017-06-19] MEDS: PANTOPRAZOLE 40 MG/10 ML VIAL IV SCH (07:57)
[2017-06-19] MEDS: COLLAGENASE 250 UNIT/GM OINTMENT 30 GM TUBE TOPICAL SCH (07:57)
[2017-06-19] MEDS: FINASTERIDE 5 MG TAB PO SCH (07:57)
[2017-06-19 08:44] LABS: Calcium 8.3 mg/dL (8.4-10.2); Potassium 3.6 mmol/L (3.5-5.1)
[2017-06-19 08:48] LABS: HCT 29.7 % (39.0-53.0); MCH 29.2 pg (25.0-35.0); MCHC 33.5 g/dL (31.0-37.0); MCV 87.3 fL (80.0-100.0); Mean Platelet Volume 7.1; Platelet Count 288 k/uL (150-450); RDW 15.7 % (11.5-15.5)
[2017-06-19 09:16] LABS: Band Neutrophils % 2 %; Eosinophils # (M) 0.18 k/uL (0-0.7); Metamyelocytes # (M) 0.48 k/uL (0); Metamyelocytes % 8 %; Monocytes # (M) 0.36 k/uL (0-1.0); Myelocytes # (M) 0.18 k/uL (0); Myelocytes % 3 %; Neutrophils % (M) 60 %; Nucleated Red Blood Cells 0 /100 WBC (0-0); Polychromasia Present; Total Cells Counted 200
[2017-06-19] MEDS: SODIUM FERRIC GLUCONAT-SUCROSE 125 MG in SODIUM CHLORIDE 0.9% 100 ML IVPB SCH (09:25)
[2017-06-19 11:09] LABS: Glucose,Whole Blood 131 mg/dL (75-99)
--- NOTE | 2017-06-19 11:12 | P.PN ---
Subjective Progress Note Date: 06/19/17 Seen and examined for the follow-up of acute kidney injury. Objective - Vital Signs Vital signs: Vital Signs Temp 98.3 F 06/19/17 07:00 Pulse 76 06/19/17 07:00 Resp 20 06/19/17 07:00 BP 140/62 06/19/17 07:00 Pulse Ox 95 06/19/17 07:00 Intake & Output 06/18/17 06/19/17 06/19/17 17:59 06:59 18:59 Intake Total Output Total Balance Intake: IV Dextrose 5%-0.9% NaCl 1, 000 ml @ 75 mls/hr IV . [id number] ZAIDA Rx#:[id number] Sodium Ferric Gluconat- Sucrose 125 mg In Sodium Chloride 0.9% 100 ml @ 100 mls/hr IVPB DAILY ZAIDA Rx#:[id number] metroNIDAZOLE-NS PMX 500 mg In Saline 1 100ml.bag @ 100 mls/hr IVPB Q8HR ZAIDA Rx#:[id number] Output: Urine Other: Voiding Method Indwelling Catheter - Exam Lying in bed no acute distress S1 and S2 heard Lungs clear Strange catheter draining urine No edema - Labs CBC & Chem 7: 06/19/17 07:49 06/19/17 07:49 Labs: Abnormal Lab Results - Last 24 Hours (Table) 06/18/17 06/18/17 06/18/17 Range/Units 11:43 17:21 20:26 RBC (4.30-5.90) m/uL Hgb (13.0-17.5) gm/dL Hct (39.0-53.0) % RDW (11.5-15.5) % Metamyelocytes # (Man) (0) k/uL Myelocytes # (Manual) (0) k/uL Chloride (98-107) mmol/L Carbon Dioxide (22-30) mmol/L BUN (9-20) mg/dL Creatinine (0.66-1.25) mg/dL POC Glucose (mg/dL) 124 H 116 H 115 H (75-99) mg/dL Calcium (8.4-10.2) mg/dL 06/19/17 06/19/17 06/19/17 Range/Units 06:47 07:49 07:49 RBC 3.40 L (4.30-5.90) m/uL Hgb 10.0 L (13.0-17.5) gm/dL Hct 29.7 L (39.0-53.0) % RDW 15.7 H (11.5-15.5) % Metamyelocytes # (Man) 0.48 H (0) k/uL Myelocytes # (Manual) 0.18 H (0) k/uL Chloride 112 H (98-107) mmol/L Carbon Dioxide 19 L (22-30) mmol/L BUN 23 H (9-20) mg/dL Creatinine 1.53 H (0.66-1.25) mg/dL POC Glucose (mg/dL) 102 H (75-99) mg/dL Calcium 8.3 L (8.4-10.2) mg/dL 06/19/17 Range/Units 11:02 RBC (4.30-5.90) m/uL Hgb (13.0-17.5) gm/dL Hct (39.0-53.0) % RDW (11.5-15.5) % Metamyelocytes # (Man) (0) k/uL Myelocytes # (Manual) (0) k/uL Chloride (98-107) mmol/L Carbon Dioxide (22-30) mmol/L BUN (9-20) mg/dL Creatinine (0.66-1.25) mg/dL POC Glucose (mg/dL) 131 H (75-99) mg/dL Calcium (8.4-10.2) mg/dL Assessment and Plan Assessment: Impression: #1 acute kidney injury secondary to prerenal process and urinary retention #2 urinary retention status post Strange #3 CK D stage IIIB/4 baseline creatinine about 1.7-1.8 MG per DL secondary to nephrosclerosis sclerosis #4 hypertension with Ckd Recommendations: #1. Stop IV fluids #2 renal functions stable and better than baseline #3 DC Strange catheter check PVRs to monitor for urinary retention.
--- NOTE | 2017-06-19 12:09 | P.PN ---
Subjective Patient is a 81-year-old white male who is being treated conservatively for a microperforation of the colon. At this time he denies any abdominal pain. T- max recorded at 98.3. The patient's white blood cell count 6 today. The patient is presently on Rocephin and Flagyl. Objective - Vital Signs Vital signs: Vital Signs Temp 98.3 F 06/19/17 07:00 Pulse 76 06/19/17 07:00 Resp 20 06/19/17 07:00 BP 140/62 06/19/17 07:00 Pulse Ox 95 06/19/17 07:00 Intake & Output 06/18/17 06/19/17 06/19/17 17:59 06:59 18:59 Intake Total Output Total Balance Intake: IV Dextrose 5%-0.9% NaCl 1, 000 ml @ 75 mls/hr IV . [id number] ZAIDA Rx#:[id number] Sodium Ferric Gluconat- Sucrose 125 mg In Sodium Chloride 0.9% 100 ml @ 100 mls/hr IVPB DAILY ZAIDA Rx#:[id number] metroNIDAZOLE-NS PMX 500 mg In Saline 1 100ml.bag @ 100 mls/hr IVPB Q8HR ZAIDA Rx#:[id number] Output: Urine Other: Voiding Method Indwelling Catheter - Constitutional General appearance: Present: obese - Respiratory Respiratory: bilateral: diminished - Cardiovascular Heart sounds: normal: S1, S2 - Gastrointestinal Gastrointestinal Comment(s): No guarding or rebound General gastrointestinal: Present: decreased bowel sounds, soft - Labs CBC & Chem 7: 06/19/17 07:49 06/19/17 07:49 Labs: Abnormal Lab Results - Last 24 Hours (Table) 06/18/17 06/18/17 06/18/17 Range/Units 11:43 17:21 20:26 RBC (4.30-5.90) m/uL Hgb (13.0-17.5) gm/dL Hct (39.0-53.0) % RDW (11.5-15.5) % Metamyelocytes # (Man) (0) k/uL Myelocytes # (Manual) (0) k/uL Chloride (98-107) mmol/L Carbon Dioxide (22-30) mmol/L BUN (9-20) mg/dL Creatinine (0.66-1.25) mg/dL POC Glucose (mg/dL) 124 H 116 H 115 H (75-99) mg/dL Calcium (8.4-10.2) mg/dL 06/19/17 06/19/17 06/19/17 Range/Units 06:47 07:49 07:49 RBC 3.40 L (4.30-5.90) m/uL Hgb 10.0 L (13.0-17.5) gm/dL Hct 29.7 L (39.0-53.0) % RDW 15.7 H (11.5-15.5) % Metamyelocytes # (Man) 0.48 H (0) k/uL Myelocytes # (Manual) 0.18 H (0) k/uL Chloride 112 H (98-107) mmol/L Carbon Dioxide 19 L (22-30) mmol/L BUN 23 H (9-20) mg/dL Creatinine 1.53 H (0.66-1.25) mg/dL POC Glucose (mg/dL) 102 H (75-99) mg/dL Calcium 8.3 L (8.4-10.2) mg/dL 06/19/17 Range/Units 11:02 RBC (4.30-5.90) m/uL Hgb (13.0-17.5) gm/dL Hct (39.0-53.0) % RDW (11.5-15.5) % Metamyelocytes # (Man) (0) k/uL Myelocytes # (Manual) (0) k/uL Chloride (98-107) mmol/L Carbon Dioxide (22-30) mmol/L BUN (9-20) mg/dL Creatinine (0.66-1.25) mg/dL POC Glucose (mg/dL) 131 H (75-99) mg/dL Calcium (8.4-10.2) mg/dL Assessment and Plan Assessment: Impression/plan: 1. Microperforation of the colon patient being treated conservatively with antibiotics. At this time patient does not have an acute surgical abdomen 2. May advance diet
--- NOTE | 2017-06-19 12:41 | P.CRDCN ---
History of Present Illness Consult date: 06/19/17 History of present illness: Mr. Ortiz is a pleasant 81-year-old male past medical history significant for COPD, gastroesophageal reflux disease, dyslipidemia, hypertension, chronic renal disease and coronary artery disease. He is currently being treated conservatively for a microperforation of the colon. Surgery is following. See the patient in consultation for symptoms of bradycardia and evidence of third degree A-V block. Telemetry tracings been reviewed and this is evident intermittently. He converts back to sinus with first degree AVB. At the time of my exam he is maintaining a sinus rhythm. At the time of my exam he denies symptoms of chest pain, shortness of breath, dizziness, palpitations, nausea or diaphoresis. EKG on arrival reveals sinus bradycardia heart rate 58 with first-degree AV block. He has evidence of T-wave inversions in the inferior leads as well as poor R-wave progression. Chest x-ray reveals cardiomegaly, COPD and left basilar atelectasis favored over infiltrate, upper mediastinal prominence stable as well as subsegmental chronic appearing consolidation to the right upper lobe. Laboratory data reviewed, hemoglobin 10.0, platelets 288, potassium 3.6, TSH greater than 100, free T4 less than 0.07, cardiac enzymes negative 3, CRP 139.9. Current cardiac medications include amlodipine 10 mg daily, hydralazine 75 mg twice a day, metoprolol 50 mg daily, atorvastatin 10 mg daily and aspirin 81 mg daily. Echocardiogram reveals preserved left ventricular systolic function with ejection fraction 55-60%, mild aortic regurgitation, and mild aortic valve sclerosis. At this time my exam: He denies COMPLAINTS. Unsure of his baseline functional capacity. CONSTITUTIONAL: Denies fever. Denies chills. EYES: Denies blurred vision. Denies vision changes. Denies eye pain. EARS, NOSE, MOUTH & THROAT: Denies headache. Denies sore throat. Denies ear pain. CARDIOVASCULAR: Denies chest pain. Denies shortness of breath. Denies orthopnea. Denies PND. Denies palpitations. RESPIRATORY: Denies cough. GASTROINTESTINAL: Denies abdominal pain. Denies diarrhea. Denies constipation. Denies nausea. Denies vomiting. MUSCULOSKELETAL: Denies myalgias. INTEGUMENTARY: Denies pruitis. Denies rash. NEUROLOGIC: Denies numbness. Denies tingling. Denies weakness. PSYCHIATRIC: Denies anxiety. Denies depression. ENDOCRINE: Denies fatigue. Denies weight change. Denies polydipsia. Denies polyurina. GENITOURINARY: Denies burning, hematuria or urgency with micturation. HEMATOLOGIC: Denies history of anemia. Denies bleeding. Blood pressure 140/62 heart rate 76 afebrile maintaining oxygen saturation on 2 L nasal cannula GENERAL: This is a 81-year-old male in no apparent distress at the time of my examination. HEENT: Head is atraumatic, normocephalic. Pupils are equal, round. Sclerae anicteric. Conjunctivae are clear. Mucous membranes of the mouth are moist. Neck is supple. There is no jugular venous distention. No carotid bruit is heard. LUNGS: Coarse throughout. No chest wall tenderness is noted on palpation or with deep breathing. HEART: Regular rate and rhythm with murmur at the base, no rubs or gallops. S1 and S2 heard. ABDOMEN: Soft, nontender. Bowel sounds are heard. No organomegaly noted. EXTREMITIES: No evidence of peripheral edema and no calf tenderness noted. VASCULAR: Radial and dorsalis pedis pulses palpated, no evidence of clubbing. NEUROLOGIC: Patient is awake, alert and oriented. Assessment/Plan 1. 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 History of coronary artery disease 3. Chronic kidney disease 4. Hypertension 5. Dyslipidemia 6. COPD 7. Microperforation of bowel, surgery following closely 8. Hypothyroidism Hold all beta blocking agents. Ongoing monitoring of electrolytes. Hypothyroidism managed per primary care. May increase hydralazine for blood pressure control. Follow with Dr. Deal upon discharge for possible loop recorder implantation. Thank you kindly for this consultation. Nurse Practitioner note has been reviewed, I agree with a documented findings and plan of care. Patient was seen and examined. Past Medical History Past Medical History: Cancer, COPD, Eye Disorder, GERD/Reflux, Hearing Disorder / Deafness, Hyperlipidemia, Hypertension, Memory Impairment, Myocardial Infarction ([place]), Osteoarthritis (OA), Prostate Disorder, Renal Disease, Skin Disorder, Thyroid Disorder Additional Past Medical History / Comment(s): macular degeneration, thyroid cancer, lung cancer with radiation, left heel ulcer Last Myocardial Infarction Date:: unknown History of Any Multi-Drug Resistant Organisms: None Reported Past Surgical History: Back Surgery, Heart Catheterization With Stent, Hernia Repair, Orthopedic Surgery Additional Past Surgical History / Comment(s): Fixation of fractured left femur , b/l hip replacement Past Anesthesia/Blood Transfusion Reactions: No Reported Reaction Date of Last Stent Placement:: unknown Past Psychological History: No Psychological Hx Reported Smoking Status: Former smoker Past Alcohol Use History: None Reported Past Drug Use History: None Reported - Past Family History Father Family Medical History: Myocardial Infarction ([place]) Mother Family Medical History: Cancer Medications and Allergies Home Medications Medication Instructions Recorded Confirmed Type Atorvastatin [Lipitor] 10 mg PO DAILY@79904/21/14 06/14/17 History Fluticasone/Salmeterol [Advair 1 puff INHALATION RT-BID@799,209904/21/1406/14 History 250-50 Diskus] Metoprolol Tartrate [Lopressor] 50 mg PO DAILY@79904/21/14 06/14/17 History Sertraline [Zoloft] 50 mg PO DAILY@79904/21/14 06/14/17 History Tamsulosin [Flomax] 0.4 mg PO HS@209904/21/14 06/14/17 History amLODIPine [Norvasc] 10 mg PO DAILY@79904/21/14 06/14/17 History Aspirin EC [Ecotrin Low Dose] 81 mg PO DAILY@169911/07/16 06/14/17 History Lansoprazole [Prevacid] 30 mg PO HS@209911/07/16 06/14/17 History Latanoprost [Xalatan 0.005%] 1 drop BOTH EYES DAILY@79911/07/16 06/14/17 History Acetaminophen-Codeine 300-30mg 0.5 tab PO Q4H PRN 06/08/17 06/14/17 History [Tylenol #3] Amoxicillin 500 mg PO TID@0800,1400,2000 06/08/17 06/14/17 History Bisacodyl [Dulcolax] 10 mg RECTAL DAILY PRN 06/08/17 06/14/17 History Docusate [Colace] 100 mg PO BID@0800,1700 06/08/17 06/14/17 History Gabapentin [Neurontin] 200 mg PO HS@209906/08/17 06/14/17 History Glucerna Shake 1 can PO BID@0800,1700 06/08/17 06/14/17 History Lidocaine [Lidoderm 5% Patch] 1 patch TRANSDERM DAILY@0800 06/08/17 06/14/17 History Magnesium Hydroxide [Milk of 2,400 mg PO DAILY PRN 06/08/17 06/14/17 History Magnesia] Na Phos,M-B/Na Phos,Di-Ba [Fleet 133 ml RECTAL ONCE PRN 06/08/17 06/14/17 History Adult] hydrALAZINE HCL 75 mg PO BID@0800,2100 06/08/17 06/14/17 History traMADol HCL [Ultram] 100 mg PO Q4HR PRN 06/08/17 06/14/17 History Finasteride [Proscar] 5 mg PO DAILY 06/14/17 06/14/17 History Allergies Allergy/AdvReac Type Severity Reaction Status Date / Time codeine AdvReac Nausea & Verified 06/14/17 13:28 Vomiting Physical Exam Vitals: Vital Signs Temp Pulse Resp BP Pulse Ox 06/19/17 07:00 98.3 F 76 20 140/62 95 06/18/17 23:00 98.1 F 68 17 145/69 93 L 06/18/17 20:29 65 142/68 06/18/17 15:00 98.9 F 64 20 118/54 97 Intake and Output 06/18/17 06/19/17 06/19/17 21:59 06:59 14:59 Intake Total Output Total Balance Intake: IV Dextrose 5%-0.9% NaCl 1, 000 ml @ 75 mls/hr IV . [id number] [facility] Rx#:[id number] Sodium Ferric Gluconat- Sucrose 125 mg In Sodium Chloride 0.9% 100 ml @ 100 mls/hr IVPB DAILY [facility] Rx#:[id number] metroNIDAZOLE-NS PMX 500 mg In Saline 1 100ml.bag @ 100 mls/hr IVPB Q8HR [facility] Rx#:[id number] Output: Urine Other: Voiding Method Results 06/19/17 07:49 06/19/17 07:49 CBC 06/19/17 Range/Units 07:49 WBC 6.0 (3.8-10.6) k/uL RBC 3.40 L (4.30-5.90) m/uL Hgb 10.0 L (13.0-17.5) gm/dL Hct 29.7 L (39.0-53.0) % Plt Count 288 (150-450) k/uL Comprehensive Metabolic Panel 06/19/17 Range/Units 07:49 Sodium 140 (137-145) mmol/L Potassium 3.6 (3.5-5.1) mmol/L Chloride 112 H (98-107) mmol/L Carbon Dioxide 19 L (22-30) mmol/L BUN 23 H (9-20) mg/dL Creatinine 1.53 H (0.66-1.25) mg/dL Glucose 96 (74-99) mg/dL Calcium 8.3 L (8.4-10.2) mg/dL Current Medications Generic Name Dose Route Start Last Admin Trade Name Freq PRN Reason Stop Dose Admin Acetaminophen 650 mg 06/14/17 17:05 Tylenol Tab PO Q6HR PRN Mild Pain or Fever > 100.5 Acetaminophen/Codeine Phosphate 0.5 each 06/15/17 10:53 06/18/17 20:33 Tylenol #3 PO 0.5 each Q4H PRN Administration Pain Amlodipine Besylate 10 mg 06/16/17 08:00 06/19/17 07:55 Norvasc PO 10 mg DAILY@0800 [facility] Administration Aspirin 81 mg 06/15/17 17:00 06/18/17 16:54 Aspirin PO 81 mg DAILY@1700 [facility] Administration Atorvastatin Calcium 10 mg 06/15/17 08:00 06/19/17 07:55 Lipitor PO 10 mg DAILY@0800 [facility] Administration Bisacodyl 10 mg 06/14/17 17:13 06/16/17 09:18 Dulcolax RECTAL 10 mg DAILY PRN Administration Constipation Budesonide/Formoterol Fumarate 2 puff 06/14/17 20:00 06/19/17 07:55 Symbicort 80-4.5 Mcg Inhaler INHALATION 2 puff RT-BID [facility] Administration Ceftriaxone Sodium 2,000 mg 06/15/17 22:00 06/19/17 07:56 Rocephin IVP 2,000 mg Q24HR [facility] Administration Collagenase 1 applic 06/15/17 13:45 06/19/17 07:57 Santyl TOPICAL 1 applic DAILY [facility] Administration Docusate Sodium 100 mg 06/15/17 08:00 06/19/17 07:55 Colace PO 100 mg BID@0800,1700 [facility] Administration Finasteride 5 mg 06/15/17 09:00 06/19/17 07:57 Proscar PO 5 mg DAILY [facility] Administration Gabapentin 200 mg 06/14/17 21:00 06/18/17 20:33 Neurontin PO 200 mg HS@2100 [facility] Administration Hydralazine HCl 75 mg 06/14/17 21:00 06/19/17 07:55 Apresoline PO 75 mg BID@0800,2100 [facility] Administration Metronidazole 500 mg/ IV 100 mls @ 100 mls/hr 06/15/17 16:00 06/19/17 07:56 Solution IVPB 100 mls/hr Q8HR [facility] Administration Dextrose/Sodium Chloride 1,000 mls @ 75 mls/hr 06/16/17 09:30 06/19/17 06:57 Dextrose 5%-Ns Iv Soln IV Not Given .[id number] [facility] Ferric Sodium Gluconate 125 mg 110 mls @ 100 mls/hr 06/17/17 14:00 06/19/17 09:25 / Sodium Chloride IVPB 06/19/17 23:59 100 mls/hr DAILY [facility] Administration Latanoprost 1 drops 06/15/17 08:00 06/19/17 07:55 Xalatan 0.005% BOTH EYES 1 drops DAILY@0800 [facility] Administration Levothyroxine Sodium 100 mcg 06/17/17 06:30 06/19/17 06:58 Synthroid PO 100 mcg DAILY@0630 [facility] Administration Lidocaine 1 patch 06/15/17 08:00 06/19/17 07:56 Lidoderm TOPICAL 1 patch DAILY@0800 [facility] Administration Magnesium Hydroxide 2,400 mg 06/14/17 17:13 Milk Of Magnesia PO DAILY PRN Constipation Morphine Sulfate 2 mg 06/16/17 09:10 06/16/17 17:26 Morphine Sulfate (Inj) IVP 2 mg Q4HR PRN Administration Pain Naloxone HCl 0.2 mg 06/14/17 17:05 Narcan IV Q2M PRN Opioid Reversal Pantoprazole Sodium 40 mg 06/15/17 09:00 06/19/17 07:57 Protonix IV 40 mg DAILY [facility] Administration Sertraline HCl 50 mg 06/15/17 08:00 06/19/17 07:56 Zoloft PO 50 mg DAILY@0800 [facility] Administration Sodium Biphosphate/Sodium Phosphate 133 ml 06/15/17 10:53 Fleet Adult RECTAL ONCE PRN Constipation Tamsulosin HCl 0.4 mg 06/14/17 21:00 06/18/17 20:33 Flomax PO 0.4 mg HS@2100 [facility] Administration Tramadol HCl 100 mg 06/14/17 17:13 06/16/17 09:02 Ultram PO 100 mg Q4HR PRN Administration Moderate Pain Intake and Output 06/18/17 06/19/17 06/19/17 21:59 06:59 14:59 Intake Total Output Total Balance Intake: IV Dextrose 5%-0.9% NaCl 1, 000 ml @ 75 mls/hr IV . [id number] [facility] Rx#:[id number] Sodium Ferric Gluconat- Sucrose 125 mg In Sodium Chloride 0.9% 100 ml @ 100 mls/hr IVPB DAILY [facility] Rx#:[id number] metroNIDAZOLE-NS PMX 500 mg In Saline 1 100ml.bag @ 100 mls/hr IVPB Q8HR [facility] Rx#:[id number] Output: Urine Other: Voiding Method 06/19/17 07:49 06/19/17 07:49
--- NOTE | 2017-06-19 15:16 | P.CRDCN ---
History of Present Illness History of present illness: Impression Elderly gentleman presenting with weakness no loss of consciousness and feeling cold AV node disease with intermittent A-V dissociation consistent with third degree heart block, transient and asymptomatic mostly sinus bradycardia with first- degree AV block TSH is high, hypothyroidism Known CAD status post coronary stenting Patient follows with Dr. Niels Sutton at [facility] but but finds it difficult to travel that far Preserved LV systolic function, LVH by recent 2-D echo Stage III chronic kidney disease, normal potassium Plan Stop metoprolol completely Treat hypothyroidism If needed the dose of hydralazine can be increased to 3 times a day for blood pressure control Avoid all AV rey blocking drugs and continue telemetry monitoring Patient will follow-up with Dr. William as an outpatient consider implantation of a loop monitor to monitor for transient intermittent third-degree heart block and bradycardia Past Medical History Past Medical History: Cancer, COPD, Eye Disorder, GERD/Reflux, Hearing Disorder / Deafness, Hyperlipidemia, Hypertension, Memory Impairment, Myocardial Infarction ([place]), Osteoarthritis ([place]), Prostate Disorder, Renal Disease, Skin Disorder, Thyroid Disorder Additional Past Medical History / Comment(s): macular degeneration, thyroid cancer, lung cancer with radiation, left heel ulcer Last Myocardial Infarction Date:: unknown History of Any Multi-Drug Resistant Organisms: None Reported Past Surgical History: Back Surgery, Heart Catheterization With Stent, Hernia Repair, Orthopedic Surgery Additional Past Surgical History / Comment(s): Fixation of fractured left femur , b/l hip replacement Past Anesthesia/Blood Transfusion Reactions: No Reported Reaction Date of Last Stent Placement:: unknown Past Psychological History: No Psychological Hx Reported Smoking Status: Former smoker Past Alcohol Use History: None Reported Past Drug Use History: None Reported - Past Family History Father Family Medical History: Myocardial Infarction ([place]) Mother Family Medical History: Cancer Medications and Allergies Home Medications Medication Instructions Recorded Confirmed Type Atorvastatin [Lipitor] 10 mg PO DAILY@0800 04/21/14 06/14/17 History Fluticasone/Salmeterol [Advair 1 puff INHALATION RT-BID@0800,2100 04/21/1406/14 History 250-50 Diskus] Metoprolol Tartrate [Lopressor] 50 mg PO DAILY@0800 04/21/14 06/14/17 History Sertraline [Zoloft] 50 mg PO DAILY@0800 04/21/14 06/14/17 History Tamsulosin [Flomax] 0.4 mg PO HS@209904/21/14 06/14/17 History amLODIPine [Norvasc] 10 mg PO DAILY@0800 04/21/14 06/14/17 History Aspirin EC [Ecotrin Low Dose] 81 mg PO DAILY@169911/07/16 06/14/17 History Lansoprazole [Prevacid] 30 mg PO HS@209911/07/16 06/14/17 History Latanoprost [Xalatan 0.005%] 1 drop BOTH EYES DAILY@79911/07/16 06/14/17 History Acetaminophen-Codeine 300-30mg 0.5 tab PO Q4H PRN 06/08/17 06/14/17 History [Tylenol #3] Amoxicillin 500 mg PO TID@0800,1400,199906/08/17 06/14/17 History Bisacodyl [Dulcolax] 10 mg RECTAL DAILY PRN 06/08/17 06/14/17 History Docusate [Colace] 100 mg PO BID@0800,1700 06/08/17 06/14/17 History Gabapentin [Neurontin] 200 mg PO HS@209906/08/17 06/14/17 History Glucerna Shake 1 can PO BID@0800,1700 06/08/17 06/14/17 History Lidocaine [Lidoderm 5% Patch] 1 patch TRANSDERM DAILY@0806/08/17 06/14/17 History Magnesium Hydroxide [Milk of 2,400 mg PO DAILY PRN 06/08/17 06/14/17 History Magnesia] Na Phos,M-B/Na Phos,Di-Ba [Fleet 133 ml RECTAL ONCE PRN 06/08/17 06/14/17 History Adult] hydrALAZINE HCL 75 mg PO BID@0800,209906/08/17 06/14/17 History traMADol HCL [Ultram] 100 mg PO Q4HR PRN 06/08/17 06/14/17 History Finasteride [Proscar] 5 mg PO DAILY 06/14/17 06/14/17 History Allergies Allergy/AdvReac Type Severity Reaction Status Date / Time codeine AdvReac Nausea & Verified 06/14/17 13:28 Vomiting Physical Exam Vitals: Vital Signs Temp Pulse Resp BP Pulse Ox 06/19/17 07:00 98.3 F 76 20 140/62 95 06/18/17 23:00 98.1 F 68 17 145/69 93 L 06/18/17 20:29 65 142/68 06/18/17 15:00 98.9 F 64 20 118/54 97 Intake and Output 06/19/17 06/19/17 06/19/17 06:59 14:59 22:59 Intake Total Output Total Balance Intake: IV Dextrose 5%-0.9% NaCl 1, 000 ml @ 75 mls/hr IV . [id number] [facility] Rx#:[id number] Output: Urine Other: Voiding Method Indwelling Catheter Results 06/19/17 07:49 06/19/17 07:49 CBC 06/19/17 Range/Units 07:49 WBC 6.0 (3.8-10.6) k/uL RBC 3.40 L (4.30-5.90) m/uL Hgb 10.0 L (13.0-17.5) gm/dL Hct 29.7 L (39.0-53.0) % Plt Count 288 (150-450) k/uL Comprehensive Metabolic Panel 06/19/17 Range/Units 07:49 Sodium 140 (137-145) mmol/L Potassium 3.6 (3.5-5.1) mmol/L Chloride 112 H (98-107) mmol/L Carbon Dioxide 19 L (22-30) mmol/L BUN 23 H (9-20) mg/dL Creatinine 1.53 H (0.66-1.25) mg/dL Glucose 96 (74-99) mg/dL Calcium 8.3 L (8.4-10.2) mg/dL Current Medications Generic Name Dose Route Start Last Admin Trade Name Freq PRN Reason Stop Dose Admin Acetaminophen 650 mg 06/14/17 17:05 Tylenol Tab PO Q6HR PRN Mild Pain or Fever > 100.5 Acetaminophen/Codeine Phosphate 0.5 each 06/15/17 10:53 06/18/17 20:33 Tylenol #3 PO 0.5 each Q4H PRN Administration Pain Amlodipine Besylate 10 mg 06/16/17 08:00 06/19/17 07:55 Norvasc PO 10 mg DAILY@0800 [facility] Administration Aspirin 81 mg 06/15/17 17:00 06/18/17 16:54 Aspirin PO 81 mg DAILY@1700 [facility] Administration Atorvastatin Calcium 10 mg 06/15/17 08:00 06/19/17 07:55 Lipitor PO 10 mg DAILY@0800 [facility] Administration Bisacodyl 10 mg 06/14/17 17:13 06/16/17 09:18 Dulcolax RECTAL 10 mg DAILY PRN Administration Constipation Budesonide/Formoterol Fumarate 2 puff 06/14/17 20:00 06/19/17 07:55 Symbicort 80-4.5 Mcg Inhaler INHALATION 2 puff RT-BID [facility] Administration Ceftriaxone Sodium 2,000 mg 06/15/17 22:00 06/19/17 07:56 Rocephin IVP 2,000 mg Q24HR [facility] Administration Collagenase 1 applic 06/15/17 13:45 06/19/17 07:57 Santyl TOPICAL 1 applic DAILY [facility] Administration Docusate Sodium 100 mg 06/15/17 08:00 06/19/17 07:55 Colace PO 100 mg BID@0800,1700 [facility] Administration Finasteride 5 mg 06/15/17 09:00 06/19/17 07:57 Proscar PO 5 mg DAILY [facility] Administration Gabapentin 200 mg 06/14/17 21:00 06/18/17 20:33 Neurontin PO 200 mg HS@2100 [facility] Administration Hydralazine HCl 75 mg 06/14/17 21:00 06/19/17 07:55 Apresoline PO 75 mg BID@0800,2100 [facility] Administration Metronidazole 500 mg/ IV 100 mls @ 100 mls/hr 06/15/17 16:00 06/19/17 07:56 Solution IVPB 100 mls/hr Q8HR [facility] Administration Dextrose/Sodium Chloride 1,000 mls @ 75 mls/hr 06/16/17 09:30 06/19/17 06:57 Dextrose 5%-Ns Iv Soln IV Not Given .[id number] [facility] Ferric Sodium Gluconate 125 mg 110 mls @ 100 mls/hr 06/17/17 14:00 06/19/17 09:25 / Sodium Chloride IVPB 06/19/17 23:59 100 mls/hr DAILY [facility] Administration Latanoprost 1 drops 06/15/17 08:00 06/19/17 07:55 Xalatan 0.005% BOTH EYES 1 drops DAILY@0800 [facility] Administration Levothyroxine Sodium 100 mcg 06/17/17 06:30 06/19/17 06:58 Synthroid PO 100 mcg DAILY@0630 [facility] Administration Lidocaine 1 patch 06/15/17 08:00 06/19/17 07:56 Lidoderm TOPICAL 1 patch DAILY@0800 [facility] Administration Magnesium Hydroxide 2,400 mg 06/14/17 17:13 Milk Of Magnesia PO DAILY PRN Constipation Morphine Sulfate 2 mg 06/16/17 09:10 06/16/17 17:26 Morphine Sulfate (Inj) IVP 2 mg Q4HR PRN Administration Pain Naloxone HCl 0.2 mg 06/14/17 17:05 Narcan IV Q2M PRN Opioid Reversal Pantoprazole Sodium 40 mg 06/15/17 09:00 06/19/17 07:57 Protonix IV 40 mg DAILY [facility] Administration Sertraline HCl 50 mg 06/15/17 08:00 06/19/17 07:56 Zoloft PO 50 mg DAILY@0800 [facility] Administration Sodium Biphosphate/Sodium Phosphate 133 ml 06/15/17 10:53 Fleet Adult RECTAL ONCE PRN Constipation Tamsulosin HCl 0.4 mg 06/14/17 21:00 06/18/17 20:33 Flomax PO 0.4 mg HS@2100 [facility] Administration Tramadol HCl 100 mg 06/14/17 17:13 06/16/17 09:02 Ultram PO 100 mg Q4HR PRN Administration Moderate Pain Intake and Output 06/19/17 06/19/17 06/19/17 06:59 14:59 22:59 Intake Total Output Total Balance Intake: IV Dextrose 5%-0.9% NaCl 1, 000 ml @ 75 mls/hr IV . [id number] [facility] Rx#:[id number] Output: Urine Other: Voiding Method Indwelling Catheter 06/19/17 07:49 06/19/17 07:49
[2017-06-19] MEDS: ASPIRIN 81 MG PO SCH (16:02)
[2017-06-19 17:21] LABS: Glucose,Whole Blood 138 mg/dL (75-99)
[2017-06-19] MEDS: Acetaminophen-Codeine 300-30mg TAB PO PRN (20:05)
[2017-06-19] MEDS: TAMSULOSIN 0.4 MG CAP.ER.24H PO SCH (20:07)
[2017-06-19] MEDS: GABAPENTIN 100 MG CAP PO SCH (20:07)
[2017-06-19 20:35] LABS: Glucose,Whole Blood 128 mg/dL (75-99)
--- NOTE | 2017-06-19 22:52 | P.PN ---
Subjective Progress Note Date: 06/19/17 81 years old male patient of Dr. Baez with past medical history of cancer status post thyroidectomy history of lung cancer status post radiation, history of COPD, diabetes, hyperlipidemia, hypertension, osteoarthritis, chronic kidney disease stage III presents in with altered mental status, abdominal discomfort for the past 2 days. Patient fractured his left femur status post intramedullary janessa on 05/06/2017 he was treated at [facility]. Strange catheter was placed during that admission for urinary retention and patient was discharged to care home. Patient continues to have problems with his Strange catheter including decreased urine output with urine retention cough more than a liter outlined on bladder scan despite having a Strange catheter. Patient was seen by who performed a cystoscopy with no urine output despite showing a liter on the bladder scan. Patient was sent to the ER from care home yesterday with complaints of abdominal discomfort associated with possible urinary retention as bladder scan did show more than 600. In the bladder in spite of having a Strange catheter in. Patient was examined by Dr. Solis this morning who felt the patient's catheter is functioning properly as detailed 5 mg the left ear. Overnight. On my evaluation this morning patient is hard of hearing, does document increased abdominal pain associated with pain in his left heel. Patient denies any fever , chills, change in bowel habits.he does feel constipated and had no bowel movement for the past 3 days . CBC suggestive WBC of 7.1, hemoglobin 8.7, creatinine 2.0, BUN/creatinine 34 which is patient's baseline, troponin 2 negative, increased CRP 139. Urinalysis suggestive of 1+ urine protein, leukocyte esterase, history of 14, WBC 6 with some hyaline cast. 4. Congestive soft tissue component to the posterior heel but no radial graphic changes suggestive of osteomyelitis. Significant findings also included hammertoes, osteoarthritis changes with calcaneal heel spurs. CT abdomen was positivefor acute colitis including the distal sigmoid and rectum with quadriplegia status wall thickening and surrounding his elevated d-dimer. Small foci of free air present along the inferior segment with free air in the left omentum suggesting secondary perforation. Large renal cyst present in the right. Cholelithiasis present. Moderate sized hiatal hernia. stat consult for surgery is placed. Patient initiated on levofloxacin adjusted to renal dosing along with Flagyl. Patient has high CRP concerning for left heel cellulitis, patient initiated on vancomycin. Dulcolax suppository ordered. 06/16 Today the patient was seen and evaluated. Patient noted to have a large ulcer on the left heel, surgery and infectious disease is on consult. Infectious disease recommends local wound care with Santyl followed by moist dressings along with heel protector. Patient will continue Flagyl and Rocephin added, Levaquin and vancomycin discontinued. X-ray did not suggest osteomyelitis. Patient plans a lot of heel pain, Morphine ordered for pain control. Patient did have an echocardiogram, shows mild left ventricular hypertrophy, ejection fraction between 55-60%, mild aortic regurgitation and mild aortic valve sclerosis. TSH >100, free T4 < 0.07, patient was started on Synthroid 100 Mcg. Nephrology is on consult for CKD stage III, Cr remains stable at 2.0, recommends to continue with IV fluids. 06/18: Patient is without any new complaints today, patient is tolerating a diet , no abdominal pain, nausea no vomiting, patient has left heel discomfort however he is not ambulatory to this leg, Dr. Montoya has been following 06/19: Overnight patient went into bradycardia, consults were made with cardiology, patient has third degree AV block, metoprolol has been discontinued , Dr. 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 [id number] ZAIDA Rx#:[id number] Sodium Ferric Gluconat- Sucrose 125 mg In Sodium Chloride 0.9% 100 ml @ 100 mls/hr IVPB DAILY ZAIDA Rx#:[id number] metroNIDAZOLE-NS PMX 500 mg In Saline 1 100ml.bag @ 100 mls/hr IVPB Q8HR ZAIDA Rx#:[id number] Output: Urine Other: Voiding Method Indwelling Catheter - Constitutional General appearance: Present: cooperative, no acute distress, obese - EENT Eyes: Present: anicteric sclerae, EOMI, PERRLA ENT: Present: hard of hearing - Respiratory Respiratory: bilateral: rhonchi, negative: CTA, wheezing, prolonged expiration, prolonged inspiration, other - Cardiovascular Rhythm: regular Heart sounds: normal: S1 Abnormal Heart Sounds: Absent: systolic murmur, diastolic murmur, rub, S3 Gallop , S4 Gallop, click, other - Gastrointestinal General gastrointestinal: Present: soft - Integumentary Integumentary: Present: decreased turgor, normal - Musculoskeletal Musculoskeletal: Present: generalized weakness, strength equal bilaterally - Psychiatric Psychiatric: Present: A&O x's 3, appropriate affect - Labs CBC & Chem 7: 06/19/17 07:49 06/19/17 07:49 Labs: Abnormal Lab Results - Last 24 Hours (Table) 06/18/17 06/18/17 06/18/17 Range/Units 11:43 17:21 20:26 RBC (4.30-5.90) m/uL Hgb (13.0-17.5) gm/dL Hct (39.0-53.0) % RDW (11.5-15.5) % Metamyelocytes # (Man) (0) k/uL Myelocytes # (Manual) (0) k/uL Chloride (98-107) mmol/L Carbon Dioxide (22-30) mmol/L BUN (9-20) mg/dL Creatinine (0.66-1.25) mg/dL POC Glucose (mg/dL) 124 H 116 H 115 H (75-99) mg/dL Calcium (8.4-10.2) mg/dL 06/19/17 06/19/17 06/19/17 Range/Units 06:47 07:49 07:49 RBC 3.40 L (4.30-5.90) m/uL Hgb 10.0 L (13.0-17.5) gm/dL Hct 29.7 L (39.0-53.0) % RDW 15.7 H (11.5-15.5) % Metamyelocytes # (Man) 0.48 H (0) k/uL Myelocytes # (Manual) 0.18 H (0) k/uL Chloride 112 H (98-107) mmol/L Carbon Dioxide 19 L (22-30) mmol/L BUN 23 H (9-20) mg/dL Creatinine 1.53 H (0.66-1.25) mg/dL POC Glucose (mg/dL) 102 H (75-99) mg/dL Calcium 8.3 L (8.4-10.2) mg/dL Assessment and Plan Plan: 1 acute abdominal pain secondary to left-sided colitis, with possible perforation . Continue levofloxacin and Flagyl. Continue IV fluids at 80 mL per hour. Lactic acid ordered. Surgery consult placed, conservative management. regular diet . Patient condition is guarded. Dulcolax suppository given. Ordered for fleet edema given. 2 left heel ulcers stage 3, no cellulitis Feet is negative for osteomyelitis . Elevated CRP 139.[address] alan consulted. 3 urinary retention. Continue Strange catheter. It is possible that bladder scan was reporting bowel gas as urine. 4 history of thyroid cancer status post thyroidectomy patient is not on levothyroxine prior to admission,. TSH ordered and is over 100,000, levothyroxine 100 g started, patient would need suppressed dose secondary to known history of thyroid cancer, follow up tsH free T4 in 4 weeks needs very close supervision 5 lung cancer status post radiation, stable. Not requiring any oxygen at this point 6Uncontrolled hypothyroidism, TSH is over 100,000 untreated prior to admission, levothyroxine 100 g daily started 7 acute kidney injury likely prerenal on chronic kidney disease stage III baseline creatinine 2. Creatinine improved today Continue fluids. Nephrology consulted 8 history of hypertension continue hydralazine 75 twice a day, Norvasc 10 mg daily 9 history of myocardial infarction status post cardiac stent not known what year. Patient is unable to provide any history. Hold aspirin for possible surgery. Continue atorvastatin 10 mg daily, metoprolol 50 mg daily 10 COPD continue Advair 1 puff twice a day. Continue Duoneb as neneded 11 GERD/reflux with hiatal hernia moderate size continue lansoprazole 30 mg daily at bedtime 12 acute chest pain troponin [address] or T-wave changes on the EKG. CK slightly elevated stop echo ordered. 13 DVT prophylaxis continue SCDs. Hold heparin 4 GI prophylaxis continue lansoprazole 30 mg daily 15 patient is a full code
--- NOTE | 2017-06-19 22:55 | P.PN ---
Subjective Progress Note Date: 06/18/17 81 years old male patient of Dr. Baez with past medical history of cancer status post thyroidectomy history of lung cancer status post radiation, history of COPD, diabetes, hyperlipidemia, hypertension, osteoarthritis, chronic kidney disease stage III presents in with altered mental status, abdominal discomfort for the past 2 days. Patient fractured his left femur status post intramedullary janessa on 05/06/2017 he was treated at [facility]. Strange catheter was placed during that admission for urinary retention and [facility]. Patient continues to have problems with his Strange catheter including decreased urine output with urine retention cough more than a liter outlined on bladder scan despite having a Strange catheter. Patient was seen by who performed a cystoscopy with no urine output despite showing a liter on the bladder scan. Patient was [facility] the ER [facility] yesterday with complaints of abdominal discomfort associated with possible urinary retention as bladder scan did show more than 600. In the bladder in spite of having a Strange catheter in. Patient was examined by Dr. Solis this morning who felt the patient's catheter is functioning properly as detailed 5 mg the left ear. Overnight. On my evaluation this morning patient is hard of hearing, does document increased abdominal pain associated with pain in his left heel. Patient denies any fever , chills, change in bowel habits.he does feel constipated and had no bowel movement for the past 3 days . CBC suggestive WBC of 7.1, hemoglobin 8.7, creatinine 2.0, BUN/creatinine 34 which is patient's baseline, troponin 2 negative, increased CRP 139. Urinalysis suggestive of 1+ urine protein, leukocyte esterase, history of 14, WBC 6 with some hyaline cast. 4. Congestive soft tissue component to the posterior heel but no radial graphic changes suggestive of osteomyelitis. Significant findings also included hammertoes, osteoarthritis changes with calcaneal heel spurs. CT abdomen was positivefor acute colitis including the distal sigmoid and rectum with quadriplegia status wall thickening and surrounding his elevated d-dimer. Small foci of free air present along the inferior segment with free air in the left omentum suggesting secondary perforation. Large renal cyst present in the right. Cholelithiasis present. Moderate sized hiatal hernia. stat consult for surgery is placed. Patient initiated on levofloxacin adjusted to renal dosing along with Flagyl. Patient has high CRP concerning for left heel cellulitis, patient initiated on vancomycin. Dulcolax suppository ordered. 06/16 Today the patient was seen and evaluated. Patient noted to have a large ulcer on the left heel, surgery and infectious disease is on consult. Infectious disease recommends local wound care with Santyl followed by moist dressings along with heel protector. Patient will continue Flagyl and Rocephin added, Levaquin and vancomycin discontinued. X-ray did not suggest osteomyelitis. Patient plans a lot of heel pain, Morphine ordered for pain control. Patient did have an echocardiogram, shows mild left ventricular hypertrophy, ejection fraction between 55-60%, mild aortic regurgitation and mild aortic valve sclerosis. TSH >100, free T4 < 0.07, patient was started on Synthroid 100 Mcg. Nephrology is on consult for CKD stage III, Cr remains stable at 2.0, recommends to continue with IV fluids. 06/18: Patient is without any new complaints today, patient is tolerating a diet , no abdominal pain, nausea no vomiting, patient has left heel discomfort however he is not ambulatory to this leg, Dr. Montoya has been following Objective - Vital Signs Vital signs: Vital Signs Temp 99.6 F 06/18/17 07:00 Pulse 77 06/18/17 07:00 Resp 20 06/18/17 07:00 BP 144/75 06/18/17 07:00 Pulse Ox 93 L 06/18/17 07:00 Intake & Output 06/17/17 06/18/17 06/18/17 18:59 06:59 18:59 Intake Total 0 395 Output Total 900 Balance 0 -505 Weight 84.5 kg Intake: IV 395 Dextrose 5%-0.9% NaCl 1, 295 000 ml @ 75 mls/hr IV . [id number] ZAIDA Rx#:[id number] metroNIDAZOLE-NS PMX 500 100 mg In Saline 1 100ml.bag @ 100 mls/hr IVPB Q8HR ZAIDA Rx#:[id number] Oral 0 Output: Urine 900 Other: Voiding Method Indwelling Catheter Indwelling Catheter - Labs CBC & Chem 7: 06/19/17 07:49 06/19/17 07:49 Labs: Abnormal Lab Results - Last 24 Hours (Table) 06/17/17 06/17/17 06/17/17 Range/Units 11:41 16:49 20:01 POC Glucose (mg/dL) 141 H 119 H 125 H (75-99) mg/dL 06/18/17 Range/Units 06:51 POC Glucose (mg/dL) 113 H (75-99) mg/dL Assessment and Plan Plan: #1 acute abdominal pain secondary to left-sided colitis, with possible perforation . Continue levofloxacin and Flagyl. Continue IV fluids at 80 mL per hour. Lactic acid ordered. Surgery consult placed, conservative management. regular diet . Patient condition is guarded. Dulcolax suppository given. Ordered for fleet edema given. #2 left heel ulcers stage 3, no cellulitis Feet is negative for osteomyelitis . Elevated CRP 139.[address] alan consulted. #3 urinary retention. Continue Strange catheter. It is possible that bladder scan was reporting bowel gas as urine. #4 history of thyroid cancer status post thyroidectomy TSH ordered Uncontrolled hypothyroidism, TSH is over 100,000 untreated prior to admission, levothyroxine 100 g daily started #5 lung cancer status post radiation, stable. Not requiring any oxygen at this point #6 acute kidney injury likely prerenal on chronic kidney disease stage III baseline creatinine 2. Creatinine improved today Continue fluids. Nephrology consulted #7 history of hyperlipidemia #8 history of hypertension continue hydralazine 75 twice a day, Norvasc 10 mg daily #9 history of myocardial infarction status post cardiac stent not known what year. Patient is unable to provide any history. Hold aspirin for possible surgery. Continue atorvastatin 10 mg daily, metoprolol 50 mg daily #10 COPD continue Advair 1 puff twice a day. Continue Duoneb as neneded #11 GERD/reflux with hiatal hernia moderate size continue lansoprazole 30 mg daily at bedtime #12 acute chest pain troponin [address] or T-wave changes on the EKG. CK slightly elevated stop echo ordered. #13 DVT prophylaxis continue SCDs. Hold heparin #14 GI prophylaxis continue lansoprazole 30 mg daily #15 patient is a full code
--- NOTE | 2017-06-20 05:38 | PN ---
PROGRESS NOTE DATE OF SERVICE: 06/19/2017. REASON FOR FOLLOWUP: 1. Possible perforated diverticulitis. 2. Left heel pressure ulcer. INTERVAL HISTORY: The patient is afebrile. He is breathing comfortably. Pain to the left heel is currently controlled. Denies having any chest pain, shortness of breath or cough. No abdominal pain. No nausea, vomiting. EXAMINATION: Blood pressure 124/52 with a pulse of 82, temperature of 98. He is 94% on 2 L nasal cannula. General description is an elderly male lying in bed in no distress. Respiratory system unlabored breathing. Clear to auscultation anteriorly. Heart S1, S2. Regular rate and rhythm. Abdomen soft, no tenderness. No guarding. No rigidity. Left heel is currently dressed. No obvious drainage on the dressing. LABS: BUN of 10, creatinine 0.60, hemoglobin is 10 with white count 6.0, BUN of 23, creatinine is 1.53. DIAGNOSTIC IMPRESSION AND PLAN: 1. Patient with left heel infected sore left heel pressure ulcer stage III. No cellulitis. Local wound care to continue with Santyl followed by moist dressing and keep the area off the pressure. 2. Patient with possible perforated diverticulitis with no drainable abscess. Currently on Zosyn and Flagyl. oral Flagyl for another 10 days. The patient continues to improve. Continue supportive care condition. MMODL / IJN: [id number] /
[2017-06-20] MEDS: LEVOTHYROXINE 100 MCG TAB PO SCH (06:06)
[2017-06-20 07:33] LABS: Glucose,Whole Blood 100 mg/dL (75-99)
[2017-06-20] MEDS: SYMBICORT 80-4.5 MCG INHALER INHALATION SCH (08:08)
[2017-06-20] MEDS: amLODIPine 10 MG TAB PO SCH (08:08)
[2017-06-20] MEDS: ATORVASTATIN 10 MG TAB PO SCH (08:08)
[2017-06-20] MEDS: hydrALAZINE HCL 25 MG TAB PO SCH (08:09)
[2017-06-20] MEDS: DOCUSATE 100 MG CAP PO SCH (08:09)
[2017-06-20] MEDS: LIDOCAINE 5% PATCH TOPICAL SCH (08:10)
[2017-06-20] MEDS: LATANOPROST 0.005% OPHTH DROPS 2.5 ML BTL BOTH EYES SCH (08:10)
[2017-06-20] MEDS: SERTRALINE 50 MG TAB PO SCH (08:11)
[2017-06-20] MEDS: PANTOPRAZOLE 40 MG/10 ML VIAL IV SCH (08:11)
[2017-06-20 08:12] LABS: Anisocytosis Slight; Basophils % (A) 1 %; Eosinophils # (A) 0.1 k/uL (0-0.7); Eosinophils % (A) 2 %; HCT 31.6 % (39.0-53.0); HGB 9.8 gm/dL (13.0-17.5); Hypochromasia Slight; Lymphocytes # (A) 0.9 k/uL (1.0-4.8); Lymphocytes % (A) 12 %; MCH 27.4 pg (25.0-35.0); MCHC 31.1 g/dL (31.0-37.0); MCV 88.1 fL (80.0-100.0); Monocytes # (A) 0.4 k/uL (0-1.0); Monocytes % (A) 6 %; Neutrophils # (A) 5.6 k/uL (1.3-7.7); Neutrophils % (A) 79 %; Platelet Count 300 k/uL (150-450); RBC 3.59 m/uL (4.30-5.90); RDW 16.1 % (11.5-15.5); WBC 7.1 k/uL (3.8-10.6)
[2017-06-20] MEDS: FINASTERIDE 5 MG TAB PO SCH (08:12)
[2017-06-20 08:41] LABS: Calcium 8.4 mg/dL (8.4-10.2); Potassium 3.6 mmol/L (3.5-5.1)
[2017-06-20 08:53] VITALS: BP 133/64; PULSE 83; RESP 18; TEMP 98.6
[2017-06-20] MEDS: metroNIDAZOLE-NS PMX 500 MG in SALINE 1 100ML.BAG IVPB SCH (09:19)
[2017-06-20] MEDS: cefTRIAXone IN SWFI 2,000 MG/20 ML SYRINGE IVP SCH (09:19)
[2017-06-20] MEDS: DEXTROSE 5%-0.9% NACL 1,000 ML IV SCH (09:20)
[2017-06-20] MEDS: COLLAGENASE 250 UNIT/GM OINTMENT 30 GM TUBE TOPICAL SCH (09:24)
[2017-06-20 11:53] LABS: Glucose,Whole Blood 139 mg/dL (75-99)
--- NOTE | 2017-06-20 13:42 | P.DS ---
Providers Date of admission: 06/14/17 17:06 Expected date of discharge: 06/20/17 Attending physician: Dajuan Lackey MD Consults: 06/14/17 17:05 Consult Physician Stat Consulting Provider: Paulo Solis Consult Reason/Comments: urinary retention Do you want consulting provider notified?: Already Contacted Consult Physician Stat Consulting Provider: Rosemary Martinez Consult Reason/Comments: renal failure, chronic Do you want consulting provider notified?: Yes 06/15/17 10:53 Consult Physician Routine Consulting Provider: Kris Rodriguez Consult Reason/Comments: left heel ulcer Do you want consulting provider notified?: Yes 06/15/17 14:03 Consult Physician Stat Consulting Provider: Noé Cuba Consult Reason/Comments: colitis with free air Do you want consulting provider notified?: Yes 06/18/17 15:14 Consult Physician Routine Consulting Provider: Prosper Jewell Consult Reason/Comments: adina cardia Do you want consulting provider notified?: Yes Primary care physician: Neo Nestor [facility] Course: 81 years old male patient of Dr. Baez with past medical history of cancer status post thyroidectomy history of lung cancer status post radiation, history of COPD, diabetes, hyperlipidemia, hypertension, osteoarthritis, chronic kidney disease stage III presents in with altered mental status, abdominal discomfort for the past 2 days. Patient fractured his left femur status post intramedullary janessa on 05/06/2017 he was treated at [facility]. Strange catheter was placed during that admission for urinary retention and patient was discharged to detention. Patient continues to have problems with his Strange catheter including decreased urine output with urine retention cough more than a liter outlined on bladder scan despite having a Strange catheter. Patient was seen by who performed a cystoscopy with no urine output despite showing a liter on the bladder scan. Patient was sent to the ER from detention yesterday with complaints of abdominal discomfort associated with possible urinary retention as bladder scan did show more than 600. In the bladder in spite of having a Strange catheter in. Patient was examined by Dr. Solis this morning who felt the patient's catheter is functioning properly as detailed 5 mg the left ear. Overnight. On my evaluation this morning patient is hard of hearing, does document increased abdominal pain associated with pain in his left heel. Patient denies any fever , chills, change in bowel habits.he does feel constipated and had no bowel movement for the past 3 days . CBC suggestive WBC of 7.1, hemoglobin 8.7, creatinine 2.0, BUN/creatinine 34 which is patient's baseline, troponin 2 negative, increased CRP 139. Urinalysis suggestive of 1+ urine protein, leukocyte esterase, history of 14, WBC 6 with some hyaline cast. 4. Congestive soft tissue component to the posterior heel but no radial graphic changes suggestive of osteomyelitis. Significant findings also included hammertoes, osteoarthritis changes with calcaneal heel spurs. CT abdomen was positivefor acute colitis including the distal sigmoid and rectum with quadriplegia status wall thickening and surrounding his elevated d-dimer. Small foci of free air present along the inferior segment with free air in the left omentum suggesting secondary perforation. Large renal cyst present in the right. Cholelithiasis present. Moderate sized hiatal hernia. stat consult for surgery is placed. Patient initiated on levofloxacin adjusted to renal dosing along with Flagyl. Patient has high CRP concerning for left heel cellulitis, patient initiated on vancomycin. Dulcolax suppository ordered. 06/16 Today the patient was seen and evaluated. Patient noted to have a large ulcer on the left heel, surgery and infectious disease is on consult. Infectious disease recommends local wound care with Santyl followed by moist dressings along with heel protector. Patient will continue Flagyl and Rocephin added, Levaquin and vancomycin discontinued. X-ray did not suggest osteomyelitis. Patient plans a lot of heel pain, Morphine ordered for pain control. Patient did have an echocardiogram, shows mild left ventricular hypertrophy, ejection fraction between 55-60%, mild aortic regurgitation and mild aortic valve sclerosis. TSH >100, free T4 < 0.07, patient was started on Synthroid 100 Mcg. Nephrology is on consult for CKD stage III, Cr remains stable at 2.0, recommends to continue with IV fluids. 06/18: Patient is without any new complaints today, patient is tolerating a diet , no abdominal pain, nausea no vomiting, patient has left heel discomfort however he is not ambulatory to this leg, Dr. Montoya has been following 06/19: Overnight patient went into bradycardia, consults were made with cardiology, patient has third degree AV block, metoprolol has been discontinued , Dr. jewell to see as an outpatient for Loop monitor per his recommendation. 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 He will have a follow up with Dr. Rodriguez for his foot ulcer and continue with wound care. For first degree AV block, it is recommended to follow up with Dr. Jewell as outpatient for possible implantation of a loop monitor. Also will follow up with Dr. Cabrera for his urinary retention. He will continue on Flagyl and Cipro for microperforation of the colon. Will need TSH redrawn in 4 weeks, CBC in 1 week , and peripheral smear in 1 month. Discharge Diagnosis 1 acute abdominal pain secondary to left-sided colitis, with microperforation. Continue Cipro and Flagyl. 2 left heel ulcers stage 3, no cellulitis. Follow up with Dr. Rodriguez and wound care. 3 urinary retention. Continue Strange catheter follow up with Dr. Cabrera. 4 history of thyroid cancer status post thyroidectomy. continue levothyroxine and recheck TSH in 4 weeks 5 lung cancer status post radiation, stable. 6 Uncontrolled hypothyroidism, levothyroxine 100 g daily started 7 acute kidney injury likely prerenal on chronic kidney disease stage III baseline creatinine 2. Monitor. 8 history of hypertension 9 history of myocardial infarction status post cardiac stent not known what year. 10 COPD 11 GERD/reflux with hiatal hernia 12 sinus bradycardia with first-degree AV block. Follow-up with Dr. William for possible loop monitor The above impression and plan of care have been discussed and directed by signing physician. Nanette Khan nurse practitioner acting as scribe for signing physician. Patient Condition at Discharge: Fair Plan - Discharge Summary Discharge Rx Participant: No New Discharge Prescriptions: New Ciprofloxacin HCl 500 mg PO BID #20 tablet Collagenase [Santyl] 1 applic TOPICAL DAILY applic Levothyroxine Sodium [Synthroid] 100 mcg PO DAILY@0630 #0 tab metroNIDAZOLE [Flagyl] 500 mg PO TID #30 tab traMADol HCl [Ultram] 100 mg PO Q4HR PRN #120 tab PRN Reason: Moderate Pain Continue Fluticasone/Salmeterol [Advair 250-50 Diskus] 1 puff INHALATION RT-BID@0800, 2100 Sertraline [Zoloft] 50 mg PO DAILY@0800 amLODIPine [Norvasc] 10 mg PO DAILY@0800 Tamsulosin [Flomax] 0.4 mg PO HS@2100 Atorvastatin [Lipitor] 10 mg PO DAILY@0800 Metoprolol Tartrate [Lopressor] 50 mg PO DAILY@0800 Lansoprazole [Prevacid] 30 mg PO HS@2100 Latanoprost [Xalatan 0.005%] 1 drop BOTH EYES DAILY@0800 Aspirin EC [Ecotrin Low Dose] 81 mg PO DAILY@1700 Acetaminophen-Codeine 300-30mg [Tylenol w/codeine #3] 0.5 tab PO Q4H PRN PRN Reason: Pain traMADol HCL [Ultram] 100 mg PO Q4HR PRN PRN Reason: Pain Na Phos,M-B/Na Phos,Di-Ba [Fleet Adult] 133 ml RECTAL ONCE PRN PRN Reason: Constipation Magnesium Hydroxide [Milk of Magnesia] 2,400 mg PO DAILY PRN PRN Reason: Constipation Bisacodyl [Dulcolax] 10 mg RECTAL DAILY PRN PRN Reason: Constipation hydrALAZINE HCL 75 mg PO BID@0800,2100 Glucerna Shake 1 can PO BID@0800,1700 Docusate [Colace] 100 mg PO BID@0800,1700 Gabapentin [Neurontin] 200 mg PO HS@2100 Lidocaine [Lidoderm 5% Patch] 1 patch TRANSDERM DAILY@0800 Finasteride [Proscar] 5 mg PO DAILY Discontinued Amoxicillin 500 mg PO TID@0800,1400,1999 Discharge Medication List Atorvastatin [Lipitor] 10 mg PO DAILY@0800 04/21/14 [History] Fluticasone/Salmeterol [Advair 250-50 Diskus] 1 puff INHALATION RT-BID@0800, 209904/21/14 [History] Metoprolol Tartrate [Lopressor] 50 mg PO DAILY@0800 04/21/14 [History] Sertraline [Zoloft] 50 mg PO DAILY@0804/21/14 [History] Tamsulosin [Flomax] 0.4 mg PO HS@209904/21/14 [History] amLODIPine [Norvasc] 10 mg PO DAILY@0800 04/21/14 [History] Aspirin EC [Ecotrin Low Dose] 81 mg PO DAILY@1700 11/07/16 [History] Lansoprazole [Prevacid] 30 mg PO HS@2100 07/30/17 [History] Latanoprost [Xalatan 0.005%] 1 drop BOTH EYES DAILY@0800 11/07/16 [History] Acetaminophen-Codeine 300-30mg [Tylenol w/codeine #3] 0.5 tab PO Q4H PRN [History] Bisacodyl [Dulcolax] 10 mg RECTAL DAILY PRN 06/08/17 [History] Docusate [Colace] 100 mg PO BID@0800,1700 06/08/17 [History] Gabapentin [Neurontin] 200 mg PO HS@209906/08/17 [History] Glucerna Shake 1 can PO BID@0800,1700 06/08/17 [History] Lidocaine [Lidoderm 5% Patch] 1 patch TRANSDERM DAILY@0806/08/17 [History] Magnesium Hydroxide [Milk of Magnesia] 2,400 mg PO DAILY PRN 06/08/17 [History] Na Phos,M-B/Na Phos,Di-Ba [Fleet Adult] 133 ml RECTAL ONCE PRN 06/08/17 [History ] hydrALAZINE HCL 75 mg PO BID@0800,209906/08/17 [History] traMADol HCL [Ultram] 100 mg PO Q4HR PRN 06/08/17 [History] Finasteride [Proscar] 5 mg PO DAILY 06/14/17 [History] Ciprofloxacin HCl 500 mg PO BID #20 tablet 06/20/17 [Rx] Collagenase [Santyl] 1 applic TOPICAL DAILY applic 06/20/17 [Rx] Levothyroxine Sodium [Synthroid] 100 mcg PO DAILY@0630 #0 tab 06/20/17 [Rx] metroNIDAZOLE [Flagyl] 500 mg PO TID #30 tab 06/20/17 [Rx] traMADol HCl [Ultram] 100 mg PO Q4HR PRN #120 tab 06/20/17 [Rx] Follow up Appointment(s)/Referral(s): Neo Baez MD [Primary Care Provider] - 1-2 days Discharge Disposition: TRANSFER TO SNF/F
--- NOTE | 2017-06-20 15:34 | P.PN ---
Subjective Progress Note Date: 06/20/17 Principal diagnosis: Colon Microperforation Patient doing well today. Denies abdominal pain. Currently transferred back to rehab is underway. Tolerating diet. Objective - Vital Signs Vital signs: Vital Signs Temp 98.6 F 06/20/17 07:00 Pulse 83 06/20/17 08:00 Resp 18 06/20/17 08:00 BP 133/64 06/20/17 07:00 Pulse Ox 93 L 06/20/17 07:00 Intake & Output 06/19/17 06/20/17 06/20/17 18:59 06:59 18:59 Intake Total 300 35 820 Output Total 450 1000 Balance 300 -415 -180 Weight 84.5 kg Intake: IV 300 35 140 Dextrose 5%-0.9% NaCl 1, 35 40 000 ml @ 75 mls/hr IV . [id number] ZIADA Rx#:[id number] Sodium Ferric Gluconat- 100 Sucrose 125 mg In Sodium Chloride 0.9% 100 ml @ 100 mls/hr IVPB DAILY ZAIDA Rx#:[id number] metroNIDAZOLE-NS PMX 500 200 100 mg In Saline 1 100ml.bag @ 100 mls/hr IVPB Q8HR ZAIDA Rx#:[id number] Oral 680 Output: Urine 450 1000 Uretheral (Strange) 450 1000 Other: Voiding Method Indwelling Catheter Indwelling Catheter Indwelling Catheter # Voids 0 - Exam Abdomen: Soft, nontender, nondistended - Labs CBC & Chem 7: 06/20/17 07:34 06/20/17 07:34 Labs: Abnormal Lab Results - Last 24 Hours (Table) 06/19/17 06/19/17 06/20/17 Range/Units 17:18 20:28 07:23 RBC (4.30-5.90) m/uL Hgb (13.0-17.5) gm/dL Hct (39.0-53.0) % RDW (11.5-15.5) % Lymphocytes # (1.0-4.8) k/uL Chloride (98-107) mmol/L Carbon Dioxide (22-30) mmol/L BUN (9-20) mg/dL Creatinine (0.66-1.25) mg/dL POC Glucose (mg/dL) 138 H 128 H 100 H (75-99) mg/dL 06/20/17 06/20/17 06/20/17 Range/Units 07:34 07:34 11:30 RBC 3.59 L (4.30-5.90) m/uL Hgb 9.8 L (13.0-17.5) gm/dL Hct 31.6 L (39.0-53.0) % RDW 16.1 H (11.5-15.5) % Lymphocytes # 0.9 L (1.0-4.8) k/uL Chloride 112 H (98-107) mmol/L Carbon Dioxide 20 L (22-30) mmol/L BUN 28 H (9-20) mg/dL Creatinine 1.60 H (0.66-1.25) mg/dL POC Glucose (mg/dL) 139 H (75-99) mg/dL Assessment and Plan (1) Colitis presumed to be due to infection Narrative/Plan: Continue low fiber diet post discharge. Continue antibiotics as prescribed. Options of follow-up CAT scan was reviewed with the family and at least at this time we'll continue close observation clinically. Current Visit: Yes Status: Acute Code(s): K52.9 - NONINFECTIVE GASTROENTERITIS AND COLITIS, UNSPECIFIED SNOMED Code(s): 38185858
--- NOTE | 2017-06-20 22:15 | PN ---
PROGRESS NOTE DATE OF SERVICE: 06/20/2017 REASON FOR FOLLOW UP: 1. Diverticulitis with perforation. 2. Left heel pressure ulcer stage III. INTERVAL HISTORY: The patient was seen on rounds this morning. The patient has been afebrile, breathing comfortably. Pain to the left heel is currently improved. No nausea, no vomiting. No abdominal pain and no diarrhea. EXAMINATION: Blood pressure 133/64 with a pulse of 83, temperature of 98.6. He is 93% on 2 L nasal cannula. General description is an elderly male lying in bed in no distress. Respiratory system unlabored breathing. Clear to auscultation anteriorly. Heart S1, S2. Regular rate and rhythm. Abdomen: Soft, no tenderness. Left heel wound with soft tissue no surrounding cellulitis. LABS: Hemoglobin 9.8, white count 7.2, BUN of 28, creatinine 1.0. DIAGNOSTIC IMPRESSION AND PLAN: 1. Patient with possible diverticulitis with perforation. Overall improvement on the Rocephin and Flagyl. Plan to finish therapy with p.o. Cipro and Flagyl for another 7 to 10 days. 2. Patient with left heel pressure ulcer stage III local wound care with Santyl followed by moist dressing, keep the area off the pressure. MMODL / IJN: [id number] /
--- NOTE | 2017-06-21 21:25 | PN ---
PROGRESS NOTE Patient is seen for followup for acute kidney injury secondary to urine retention and prerenal state. The patient is maintained with a Strange catheter. He is doing very well. There are plans for possible discharge today. EXAMINATION: Blood pressure is 133/64, heart rate 83 per minute. Patient is afebrile. HEART: S1, S2. LUNGS: Bilateral breath sounds are heard. Abdomen is soft, nontender. Lower extremities show no significant edema. Left foot is wrapped. LABS: Reveal serum creatinine 1.6, sodium 140, potassium 3.6, BUN 28. Hemoglobin 9.8 g/dL. ASSESSMENT: 1. Acute kidney injury secondary to urine retention and prerenal state, currently improving. The patient remains with indwelling Strange catheter with which he will be discharged as well. 2. Chronic kidney disease, [employer] 3B to 4 with creatinine baseline about 1.7-1.8 mg/dL as of September of 2016 secondary to nephrosclerosis and diabetic nephropathy. 3. Severe hypothyroidism with TSH more than 100 started on supplementation. 4. Microperforation noted on CT scan. Clinically, no evidence of acute abdomen, status post evaluation by General Surgery. No plans for intervention. 5. Left heel ulcer being followed by Infectious Disease, maintained on Rocephin, Cipro and amoxicillin was also given. 6. Iron deficiency, status post IV iron. PLAN: Continue with indwelling Strange catheter. Monitor labs as outpatient post discharge. MMODL / IJN: [id number] /
== END 2017-06-20 16:05 | DRG 385 ==
LOC: EC 13:12 → 6SEL 17:06 → 5MS5E 06-17 16:23
PROVIDERS: ADMIT Internal Medicine; ATTEND Internal Medicine
DX: K51.518 Left sided colitis with other complication (principal); L89.623 Pressure ulcer of left heel, stage 3; I44.2 Atrioventricular block, complete; N17.9 Acute kidney failure, unspecified; S72.92XA Unspecified fracture of left femur, initial encounter for closed fracture; E11.21 Type 2 diabetes mellitus with diabetic nephropathy; E11.22 Type 2 diabetes mellitus with diabetic chronic kidney disease; I45.89 Other specified conduction disorders; N18.3 Chronic kidney disease, stage 3 (moderate); J98.11 Atelectasis; E11.621 Type 2 diabetes mellitus with foot ulcer; D64.9 Anemia, unspecified; E78.5 Hyperlipidemia, unspecified; E86.0 Dehydration; E89.0 Postprocedural hypothyroidism; H35.30 Unspecified macular degeneration; H91.90 Unspecified hearing loss, unspecified ear; I12.9 Hypertensive chronic kidney disease with stage 1 through stage 4 chronic kidney disease, or unspecified chronic kidney disease; I25.10 Atherosclerotic heart disease of native coronary artery without angina pectoris; I25.2 Old myocardial infarction; I35.1 Nonrheumatic aortic (valve) insufficiency; J44.9 Chronic obstructive pulmonary disease, unspecified; K21.9 Gastro-esophageal reflux disease without esophagitis; K44.9 Diaphragmatic hernia without obstruction or gangrene; K80.20 Calculus of gallbladder without cholecystitis without obstruction; M19.90 Unspecified osteoarthritis, unspecified site; M77.30 Calcaneal spur, unspecified foot; N28.1 Cyst of kidney, acquired; N40.1 Benign prostatic hyperplasia with lower urinary tract symptoms; R33.8 Other retention of urine; Z79.82 Long term (current) use of aspirin; Z79.899 Other long term (current) drug therapy; Z80.9 Family history of malignant neoplasm, unspecified; Z82.49 Family history of ischemic heart disease and other diseases of the circulatory system; Z85.118 Personal history of other malignant neoplasm of bronchus and lung; Z85.850 Personal history of malignant neoplasm of thyroid; Z87.891 Personal history of nicotine dependence; Z92.3 Personal history of irradiation; Z95.5 Presence of coronary angioplasty implant and graft; Z96.643 Presence of artificial hip joint, bilateral
CPT/HCPCS: 36415; 51702; 51798; 71046; 74018; 74019; 74176; 80048; 80053; 81001; 82150; 82550; 82553; 83540; 83550; 83605; 83690; 83735; 84439; 84443; 84484; 85025; 85610; 85652; 85730; 86140; 87086; 93306; 94640; 96374; 99285